=== PATIENT | male | born 1945 | race Caucasian/White ===

== ENCOUNTER 2019-11-08 07:06 | Outpatient (CLI) | payer MEDICARE, SELFPAY ==
--- NOTE | ~2019-11-08 | CT_ITS ---
EXAMINATION:CT lung screening DATE: 11/08/2019 07:25 INDICATION: Personal history of tobacco dependence. Smoker who quit 1 year ago with 60 pack year hist ory. TECHNIQUE: Computed tomography (CT) of the chest was performed without intravenous contrast. Automate d exposure control and iterative reconstruction technique were employed. The dose-length product (DLP ) was 85.61 mGy-cm. COMPARISON: Chest CT 09/21/2018 FINDINGS: There is moderate emphysema. Again seen is mild scarring at the lung apices. There is a 2 m m nodule in left upper lobe without change. A calcified left lung nodule and calcified left hilar lym ph nodes are consistent with old granulomatous disease. No pleural effusion. The heart size is normal . No pericardial effusion. There is a 3.0 cm cyst in left kidney. There is severe thoracic and cervic al spondylosis. IMPRESSION: 1. Lung-RADS category 2: Benign appearance or behavior. Continue annual screening with noncontrast lo w-dose chest CT in 12 months. Reviewed, dictated and finalized at location B. IMPRESSION: 1. Lung-RADS category 2: Benign appearance or behavior. Continue annual screeni ng with noncontrast low-dose chest CT in 12 months.
== END 2019-11-08 07:07 | disposition home or self-care (01) ==
LOC: ANHIMG 07:08
PROVIDERS: PCP Internal Medicine; Visit Provider Nurse Practitioner Family
DX: Z72.0 Tobacco use (principal); Z87.891 Personal history of nicotine dependence
CPT/HCPCS: G0297

== ENCOUNTER 2020-03-30 07:23 | Outpatient (CLI) | payer MEDICARE, SELFPAY ==
--- NOTE | ~2020-03-30 | US_ITS ---
US arterial ankle brachial ind INDICATION: Peripheral vascular disease. TECHNIQUE: Segmental pressures and plethysmographic and Doppler waveforms of the brachial and lower e xtremity arteries were obtained. COMPARISON: None. FINDINGS: Right and left brachial artery pressures of 176 mm Hg and 176 mm Hg, respectively, are concordant (no rmal difference <= 30 mmHg). The right ankle-brachial index (DINORAH) is 0.91 (normal >= 0.9-1.0). The right great toe-brachial index (TBI) is 0.43 (normal >= 0.60). The left DINORAH is 0.9. The left TBI is 0.5 to. IMPRESSION: 1. Diminished bilateral toe brachial indices consistent with mild peripheral arterial disease. Reviewed, dictated and finalized at location A. STRIAL RELATIONS DIRECTOR IMPRESSION: 1. Diminished bilateral toe brachial indices consistent with mild peripheral ar terial disease.
--- NOTE | ~2020-03-30 | US_ITS ---
EXAMINATION: US aorta [facility] scrn DATE: 03/30/2020 09:00 MACHINE SANDER INDICATION: Obesity. History of smoking. Screening for aortic aneurysm. TECHNIQUE: Grayscale, color Doppler, and pulsed Doppler images of the aorta and common iliac arteries were obtained. COMPARISON: None. FINDINGS: The proximal aorta measures 2.6 cm greatest sagittal dimension. The mid aorta measures 2.3 cm greates t sagittal dimension. The distal aorta measures 2.1 cm greatest sagittal dimension. The common iliac arteries are not visualized. IMPRESSION: 1. Normal caliber abdominal aorta without aneurysm. Reviewed, dictated and finalized at location A. INE SANDER
--- NOTE | 2020-03-30 08:21 | ECG_ITS ---
Measurements Intervals [place] Rate: 49 P: 38 CT: 192 QRS: 69 QRSD: 101 T: 30 QT: 440 QTc: 401 Interpretive Statements SINUS BRADYCARDIA DELAYED PRECORDIAL R/S TRANSITION BORDERLINE ECG Electronically Signed On 03-30-2020 8:55:08 CUSTOM HARVESTER by Tino Snowden D.O.
== END 2020-03-30 07:24 | disposition home or self-care (01) ==
LOC: ANHIMG 07:26
PROVIDERS: PCP Internal Medicine; Visit Provider Internal Medicine
DX: I73.9 Peripheral vascular disease, unspecified (principal); F17.200 Nicotine dependence, unspecified, uncomplicated; Z13.6 Encounter for screening for cardiovascular disorders; I10 Essential (primary) hypertension; R94.31 Abnormal electrocardiogram [ECG] [EKG]
CPT/HCPCS: 76706; 93005; 93922

== ENCOUNTER 2020-04-18 09:00 | Outpatient (CLI) | payer MEDICARE, SELFPAY ==
--- NOTE | ~2020-04-18 | CT_ITS ---
EXAMINATION: CT abdomen pelvis wo con EXAM DATE: 04/18/2020 09:27 INDICATION: K46.9 - Unspecified abdominal hernia without obstruction or gangrene. TECHNIQUE: Spiral CT of the abdomen and pelvis was performed without contrast. Axial, coronal and s agittal images were reviewed. The dose-length product (DLP) for this examination was 472.28 mGy-cm. The exposure was tailored according to patient size (auto mA exposure control), and iterative recons truction (ASIR) was used as additional dose reduction technique. Comparison is made to prior examinat ion from 04/11/2016. FINDINGS: The liver, spleen, adrenal glands and pancreas are unremarkable. Gallbladder is unremarkab le. No biliary obstruction. There is no nephrolithiasis or hydronephrosis. There are bilateral cristhian l lesions consistent with cysts. Prostate radiation seeds. The bladder is undistended at time of im aging. There is no retroperitoneal or pelvic lymphadenopathy. There is mild scattered arterioscler otic disease. The appendix is normal. There is mild scattered colonic diverticulosis. There is no adjacent inflamm atory change to suggest diverticulitis. The stomach and small bowel are unremarkable. There is expec kleber amount of colonic stool. No free intraperitoneal gas. The heart is normal in size. There are no pericardial or pleural effusions. Mild to moderate emphys cody. Interval decrease in density of the 1.2 cm L5 vertebral body sclerotic lesion, with size unchan ged. Moderate to severe disc disease L2-3. There is right hip gamma nail and left hip replacement. IMPRESSION: 1. Small umbilical fat-containing hernia. 2. Mild colonic diverticulosis. 3. L5 sclerotic focus stable in size. Reviewed, dictated and finalized at location A. NT CARE NURSE PRACTITIONER
== END 2020-04-18 09:01 | disposition home or self-care (01) ==
PROVIDERS: PCP Internal Medicine; Visit Provider Internal Medicine
DX: K46.9 Unspecified abdominal hernia without obstruction or gangrene (principal); R10.9 Unspecified abdominal pain; K42.9 Umbilical hernia without obstruction or gangrene; K57.30 Diverticulosis of large intestine without perforation or abscess without bleeding
CPT/HCPCS: 74176

== ENCOUNTER 2020-05-01 10:56 | Outpatient (CLI) | payer MEDICARE, SELFPAY ==
--- NOTE | ~2020-05-01 | XR_ITS ---
XR chest 2V DATE: 05/01/2020 11:22 INDICATION: Shortness of breath. Smoker. TECHNIQUE: PA and lateral views COMPARISON: 11/08/2019 CT lung screening FINDINGS: Normal heart size. There is aortic tortuosity. No hilar or mediastinal enlargement. No pulmonary infiltrate or consolidation, pleural effusion or pulmonary vascular congestion or pneumo thorax. Osteopenia. IMPRESSION: No active cardiopulmonary disease Aortic tortuosity Reviewed, dictated and finalized at location A. TRIMMER
== END 2020-05-01 10:57 | disposition home or self-care (01) ==
PROVIDERS: PCP Internal Medicine; Visit Provider Nurse Practitioner Family
DX: R06.02 Shortness of breath (principal); R05 Cough
CPT/HCPCS: 71046

== ENCOUNTER 2020-06-19 12:59 | Outpatient (CLI) | payer MEDICARE, SELFPAY | END 2020-06-19 13:00 | disposition home or self-care (01) | LOC: ANHAUDIO 13:00 | PROVIDERS: PCP Internal Medicine; Visit Provider Internal Medicine | DX: H90.71 Mixed conductive and sensorineural hearing loss, unilateral, right ear, with unrestricted hearing on the contralateral side (principal); H90.42 Sensorineural hearing loss, unilateral, left ear, with unrestricted hearing on the contralateral side | CPT/HCPCS: 92557; 92567 ==

== ENCOUNTER 2020-08-28 15:21 | Emergency (ER) | payer MEDICARE, SELFPAY ==
[2020-08-28] VITALS (7 sets, daily range): BP systolic 152–170; BP diastolic 65–82; PULSE 40–48; RESP 15–19; TEMP 36.3–36.9; O2SAT 98–99
--- NOTE | ~2020-08-28 | CT_ITS ---
EXAMINATION: CTA brain carotid DATE: 08/28/2020 16:48 INDICATION: Dizziness. Headache. TECHNIQUE: Computed tomographic angiography (CTA) of the head was performed without and with 100 mL O mnipaque-350 intravenous contrast. CTA of the neck was performed with intravenous contrast. Automated exposure control and iterative reconstruction technique were employed. The dose-length product was 1 602.90 mGy-cm. Maximum intensity projection and volume rendered 3D-reconstructions were created by ralph tucker technologist on a separate workstation. COMPARISON: None. FINDINGS: HEAD CTA: There is an old infarct in left temporal occipital region. There is no intracranial hemorrh age, acute infarction, or abnormal intracranial mass lesion. There is an old infarct in right caudate nucleus. There are scattered areas of low attenuation in the cerebral white matter, which is within normal limits for the patient's age. The ventricles are normal in size. Left vertebral artery is manav nant. There is no significant stenosis of basilar artery or the posterior cerebral arteries. There is embolization material in the area of right posterior cerebral communicating artery. There is a 1.2 c m saccular aneurysm of the cavernous portion of left internal carotid artery. The aneurysm causes mod erate stenosis of the internal carotid artery. Anterior communicating artery is normal. There is no s ignificant stenosis of the anterior or middle cerebral arteries. NECK CTA: The visualized portions of the lung apices demonstrate moderate emphysema. There are no pat hologically enlarged lymph nodes. There is no significant stenosis of the vertebral arteries. There i s plaque in the proximal internal carotid arteries. There is 0% stenosis of the proximal right collector of internal revenue al carotid artery relative to normal distal artery lumen diameter (NASCET criteria). There is 0% sten osis of the proximal left internal carotid artery relative to normal distal artery lumen diameter. Th ere is severe cervical spondylosis. IMPRESSION: 1. 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 I discussed this result with Dr. Hernandez. 2. 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 3. 0% stenosis of the proximal internal carotid arteries relative to normal distal artery lumen diame ters (NASCET criteria). Reviewed, dictated and finalized at location A. IMPRESSION: 1. 1.2 cm saccular aneurysm of the cavernous portion of left internal carotid a rtery causing moderate stenosis on the internal carotid artery. I discussed thi s result with Dr. Hernandez. 2. 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 3. 0% stenosis of the proximal internal carotid arteries relative to normal dis nancy artery lumen diameters (NASCET criteria).
--- NOTE | 2020-08-28 15:41 | ECG_ITS ---
Measurements Intervals [place] Rate: 42 P: 64 [place]: 216 QRS: 73 QRSD: 102 T: 30 QT: 485 QTc: 407 Interpretive Statements SINUS BRADYCARDIA WITH FIRST DEGREE AV BLOCK MINIMAL Q WAVES- INFERIOR LEADS BASELINE ARTIFACT- II, III, AVF, V1, V3-V6 ABNORMAL ECG Electronically Signed On 08-28-2020 16:48:10 CDT by Tino Snowden D.O.
--- NOTE | 2020-08-28 16:01 | ED.DIZZY ---
HPI - Dizziness General Chief Complaint: Dizziness Stated Complaint: Dizzy Time Seen by Provider: 08/28/20 15:33 Source: patient and RN notes reviewed Mode of arrival: ambulatory Limitations: no limitations History of Present Illness HPI Narrative: This is a 74 year old male with history right cerebral aneurysm who presents for evaluation of 3 weeks of dizziness. He states he started with a posterior headache for 1 week. He reports his headache is still intermittent also he denies a headache now. He states he has been having difficulty walking for 3 weeks, and he has almost fall. He reports intermittent episodes of spinning. His last episodes of dizziness was 30 minutes. He states 20 years ago he was diagnosed with his aneurysm after having similar episodes. His aneursym was repaired 20 years ago in [place] and he has not needed to follow with neurosurgeon since. He denies focal weakness, numbness or tingling. He denies blurred vision or double vision. Timing: episodic History of similar symptoms: Yes Exacerbating factors: movement/ambulation Related Data Allergies Allergy/AdvReac Type Severity Reaction Status Date / Time No Known Allergies Allergy Verified 08/28/20 16:33 Review of Systems Review of Systems: All systems reviewed & are unremarkable except as noted in HPI and below Constitutional: Constitutional: Denies chills and Denies fever(s) Eyes: Eyes: Denies change in vision ENT: Reports dizziness Cardiovascular: Cardiovascular: Reports chest pain Respiratory: Respiratory: Denies dyspnea Neurologic: Reports headache(s) [facility] Past Medical History Medical History Brain aneurysm COPD (chronic obstructive pulmonary disease) DVT of lower extremity, bilateral Hypertension Nicotine dependence SOB (shortness of breath) Tobacco abuse Surgical History Surgical History Cataract Family History Family History Sibling Acute myocardial infarction Other Family history of malignant neoplasm Social History Social History Smoking packs per day: 1 Smoking cigarettes per day: 20.0 Years smoked: 61 Smoking pack-years: 61.00 Smoking status: Current every day smoker Alcohol intake: current Exam Const: General: no acute distress and alert Orientation/consciousness: patient oriented x3 HENMT: Head: normocephalic and atraumatic Ears: TM's normal bilaterally General nose exam: Normal external nose present, Normal nares present and No nasal polyps present Face and sinus: face symmetric Mouth: Yes Normal oral and palatal mucosa present, Yes lip normal, Yes oropharynx normal and Yes moist mucous membranes Eyes: Pupils: Equal, round and reactive pupils present EOM: EOMs intact bilaterally and Nystagmus present Resp: Effort & Inspection: normal respiratory effort and no retractions Auscultation: clear to auscultation bilaterally Cardio: Rate: bradycardic Rhythm: regular rhythm Heart sounds: no murmurs GI: GI Palp: Yes Soft to palpation, No Tenderness to palpation present (GI) and No Guarding due to palpation present (GI) Auscultation: normal bowel sounds Neuro: General: patient oriented x3, moves all extremities, no meningeal signs, no focal motor deficits and CN's II-XI intact bilaterally Cranial nerves: Yes Nystagmus present horizontal Speech: normal speech Gait exam (Neuro): Normal gait present Motor exam (neuro): 5/5 motor strength present throughout Sensory Exam: normal sensation Coordination: [id number] test normal and [id number] test normal Psych: Mental Status: mental status grossly normal Affect: normal affect Course Reevaluation(s) Reevaluation #1: I have discussed with patient and his imaging and labs results. They have been made aware of new
--- NOTE | 2020-08-28 16:07 | PC.NURSE ---
Called lab and added on a Hepatic, Lipase, and Trop 1 Baseline. Talked to Jason
[2020-08-28 16:08] LABS: Basophils Percent Auto 0.3 % (0.2-1.2); Eosinophils Absolute Auto 0.2 K/mm3 (0-0.3); Eosinophils Percent Auto 2.8 % (0-4.4); Hematocrit 38.2 % (42.0-52.0); Hemoglobin 12.8 g/dL (14.0-18.0); Immature Granulocyte Absolute 0.03 K/mm3 (0.00-0.031); Immature Granulocyte Percent A 0.4 % (0-0.5); Lymphocytes Absolute Auto 1.64 K/mm3 (0.9-3.2); Mean Corpuscular HGB Conc 33.5 g/dl (32-36); Mean Corpuscular Hemoglobin 32.7 pg (26-34); Mean Corpuscular Volume 97.4 fl (80-100); Mean Platelet Volume 10.2 fl (7.4-10.4); Monocytes Absolute Auto 0.9 K/mm3 (0.1-0.6); Monocytes Percent Auto 12.7 % (2.6-8.5); Neutrophils Absolute Auto 4.3 K/mm3 (1.3-6.7); Neutrophils Percent Auto 60.8 % (45.5-73.1); Platelet Count Result 153 k/mm3 (150-375); Red Blood Count 3.92 M/mm3 (4.6-6.20); Red Cell Distribution Width 13.4 % (11.5-14.5); White Blood Count 7.1 K/mm3 (4.5-10.0)
[2020-08-28] MEDS: MECLIZINE HCL 25 MG TABLET PO (16:12)
[2020-08-28 16:20] LABS: Alanine Aminotransferase 12 U/L (4-50); Albumin Level 4.1 g/dL (3.5-5.1); Alkaline Phosphatase 81 U/L (38-126); Anion Gap 9 mmol/L (8-16); Aspartate Amino Transferase 28 U/L (17-59); Bilirubin,Total 0.8 mg/dL (0.2-1.3); Blood Urea Nitrogen 37 mg/dL (9-20); Calcium 9.3 mg/dL (8.4-10.2); Carbon Dioxide 24 mmol/L (22-30); Chloride 107 mmol/L (98-107); Estimated Glomerular Filt Rate 37; Glucose 102 mg/dL (75-110); Lipase 154 U/L (23-300); Potassium 4.4 mmol/L (3.4-5.0); Sodium 140 mmol/L (137-145)
[2020-08-28 16:22] LABS: Partial Thromboplastin Time 27.8 SECONDS (22.3-36.8)
[2020-08-28 16:31] LABS: Troponin I < 0.012 ng/mL (0.000-0.034)
--- NOTE | 2020-08-28 16:56 | PC.NURSE ---
Called Griselda martin, asked about the Hepatic, Lipase, and Trop I Baseline we called about at 1607. Said she would look for a green and run it.
[2020-08-28 17:07] LABS: Alanine Aminotransferase 13 U/L (4-50); Albumin Level 4.1 g/dL (3.5-5.1); Alkaline Phosphatase 80 U/L (38-126); Aspartate Amino Transferase 30 U/L (17-59); Bilirubin,Total 0.8 mg/dL (0.2-1.3); Lipase 157 U/L (23-300)
[2020-08-28] MEDS: SODIUM CHLORIDE 0.9% IV 1,000 ML 999 ML IV CONT (17:10)
[2020-08-28 17:17] LABS: Troponin I < 0.012 ng/mL (0.000-0.034)
--- NOTE | 2020-08-28 18:20 | PC.NURSE ---
Patient was able to get up, get dressed, and ambulate with cane without difficulty. Patient denies feeling dizzy while ambulating.
== END 2020-08-28 19:00 | disposition home or self-care (01) ==
PROVIDERS: Emergency Medicine; Emergency Provider General Practice; PCP Internal Medicine
DX: I67.1 Cerebral aneurysm, nonruptured (principal); R42 Dizziness and giddiness; J44.9 Chronic obstructive pulmonary disease, unspecified; Z86.718 Personal history of other venous thrombosis and embolism; I10 Essential (primary) hypertension; Z98.49 Cataract extraction status, unspecified eye; F17.210 Nicotine dependence, cigarettes, uncomplicated; R00.1 Bradycardia, unspecified; I44.0 Atrioventricular block, first degree
CPT/HCPCS: 36415; 70496; 70498; 80048; 80076; 83690; 84484; 85025; 85610; 85730; 93005; 96360; 99284; A9270; J7030; Q9967

== ENCOUNTER 2020-12-04 11:31 | Emergency (ER) | payer MEDICARE, SELFPAY ==
[2020-12-04 11:59] VITALS: BP 185/69; PULSE 48; RESP 16; TEMP 36.4; O2SAT 98
--- NOTE | 2020-12-04 12:01 | ECG_ITS ---
Measurements Intervals [place] Rate: 45 P: 51 MI: 205 QRS: 59 QRSD: 103 T: 34 QT: 447 QTc: 390 Interpretive Statements SINUS BRADYCARDIA BORDERLINE AV CONDUCTION DELAY DELAYED PRECORDIAL R/S TRANSITION BASELINE WANDER- I, III ABNORMAL ECG Electronically Signed On 12-04-2020 18:59:37 CDT by Tino Snowden D.O.
--- NOTE | 2020-12-04 12:13 | PC.NURSE ---
blood draw attempt x2 at triage; pt. pulled away each time, unable to obtain.
--- NOTE | 2020-12-04 12:42 | PC.NURSE ---
patient reported to triage desk that the wait was too long and left
== END 2020-12-04 12:40 | disposition left against medical advice (07) ==
PROVIDERS: Emergency Provider Emergency Medicine; PCP Internal Medicine
DX: R42 Dizziness and giddiness (principal)
CPT/HCPCS: 93005; 99199

== ENCOUNTER 2020-12-10 10:09 | Outpatient (CLI) | payer MEDICARE, SELFPAY ==
--- NOTE | ~2020-12-10 | MR_ITS ---
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 TECHNIQUE: Magnetic resonance imaging (MRI) of the brain/brain stem obtained without contrast. Sagit nancy T1, axial diffusion, gradient echo (T2*), T1, T2, FLAIR sequences obtained. Patient was then inj ected with 13 cc intravenous Multihance contrast. Axial and coronal postcontrast T1 weighted sequence s obtained. Correlation is made to CTA brain 08/28/2020. FINDINGS: There is an old right caudate head lacunar infarction. There is mild microangiopathy and ce rebral atrophy. There is moderate-sized region of left temporal lobe encephalomalacia consistent with old infarction. Correlation made to prior CT angiogram from August, demonstrates a surgical clip or coils treating a di stal right ICA aneurysm.. The 1.2 cm left parasellar aneurysm is identified but better seen on that p rior CT angiogram. There are no areas of restricted diffusion to suggest acute infarction. There is no acute hemorrhage seen on the T2*, a hemosiderin sensitive sequence. No intraparenchymal brain mass. The ventricles a re normal in size. There are no extra-axial collections. Patient has had bilateral ocular lens smalls rgery. Soft tissue is unremarkable. There are no areas of abnormal enhancement on the postcontrast images. IMPRESSION: 1. No acute intracranial findings. 2. Left parasellar ICA aneurysm, treated distal right ICA aneurysm. 3. 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 4. Mild age-related intracranial findings. 5. No MR findings to suggest NPH. Reviewed, dictated and finalized at location B.
== END 2020-12-10 10:10 | disposition home or self-care (01) ==
LOC: ANHIMG 10:11
PROVIDERS: PCP Internal Medicine; Visit Provider Internal Medicine
DX: G91.2 (Idiopathic) normal pressure hydrocephalus (principal)
CPT/HCPCS: 70553; A9577

== ENCOUNTER 2021-03-15 10:06 | Outpatient (CLI) | payer MEDICARE, SELFPAY ==
--- NOTE | ~2021-03-15 | CT_ITS ---
EXAMINATION: CT lung screening DATE: 03/15/2021 11:14 INDICATION: Personal history of tobacco dependence. TECHNIQUE: Computed tomography (CT) of the chest was performed without intravenous contrast. The dose -length product was 118.94 mGy-cm. Automated exposure control and iterative reconstruction technique were employed. COMPARISON: CT dated 11/08/2019 FINDINGS: Heart size normal. No significant pleural or pericardial effusion. No thoracic lymphadenopa thy. There are multiple bilateral renal cysts. Moderate-severe emphysema. There is a 2 mm right upper lobe nodule, image 22. There is a 2 mm left upper lobe nodule. No pneumothorax. There is atheroscler osis and ectasia of the aorta. No peripheral airspace consolidation. There are calcified left hilar l ymph nodes, consistent with chronic granulomatous disease. Moderate thoracic spondylosis. No focal ly tic or blastic lesions. IMPRESSION: 1. Lung-RADS category 2: Benign appearance or behavior. Continue annual screening with noncontrast lo w-dose chest CT in 12 months. Reviewed, dictated and finalized at location A. FICIAL TEETH INSPECTOR IMPRESSION: 1. Lung-RADS category 2: Benign appearance or behavior. Continue annual screeni ng with noncontrast low-dose chest CT in 12 months.
== END 2021-03-15 10:07 | disposition home or self-care (01) ==
LOC: ANHIMG 10:09
PROVIDERS: PCP Internal Medicine; Visit Provider Nurse Practitioner Family
DX: Z12.2 Encounter for screening for malignant neoplasm of respiratory organs (principal); Z87.891 Personal history of nicotine dependence
CPT/HCPCS: 71271

== ENCOUNTER 2021-04-22 12:06 | Outpatient (RCR) | payer MEDICARE, SELFPAY ==
[2021-04-22] MEDS: ACETAMINOPHEN 325 MG TABLET 650 MG PO (14:30)
[2021-04-22] MEDS: FAMOTIDINE 20 MG TABLET PO (14:31)
[2021-04-22] MEDS: diphenhydrAMINE HCl CAP 25 MG CAPSULE PO (14:31)
[2021-04-22 15:52] VITALS: BP 129/70; PULSE 77; TEMP 36.6; O2SAT 97
== END 2021-04-22 16:00 ==
LOC: AMCINF 12:06
PROVIDERS: PCP Internal Medicine; Visit Provider Internal Medicine Hematology & Oncology
DX: U07.1 COVID-19 (principal); I10 Essential (primary) hypertension; J44.9 Chronic obstructive pulmonary disease, unspecified
CPT/HCPCS: A9270; M0247; Q0247

== ENCOUNTER 2021-07-15 09:33 | Outpatient (CLI) | payer MEDICARE, SELFPAY ==
--- NOTE | ~2021-07-15 | XR_ITS ---
EXAMINATION: XR chest 2V DATE: 07/15/2021 10:17 INDICATION: Cough and shortness of breath. TECHNIQUE: Frontal and lateral views of the chest were obtained. COMPARISON: Chest 2 views 05/01/2020, chest CT 03/15/2021 FINDINGS: The lungs are hyperexpanded with lucencies, consistent with emphysema. There is mild scarri ng at right lung base. No pleural effusion or pneumothorax. The heart size is normal. IMPRESSION: 1. Emphysema. Reviewed, dictated and finalized at location B. IMPRESSION: 1. Emphysema.
[2021-07-15 10:21] LABS: Basophils Percent Auto 0.5 % (0.2-1.2); Eosinophils Absolute Auto 0.2 K/mm3 (0-0.3); Eosinophils Percent Auto 2.5 % (0-4.4); Hematocrit 35.6 % (42.0-52.0); Hemoglobin 11.9 g/dL (14.0-18.0); Immature Granulocyte Absolute 0.01 K/mm3 (0.00-0.031); Immature Granulocyte Percent A 0.2 % (0-0.5); Lymphocytes Absolute Auto 1.29 K/mm3 (0.9-3.2); Lymphocytes Percent Auto 20.1 % (18.3-44.2); Mean Corpuscular HGB Conc 33.4 g/dl (32-36); Mean Corpuscular Hemoglobin 32.6 pg (26-34); Mean Corpuscular Volume 97.5 fl (80-100); Mean Platelet Volume 9.7 fl (7.4-10.4); Monocytes Absolute Auto 0.9 K/mm3 (0.1-0.6); Monocytes Percent Auto 13.6 % (2.6-8.5); Neutrophils Absolute Auto 4.1 K/mm3 (1.3-6.7); Neutrophils Percent Auto 63.1 % (45.5-73.1); Platelet Count Result 183 k/mm3 (150-375); Red Blood Count 3.65 M/mm3 (4.6-6.20); Red Cell Distribution Width 13.5 % (11.5-14.5); White Blood Count 6.4 K/mm3 (4.5-10.0)
[2021-07-15 10:34] LABS: Alanine Aminotransferase 13 U/L (4-50); Albumin Level 4.1 g/dL (3.5-5.1); Alkaline Phosphatase 101 U/L (38-126); Anion Gap 8 mmol/L (8-16); Aspartate Amino Transferase 27 U/L (17-59); Bilirubin,Total 0.7 mg/dL (0.2-1.3); Blood Urea Nitrogen 17 mg/dL (9-20); Calcium 8.9 mg/dL (8.4-10.2); Carbon Dioxide 22 mmol/L (22-30); Chloride 109 mmol/L (98-107); Estimated Glomerular Filt Rate 46; Glucose 104 mg/dL (65-110); Sodium 139 mmol/L (137-145)
== END 2021-07-15 09:34 | disposition home or self-care (01) ==
PROVIDERS: PCP Internal Medicine; Visit Provider Nurse Practitioner Family
DX: J44.9 Chronic obstructive pulmonary disease, unspecified (principal); R06.02 Shortness of breath
CPT/HCPCS: 36415; 71046; 80053; 85025

== ENCOUNTER 2021-07-19 09:28 | Outpatient (CLI) | payer MEDICARE, SELFPAY ==
--- NOTE | ~2021-07-19 | NM_ITS ---
EXAMINATION: NM alia stress w perfusion DATE: 07/19/2021 11:55 INDICATION: Dyspnea on exertion. TECHNIQUE: Rest images were obtained following intravenous administration of 10 mCi Tc99m tetrofosmin (Myoview). The patient was infused intravenously with Lexiscan (regadenoson). Then, 20.8 mCi Tc99m t etrofosmin (Myoview) was administered intravenously, and stress images were obtained. Data was recons tructed into short axis and horizontal and vertical long axis SPECT images. Gated SPECT images were a lso obtained. COMPARISON: Chest CT 03/15/2021 FINDINGS: There is no definite reversible or fixed perfusion abnormality to suggest ischemia or infar ction. There is no segmental wall motion abnormality. Left ventricular ejection fraction measures > 70%. IMPRESSION: 1. No definite ischemia or infarct. 2. Normal left ventricular ejection fraction measuring >70%. Reviewed, dictated and finalized at location A.
--- NOTE | 2021-07-19 10:07 | EST_ITS ---
Patient Info Name: Reji Briceno Age: 75 years : 1945 Gender: Male Ht: 49 in Wt: 147 lbs BSA: 1.57 m2 HR: 52 bpm BP: 148 / 73 mmHg Heart Rhythm: Sinus Rhythm Exam Date: 07/19/2021 10:33 AM Exam Location: [facility] Stress Patient Status: Outpatient Admit Date: 07/19/2021 Staff Ordering Physician: Gabino Bailey APRN Attending Provider: Gabino Bailey APRN Exam Type: CA stress alia w NM Study Info Indications R06.02 - Shortness of breath A regadenoson stress test was performed. Summary 1. 1. Negative lexiscan stress test for ischemic ST changes by ECG criteria. 2. 2. Stable hemodynamics throughout the test. 3. 3. Nuclear scan to follow and will be reported separately. Please correlate with it. 4. 4. Patient informed of the above results. Protocol: Lexiscan Stress ECG Details Stage: REST Duration (min): 1 min : 17 sec HR (bpm): 54 SBP (mmHg): 148 DBP (mmHg): 73 Stage: REST Duration (min): 9 min : 31 sec HR (bpm): 57 SBP (mmHg): 148 DBP (mmHg): 73 Stage: STAGE 1 Duration (min): 0 min : 59 sec HR (bpm): 65 SBP (mmHg): 148 DBP (mmHg): 73 Stage: RECOVERY Duration (min): 1 min : 0 sec HR (bpm): 71 SBP (mmHg): 136 DBP (mmHg): 70 Stage: RECOVERY Duration (min): 2 min : 0 sec HR (bpm): 69 SBP (mmHg): 136 DBP (mmHg): 70 Stage: RECOVERY Duration (min): 2 min : 59 sec HR (bpm): 67 SBP (mmHg): 133 DBP (mmHg): 73 Rest HR: 57 bpm Peak HR: 74 bpm Rest Sys BP: 148 mmHg Peak Sys BP: 136 mmHg Max Pred HR: 145 bpm % Max Pred HR: 51 % Target HR: 123 bpm Max RPP: 10,064 bpm*mmHg Termination Reason: Completed protocol Cardiac Symptoms: Shortness of breath Total Time: 1 min : 0 sec Rest Xavier BP: 73 mmHg Peak Xavier BP: 70 mmHg Total Dose: 0.4 mg Resting ECG Sinus bradycardia, first degree AV block, delayed precordial R/S transition. Stress ECG No ST changes. Arrhythmias None. Report Signatures
== END 2021-07-19 09:29 | disposition home or self-care (01) ==
LOC: ANHCARD 09:31
PROVIDERS: PCP Internal Medicine; Visit Provider Nurse Practitioner Family
DX: R06.02 Shortness of breath (principal)
CPT/HCPCS: 78452; 93017; A9502; J2785

== ENCOUNTER 2021-08-11 11:31 | Outpatient (CLI) | payer MEDICARE, SELFPAY ==
--- NOTE | ~2021-08-11 | XR_ITS ---
XR abdomen/kub 1V 08/11/2021 11:51 Indication: Abdominal distention Procedure: KUB Comparison: No prior studies for comparison. Findings: Nonobstructive bowel gas pattern. Large amount of retained fecal material in the colon. The re is a left total hip arthroplasty. There are dynamic compression screws in the right femoral neck. Lung bases unremarkable. Cardiomegaly. Impression: 1: Nonobstructive bowel gas pattern with large amount of retained fecal material in the colon. Reviewed, dictated and finalized at location A. Impression: 1: Nonobstructive bowel gas pattern with large amount of retained fecal materia l in the colon.
== END 2021-08-11 11:32 | disposition home or self-care (01) ==
PROVIDERS: PCP Internal Medicine; Visit Provider Internal Medicine
DX: R14.0 Abdominal distension (gaseous) (principal); N20.0 Calculus of kidney
CPT/HCPCS: 74018

== ENCOUNTER 2021-08-19 13:30 | Outpatient (CLI) | payer MEDICARE, SELFPAY ==
--- NOTE | 2021-08-20 11:53 | WPDSIXMINUTE ---
Six Minute Walk Procedure Procedure Performed Pulmonary Stress Test (6 min walk) Six Minute Walk Six Minute Walk: This 6 minute walk test was carried out with the patient breathing ambient air. The pre walk oxyhemoglobin saturation was 96%. The patient walked over 335 m with no stops during testing. During the walk, the oxyhemoglobin saturation remained 93% or higher. The perceived dyspnea on the Marc scale was 3 at baseline and increased to 5 at the end of the testing. Impression: No evidence of oxyhemoglobin desaturation on this testing.
--- NOTE | 2021-08-20 11:56 | WPDPFTINT ---
PFT Procedure Performed PFT Procedure Performed Spirometry with Pre/Post Bronchodilator Plethysmography (Lung Vol) Diffusing Cap (DLCO) Flow Vol Loop PFT Interpretation Lung volumes were measured with the body plethysmography method. Lung volumes are unremarkable. Spirometry showed normal normal FVC and FEV1, diminished mid expiratory flow rates at 36 % predicted and a diminished FEV1 to FVC ratio of 55% consistent with mild obstructive airway disease. Following administration of a bronchodilator there was no significant increase in expiratory flow rates. Lung diffusion capacity is severely reduced at 40% predicted. Flow volume loop is consistent with obstructive airway disease. Impression: Mild obstructive airway disease in the form of small airway disease with no response to bronchodilators on this testing. Severely reduced lung diffusion capacity.
== END 2021-08-19 13:31 | disposition home or self-care (01) ==
PROVIDERS: PCP Internal Medicine; Visit Provider Nurse Practitioner Family
DX: R06.02 Shortness of breath (principal)
CPT/HCPCS: 94060; 94618; 94726; 94729

== ENCOUNTER 2022-03-29 10:05 | Outpatient (CLI) | payer MEDICARE, SELFPAY ==
--- NOTE | ~2022-03-29 | CT_ITS ---
EXAMINATION:CT lung screening DATE: 03/29/2022 10:26 INDICATION: Tobacco use. Smoker who quit 1 year ago with 61 pack year history. TECHNIQUE: Computed tomography (CT) of the chest was performed without intravenous contrast. Automate d exposure control and iterative reconstruction technique were employed. The dose-length product (DLP ) was 111.13 mGy-cm. COMPARISON: Chest CT 03/15/2021 FINDINGS: There is severe emphysema. There is mild scarring in paraspinal right lower lobe. There is mild scarring at the lung apices. There is mild atelectasis bilaterally. There is a 2 mm nodule in ri ght upper lobe. There is a 3 mm nodule in right upper lobe. There is a 2 mm nodule in left upper lobe . No pleural effusion. Calcified left hilar lymph nodes are consistent with old granulomatous disease . No pleural effusion. The heart size is normal. No pericardial effusion. There is a 4.1 cm cyst in l eft kidney. There is severe cervical and thoracic spondylosis. IMPRESSION: 1. Lung-RADS category 2: Benign appearance or behavior. Continue annual screening with noncontrast lo w-dose chest CT in 12 months. Reviewed, dictated and finalized at location A. ECTOR ALIGNING IMPRESSION: 1. Lung-RADS category 2: Benign appearance or behavior. Continue annual screeni ng with noncontrast low-dose chest CT in 12 months.
== END 2022-03-29 10:06 | disposition home or self-care (01) ==
PROVIDERS: PCP Internal Medicine; Visit Provider Nurse Practitioner Family
DX: Z12.2 Encounter for screening for malignant neoplasm of respiratory organs (principal); Z87.891 Personal history of nicotine dependence
CPT/HCPCS: 71271

== ENCOUNTER 2022-08-20 09:06 | Outpatient (CLI) | payer MEDICARE, SELFPAY ==
--- NOTE | ~2022-08-20 | XR_ITS ---
EXAMINATION: XR lumbar spine 2-3V DATE: 08/20/2022 09:46 INDICATION: Lumbar radiculopathy. Low back pain. TECHNIQUE: 3 views of lumbar spine were obtained. COMPARISON: CT abdomen and pelvis 04/18/2020 FINDINGS: There is 3 degrees levocurvature of lumbar spine. Vertebral body heights are normal. There is a chronic benign sclerotic lesion in L5 vertebral body. There is severely decreased disc height at L2-L3 with endplate remodeling. There is multilevel mild to moderate facet joint osteoarthrosis. The re is a total left hip arthroplasty. There is internal fixation of proximal right femur. IMPRESSION: 1. Severe spondylosis at L2-L3. Reviewed, dictated and finalized at location A.
--- NOTE | ~2022-08-20 | XR_ITS ---
EXAMINATION: XR ribs BI 3V w CXR 2V DATE: 08/20/2022 09:46 INDICATION: Pleurodynia. TECHNIQUE: Frontal and lateral views of the chest and 2 views on 3 radiographs of the right ribs and 2 views on 3 radiographs of the left ribs were obtained. COMPARISON: Chest 2 views 07/15/2021, chest CT 03/29/2022 FINDINGS: CHEST TWO VIEWS: There are lucencies and interstitial opacities in the lungs, consistent with emphyse ma. No pleural effusion or pneumothorax. The heart size is normal. BILATERAL RIBS: There is no rib fracture. IMPRESSION: 1. No rib fracture. 2. Emphysema. Reviewed, dictated and finalized at location A.
--- NOTE | ~2022-08-20 | XR_ITS ---
. EXAMINATION: XR thoracic spine 3V DATE: 08/20/2022 09:47 INDICATION: Radiculopathy. Mid to low back pain. TECHNIQUE: 3 views of thoracic spine were obtained. COMPARISON: Chest CT 03/29/2022 FINDINGS: There is 9 degrees dextrocurvature of thoracic spine. There is 3 mm anterolisthesis of C7 o n T1. Vertebral body heights are normal. There is severe cervical spondylosis. There is multilevel de creased disc height, severe from T6-T7 through T9-T10. There is multilevel facet joint osteoarthritis . IMPRESSION: 1. Severe thoracic spondylosis. Reviewed, dictated and finalized at location A.
== END 2022-08-20 09:07 | disposition home or self-care (01) ==
PROVIDERS: PCP Family Medicine; Visit Provider Nurse Practitioner Family
DX: R07.81 Pleurodynia (principal); M54.10 Radiculopathy, site unspecified; M54.04 Panniculitis affecting regions of neck and back, thoracic region; M43.04 Spondylolysis, thoracic region; M43.06 Spondylolysis, lumbar region; J43.9 Emphysema, unspecified
CPT/HCPCS: 71046; 71110; 72072; 72100

== ENCOUNTER 2023-03-13 10:23 | Observation (INO) | payer MEDICARE, SELFPAY ==
[2023-03-13] VITALS (36 sets, daily range): BP systolic 105–150; BP diastolic 42–112; PULSE 87–121; RESP 16–30; TEMP 36.2–36.7; O2SAT 90–100; BMI 28.2
--- NOTE | ~2023-03-13 | XR_ITS ---
EXAMINATION: XR chest 2V DATE: 03/13/2023 10:49 INDICATION: Bilateral lower chest pain TECHNIQUE: PA and lateral views of the chest are obtained. COMPARISON: 08/20/2022 FINDINGS: The lungs are free of acute opacities. No pleural effusion or pneumothorax. The cardiomedia stinal silhouette is normal. There is severe thoracic spondylosis. IMPRESSION: 1. No acute cardiopulmonary abnormality. Reviewed, dictated and finalized at location B. STRY AID TECHNICIAN
--- NOTE | 2023-03-13 10:24 | ECG_ITS ---
Measurements Intervals [place] Rate: 77 P: 85 MD: 196 QRS: 87 QRSD: 89 T: 76 QT: 357 QTc: 406 Interpretive Statements SINUS RHYTHM WITH OCCASIONAL VENTRICULAR PREMATURE COMPLEXES WITH OCCASIONAL SUPRAVENTRICULAR PREMATURE COMPLEXES NONSPECIFIC ST ABNORMALITY BORDERLINE ECG COMPARED TO ECG 12/04/2020 12:06:26 SIN[address]M NOW PRESENT ST (T WAVE) DEVIATION NOW PRESENT Electronically Signed On 03-13-2023 17:14:45 EDGING MACHINE OPERATOR by Hemant Rios M.D.
[2023-03-13 10:39] LABS: Basophils Percent Auto 0.2 % (0.2-1.2); Eosinophils Absolute Auto 0.2 K/mm3 (0-0.3); Hematocrit 38.1 % (42.0-52.0); Hemoglobin 12.7 g/dL (14.0-18.0); Immature Granulocyte Absolute 0.01 K/mm3 (0.00-0.031); Immature Granulocyte Percent A 0.2 % (0-0.5); Immature Platelet Fraction Pct 2.9 % (0.9-11.2); Lymphocytes Absolute Auto 0.84 K/mm3 (0.9-3.2); Lymphocytes Percent Auto 16.8 % (18.3-44.2); Mean Corpuscular HGB Conc 33.3 g/dl (32-36); Mean Corpuscular Hemoglobin 32.6 pg (26-34); Mean Corpuscular Volume 97.9 fl (80-100); Mean Platelet Volume 9.6 fl (7.4-10.4); Monocytes Absolute Auto 0.6 K/mm3 (0.1-0.6); Monocytes Percent Auto 11.4 % (2.6-8.5); Neutrophils Absolute Auto 3.4 K/mm3 (1.3-6.7); Neutrophils Percent Auto 68.4 % (45.5-73.1); Platelet Count Result 120 k/mm3 (150-375); Red Blood Count 3.89 M/mm3 (4.6-6.20); Red Cell Distribution Width 14.6 % (11.5-14.5)
[2023-03-13 10:51] LABS: Alanine Aminotransferase 19 U/L (6-50); Alkaline Phosphatase 103 U/L (38-126); Anion Gap 7 mmol/L (8-16); Aspartate Amino Transferase 33 U/L (17-59); Bilirubin,Total 0.8 mg/dL (0.2-1.3); Blood Urea Nitrogen 17 mg/dL (9-20); Carbon Dioxide 24 mmol/L (22-30); Chloride 108 mmol/L (98-107); Estimated Glomerular Filt Rate 59; Glucose 112 mg/dL (65-110); Lipase 150 U/L (23-300); Potassium 3.9 mmol/L (3.4-5.0); Sodium 139 mmol/L (137-145)
[2023-03-13 11:03] LABS: Troponin I < 0.012 ng/mL (0.000-0.034)
[2023-03-13] MEDS: ASPIRIN 81 MG CHEWABLE TABLET 243 MG PO (11:28)
[2023-03-13] MEDS: methylPREDNISolone SOD SUCC 125 MG VIAL IV PUSH (11:28)
[2023-03-13] MEDS: ALBUTEROL SULFATE NEB 2.5 MG/3 ML INH 15 MG INHALATION (11:34)
[2023-03-13] MEDS: IPRATROPIUM BR 0.02% INH SOLN 0.5 MG/2.5 ML VIAL 1.5 MG INHALATION (11:34)
[2023-03-13 11:47] LABS: Partial Thromboplastin Time 35.2 SECONDS (22.3-36.8); Prothrombin Time 13.4 Seconds (11.1-14.7)
--- NOTE | 2023-03-13 12:15 | ED.GENADULT ---
HPI - General Adult General Chief complaint: Chest Pain Stated complaint: chest pain Time Seen by Provider: 03/13/23 11:03 History of Present Illness HPI narrative: Patient is a 77-year-old male who presents ER with shortness of breath and cough. Ongoing for the last month. He had been seen by pulmonology was on a Z-Andrea and steroids for a short amount of time. He continues to get worse. No fevers or chills or sweats. Reports he had chest tightness today that is now resolved. No exertional chest pain. No loss of consciousness. Cough is occasionally productive. Related Data Home Medications Medication Instructions Recorded Confirmed acetaminophen 500 mg oral powder 500 mg PO Q6H PRN 04/11/22 11/14/22 packet (Tylenol Extra Strength) Allergies Allergy/AdvReac Type Severity Reaction Status Date / Time No Known Allergies Allergy Verified 11/14/22 11:37 Review of Systems Review of Systems: All systems reviewed & are unremarkable except as noted in HPI and below Constitutional: Constitutional: Reports no additional constitutional complaints ENT: Reports system reviewed and no additional complaints, except as documented Cardiovascular: Cardiovascular: Reports no additional cardiovascular complaints Respiratory: Respiratory: Reports chest congestion, Reports cough, Reports dyspnea and Reports wheezing Gastrointestinal: Gastrointestinal: Reports no additional gastrointestinal complaints Musculoskeletal: Musculoskeletal: Reports no additional musculoskeletal complaints [facility] Past Medical History Medical History Brain aneurysm CKD (chronic kidney disease) COPD (chronic obstructive pulmonary disease) COVID-14 Apr 2021. Received infusion therapy 04/22 DVT of lower extremity, bilateral Dyslipidemia Early satiety Essential hypertension Hematochezia History of prostate cancer Hypertension Marijuana use Nicotine dependence Obesity (BMI 30.0-34.9) DOMINIC (obstructive sleep apnea) PVD (peripheral vascular disease) SOB (shortness of breath) Tobacco abuse Surgical History Surgical History Cataract Family History Family History Sibling Acute myocardial infarction Other Family history of malignant neoplasm Social History Social History Smoking packs per day: 1 Smoking cigarettes per day: 20.0 Years smoked: 61 Smoking pack-years: 61.00 Smoking status: Current every day smoker Tobacco type: cigarettes Second hand tobacco smoke exposure: No Alcohol intake: never Substance use: current Substance use type: marijuana Other substance usage details: rare marijuana use Last use: Occasionally Lack of Transportation: No Lack of Food: Never True Current Housing: I Have Housing Concerned About Future Housing: No Difficulty Paying Gas/Electric Bills: No Difficulty Paying for Meds: YES Currently Unemployed: No Education: Grade School Living arrangements: with family Gender identity (if verbalized by the patient): Male Spiritual care concerns: No Exam Narrative: GENERAL: Well-appearing, well-nourished, and in no acute distress. HEAD: Normocephalic, atraumatic. EYES: PERRL and EOMI. ENT: Mucous membranes moist. CHEST: Diffuse expiratory wheezing. No respiratory distress. HEART: Regular rate and rhythm. Normal peripheral pulses. ABDOMEN: Soft, nontender, nondistended. EXTREMITIES: Normal range of motion. No edema. SKIN: Warm, dry, no rash. NEURO: Alert and oriented x3. PSYCH: Normal mood and affect. Course Course Emergency Course: that patient with exertional hypoxia to 85%. Admit to hospitalist service. Scheduled steroids ordered. Vital Signs Vital signs: Vital Signs Temperature 98.1 F 03/13/23 10:35 Pulse Rate 92
--- NOTE | 2023-03-13 13:30 | ECG_ITS ---
Measurements Intervals [place] Rate: 107 P: 87 TN: 162 QRS: 94 QRSD: 90 T: -4 QT: 294 QTc: 392 Interpretive Statements SINUS TACHYCARDIA WITH FREQUENT SUPRAVENTRICULAR PREMATURE COMPLEXES BORDERLINE RIGHT AXIS DEVIATION [QRS AXIS > 90] NONSPECIFIC ST & T-WAVE ABNORMALITY BORDERLINE ECG COMPARED TO ECG 03/13/2023 10:29:15 SINUS TACHYCARDIA NOW PRESENT T-WAVE ABNORMALITY NOW PRESENT Electronically Signed On 03-13-2023 17:23:19 SPEECH INSTRUCTOR by Hemant Rios M.D.
[2023-03-13 14:05] LABS: Troponin I < 0.012 ng/mL (0.000-0.034)
--- NOTE | 2023-03-13 14:24 | PC.NURSE ---
Pt road tested with Dr. Zheng, Sa02 87% during ambulation. Pt increase SOB with exertion.
--- NOTE | 2023-03-13 15:00 | PM.IMHP ---
H&P: HPI History of Present Illness Date/Time: 03/13/23 15:00 Chief Complaint: SOB, Cough, Chest Pain Narrative: 77 y/o M presents here with SOB, productive cough, and chest pain with PMH of CKD, COPD, DVT, dyslipidemia, HTN, smoker, DOMINIC, and PVD. Patient presents here with increased SOB and productive cough x2 months. Was treated with a z-pack and steroids at the end of Jan by her route relief driver. Had some improvement for 3 days and then SOB/productive cough again worsened. Patient put off being seen until today when he developed midsternal/upper chest pain this morning. It was non-radiating and described at pain v tightness. No associated N/V, diaphoresis, or syncope. Resolved with neb and IV steroid administration in the ED. Currently an everyday smoker - 1 ppd for 65 years. Reports he is interested in cessation due to symptoms today. Patient was setup for outpatient treatment and has follow-up with route relief driver on 03/16. However, patient's O2 saturation dropped to 85% on RA with ambulation and currently 93% on RA at rest. Has not historically needed supplemental O2. Workup revealed a normal WBC, stable hgb, creatinine below baseline, and negative trop x2. Review of Systems Review of Systems: All systems reviewed & are unremarkable except as noted in HPI and below PMFSH Past Medical History Medical History Brain aneurysm CKD (chronic kidney disease) COPD (chronic obstructive pulmonary disease) COVID-14 Apr 2021. Received infusion therapy 04/22 DVT of lower extremity, bilateral Dyslipidemia Early satiety Essential hypertension Hematochezia History of prostate cancer Hypertension Marijuana use Nicotine dependence Obesity (BMI 30.0-34.9) DOMINIC (obstructive sleep apnea) PVD (peripheral vascular disease) SOB (shortness of breath) Tobacco abuse Surgical History Surgical History Cataract Family History Family History Sibling Acute myocardial infarction Other Family history of malignant neoplasm Social History Social History Smoking packs per day: 1 Smoking cigarettes per day: 20.0 Years smoked: 61 Smoking pack-years: 61.00 Smoking status: Current every day smoker Tobacco type: cigarettes Second hand tobacco smoke exposure: No Alcohol intake: never Substance use: current Substance use type: marijuana Other substance usage details: rare marijuana use Last use: Occasionally Lack of Transportation: No Lack of Food: Never True Current Housing: I Have Housing Concerned About Future Housing: No Difficulty Paying Gas/Electric Bills: No Difficulty Paying for Meds: YES Currently Unemployed: No Education: Grade School Living arrangements: with family Gender identity (if verbalized by the patient): Male Spiritual care concerns: No Meds Home Medications and Allergies Home Medications Medication Instructions Recorded Confirmed Type acetaminophen 500 mg oral powder 500 mg PO Q6H PRN 04/11/22 11/14/22 History packet (Tylenol Extra Strength) fluticasone fur. 100 mcg-umeclid 1 inh inhalation DAILY #60 ea 05/30/22 11/14/22 Rx 62.5 mcg-vilant 25 mcg inhalat.powder aspirin 81 mg tablet,delayed 81 mg PO DAILY #90 tabs 09/22/22 11/14/22 Rx release (Adult Low Dose Aspirin) albuterol sulfate 90 mcg/actuation 1 - 2 inh inhalation Q4-6H PRN 10/24/22 11/14/22 Rx aerosol inhaler (Ventolin HFA) shortness of breath or wheezing #8.5 grams amlodipine 5 mg tablet 5 mg PO DAILY #90 tabs 01/24/23 Rx rosuvastatin 20 mg tablet 20 mg PO DAILY #90 tabs 01/24/23 Rx tamsulosin 0.4 mg capsule 0.4 mg PO DAILY #90 caps 01/24/23 Rx azithromycin 250 mg tablet See Rx Instructions PO .COMPLEX #6 02/20/23 Rx tabs losartan 100 mg tablet 50 mg PO DAILY #30 t
--- NOTE | 2023-03-13 16:19 | ECG_ITS ---
Measurements Intervals [place] Rate: 100 P: TN: 0 QRS: 97 QRSD: 95 T: 59 QT: 297 QTc: 384 Interpretive Statements SINUS TACHYCARDIA WITH FREQUENT PREMATURE ATRIAL CONTRACTIONS BORDERLINE RIGHT AXIS DEVIATION [QRS AXIS > 90] NONSPECIFIC ST & T-WAVE ABNORMALITY BORDERLINE ECG COMPARED TO ECG 03/13/2023 13:40:50 NO SIGNIFICANT CHANGE Electronically Signed On 03-13-2023 17:30:16 SURFACE PLATE INSPECTOR by Hemant Rios M.D.
[2023-03-13 16:46] LABS: Troponin I < 0.012 ng/mL (0.000-0.034)
[2023-03-13 17:02] LABS: Influenza A QL RT-PCR Negative (Negative); Influenza B QL RT-PCR Negative (Negative); RSV RNA, RT-PCR Positive (Negative); SARS-CoV-2 RNA PCR Negative (Negative)
[2023-03-13] MEDS: methylPREDNISolone SOD SUCC 125 MG VIAL 60 MG IV PUSH ×2 (17:57→23:11)
--- NOTE | 2023-03-13 19:26 | PC.NURSE ---
Assumed care of pt. Report from JAZMÍN Tejeda. Pt sitting at side of bed awaiting bed assignment. Denies any needs at this time. axox4. Tachycardic, but otherwise VSS. Will continue to monitor.
--- NOTE | 2023-03-13 20:09 | PC.NURSE ---
Attempted to call report. RN busy but will call back shortly.
[2023-03-13] MEDS: WATER FOR IRRIGATION, STERILE 1,000 ML BOTTLE 1000 ML (21:07)
--- NOTE | 2023-03-13 21:25 | ADMGEN ---
This patient, Reji Briceno, was admitted to [facility] Surg Room 302-01. Patient/family oriented to hospital policies and general routines including ID bracelet, bed and alarms, visiting hours, pain management, procedures, bathroom and other care routines, personal items, smoking policy, room service/diet, and visiting hours. Information on how to activate the Rapid Response Team has been discussed. Patient/Family are encouraged to report perceived risks to care and to ask questions if they do not understand what they are told or what they should do.
[2023-03-13] MEDS: MELATONIN 5 MG TABLET PO (23:11)
[2023-03-14] VITALS (8 sets, daily range): BP systolic 132–141; BP diastolic 65–71; PULSE 83–104; RESP 18; TEMP 35.6–36.5; O2SAT 93–96
--- NOTE | 2023-03-14 00:12 | PCRCNOTE ---
Window of time for administration has passed. See next scheduled administration.
--- NOTE | 2023-03-14 03:11 | PCRCNOTE ---
Patient refused his 0200 updraft treatment due to wanting sleep. RT told pt his next treatment would be at 0800. Pt said okay.
[2023-03-14] MEDS: methylPREDNISolone SOD SUCC 125 MG VIAL 60 MG IV PUSH (06:03)
[2023-03-14 06:39] LABS: Basophils Percent Auto 0.3 % (0.2-1.2); Hematocrit 36.6 % (42.0-52.0); Hemoglobin 11.9 g/dL (14.0-18.0); Immature Granulocyte Absolute 0.01 K/mm3 (0.00-0.031); Immature Granulocyte Percent A 0.3 % (0-0.5); Lymphocytes Percent Auto 13.3 % (18.3-44.2); Mean Corpuscular HGB Conc 32.5 g/dl (32-36); Mean Corpuscular Hemoglobin 31.8 pg (26-34); Mean Corpuscular Volume 97.9 fl (80-100); Mean Platelet Volume 10.3 fl (7.4-10.4); Monocytes Absolute Auto 0.2 K/mm3 (0.1-0.6); Monocytes Percent Auto 4.2 % (2.6-8.5); Neutrophils Absolute Auto 3.1 K/mm3 (1.3-6.7); Neutrophils Percent Auto 81.9 % (45.5-73.1); Platelet Count Result 123 k/mm3 (150-375); Red Blood Count 3.74 M/mm3 (4.6-6.20); Red Cell Distribution Width 14.5 % (11.5-14.5); White Blood Count 3.8 K/mm3 (4.5-10.0)
[2023-03-14 06:51] LABS: Alanine Aminotransferase 17 U/L (6-50); Albumin Level 3.7 g/dL (3.5-5.1); Alkaline Phosphatase 93 U/L (38-126); Anion Gap 8 mmol/L (8-16); Aspartate Amino Transferase 27 U/L (17-59); Bilirubin,Total 0.5 mg/dL (0.2-1.3); Blood Urea Nitrogen 30 mg/dL (9-20); Calcium 9.1 mg/dL (8.4-10.2); Carbon Dioxide 21 mmol/L (22-30); Chloride 108 mmol/L (98-107); Estimated Glomerular Filt Rate 54; Glucose 148 mg/dL (65-110); Sodium 137 mmol/L (137-145)
[2023-03-14] MEDS: IPRATROPIUM BR 0.02% INH SOLN 0.5 MG/2.5 ML VIAL INHALATION ×2 (07:23→12:56)
[2023-03-14] MEDS: ALBUTEROL SULFATE NEB 2.5 MG/3 ML INH INHALATION ×2 (07:23→12:56)
[2023-03-14] MEDS: ENOXAPARIN 40 MG/0.4 ML SYRINGE SUB-Q (09:33)
[2023-03-14] MEDS: predniSONE 20 MG TABLET 40 MG PO (09:33)
--- NOTE | 2023-03-14 11:18 | PM.IMPN ---
Progress Note: A&P Assessment and Plan (1) COPD (chronic obstructive pulmonary disease): Qualifiers: COPD type: unspecified COPD Qualified Code(s): J44.9 - Chronic obstructive pulmonary disease, unspecified Code(s): J44.9 - Chronic obstructive pulmonary disease, unspecified Status: Acute Assessment and Plan: likely exacerbation. CXR: no acute cardiopulmonary abnormality. has follow-up with pulm on 03/16. interested in smoking cessation - will start nicotine patch while hospitalized. continue nebs Atrovent/albuterol Q6H PRN. continue steroids as 40 mg PO of prednisone x6 days for total of 7. will start ceftriaxone, obtain sputum culture, and MRSA screen. reassess O2 sat tomorrow with ambulation. (2) Tobacco abuse: Code(s): Z72.0 - Tobacco use Status: Acute Assessment and Plan: interested in cessation. will start nicotine patch in interim. (3) DOMINIC (obstructive sleep apnea): Code(s): G47.33 - Obstructive sleep apnea (adult) (pediatric) Status: Acute Assessment and Plan: continue home CPAP. Plan Diet: heart healthy GI Prophylaxis: not indicated DVT Prophylaxis: SCDs, Lovenox Lines: pIV Code Status: Full Code Subjective Date/time seen: 03/14/23 11:18 Interval history: 77-year-old male with history of COPD, CKD, DOMINIC presenting with shortness of breath and being treated for RSV as well as COPD exacerbation. No overnight events noted. No chest pain. No nausea, vomiting or diarrhea. No fevers or chills. Review of Systems Review of Systems: 12 point review of systems was assessed and was negative except as noted in the HPI Exam Narrative: General: No acute distress, alert and oriented per baseline HEENT: Atraumatic, normocephalic, mucous membranes moist CV: Regular rate and rhythm, S1, S2 Lungs: Abdomen: Soft, nontender, nondistended Extremities: Normal to inspection Skin: No rashes noted, no lesions or wounds seen Psych: Euthymic, normal affect Objective Data Vital Signs Vital Signs: Vital Signs - 24 hr 03/13/23 11:36 03/13/23 11:30 03/13/23 11:31 Temperature Pulse Rate 100 93 88 Respiratory Rate 22 H 22 H 23 H Blood Pressure 146/79 H Pulse Oximetry 92 93 Oxygen Delivery Fraction of Inspired Oxygen 03/13/23 11:45 03/13/23 12:00 03/13/23 12:01 Temperature Pulse Rate 91 103 H 108 H Respiratory Rate 25 H 30 H 18 Blood Pressure 127/112 H Pulse Oximetry 93 90 97 Oxygen Delivery Fraction of Inspired Oxygen 03/13/23 12:15 03/13/23 12:16 03/13/23 12:30 Temperature Pulse Rate 109 H 113 H 105 H Respiratory Rate 25 H 23 H 24 H Blood Pressure 127/70 Pulse Oximetry 97 100 99 Oxygen Delivery Fraction of Inspired Oxygen 03/13/23 12:31 03/13/23 12:41 03/13/23 12:46 Temperature Pulse Rate 104 H 121 H 118 H Respiratory Rate 26 H 23 H 24 H Blood Pressure 115/52 L 118/60 Pulse Oximetry 99 95 Oxygen Delivery Fraction of Inspired Oxygen 03/13/23 13:01 03/13/23 13:16 03/13/23 13:31 Temperature Pulse Rate 107 H 107 H 105 H Respiratory Rate 23 H 18 25 H Blood Pressure 119/68 135/70 138/65 Pulse Oximetry 94 91 90 Oxygen Delivery Fraction of Inspired Oxygen 03/13/23 13:46 03/13/23 14:00 03/13/23 14:01 Temperature 98.0 F Pulse Rate 102 H 101 H 104 H Respiratory Rate 22 H 17 17 Blood Pressure 112/42 L 109/60 Pulse Oximetry 92 90 90 Oxygen Delivery Fraction of Inspired Oxygen 03/13/23 14:16 03/13/23 14:31 03/13/23 15:01 Temperature Pulse Rate 101 H 107 H 110 H Respiratory Rate 22 H 24 H 24 H Blood Pressure 125/72 125/63 127/74 Pulse Oximetry 91 95 95 Oxygen Delivery Fraction of Inspired Oxygen 03/13/23 15:16 03/13/23 15:39 03/13/23 15:31 Temperature Pulse Rate 105 H 93 100 Respiratory Rate 24 H 24 H 24 H Blood Pressure 122/54 L 130/64 130/64 Pulse Oximetry 94 97 94 Oxygen Delivery Fracti
--- NOTE | 2023-03-14 15:21 | PCCCNOTE ---
On 03/14/23, the student, [Irma Wilkinson], provided care and completed [facility] documentation on this patient. I have reviewed the student's documentation and agree with the findings.
--- NOTE | 2023-03-14 16:58 | PM.DS ---
DS: Admitting Diagnosis Discharge Date 03/14/23 Admitting Diagnosis sob DS: Discharge Diagnosis Discharge Diagnosis (1) COPD (chronic obstructive pulmonary disease): Qualifiers: COPD type: unspecified COPD Qualified Code(s): J44.9 - Chronic obstructive pulmonary disease, unspecified Code(s): J44.9 - Chronic obstructive pulmonary disease, unspecified Status: Acute (2) Tobacco abuse: Code(s): Z72.0 - Tobacco use Status: Acute (3) DOMINIC (obstructive sleep apnea): Code(s): G47.33 - Obstructive sleep apnea (adult) (pediatric) Status: Acute (4) Respiratory syncytial virus (RSV): Code(s): B33.8 - Other specified viral diseases Status: Acute DS: Summary Hospital Course Hospital Course: 77 y/o M presents here with SOB, productive cough, and chest pain with PMH of CKD, COPD, DVT, dyslipidemia, HTN, smoker, DOMINIC, and PVD. Patient thought to have a COPD exacerbation and also was positive for RSV. Flu and COVID negative. He was treated with steroids and nebulizer treatments and all symptoms improved. He is able to be weaned to room air easily without any symptoms. Please see above and med rec for details. Patient was discharged in stable condition with close outpatient follow-up Time Spent with Patient Time attestation: Total time spent providing and/or coordinating discharge services: Exam Narrative: General: No acute distress, alert and oriented per baseline HEENT: Atraumatic, normocephalic, mucous membranes moist CV: Regular rate and rhythm, S1, S2 Lungs: Clear to auscultation bilaterally, no rales or crackles noted, no wheezes, good air entry Abdomen: Soft, nontender, nondistended Extremities: Normal to inspection Skin: No rashes noted, no lesions or wounds seen Psych: Euthymic, normal affect DS: Data Data Completed and Pending Labs on day of discharge: Labs from last 24 hours 03/14/23 03/13/23 05:49 16:19 WBC 3.8 L RBC 3.74 L Hgb 11.9 L Hct 36.6 L MCV 97.9 MCH 31.8 MCHC 32.5 RDW 14.5 Plt Count 123 L MPV 10.3 Immature Gran % (Auto) 0.3 Neut % (Auto) 81.9 H Lymph % (Auto) 13.3 L [place] % (Auto) 4.2 Eos % (Auto) 0.0 Baso % (Auto) 0.3 Lymph # (Auto) 0.50 L [place] # (Auto) 0.2 Eos # (Auto) 0.0 Baso # (Auto) 0.0 Abs Immat Gran (auto) 0.01 Absolute Neuts (auto) 3.1 Absolute Nucleated RBC 0.0 Nucleated RBC % 0.0 Sodium 137 Potassium 4.0 Chloride 108 H Carbon Dioxide 21 L Anion Gap 8 BUN 30 H D Creatinine 1.30 Estim Creat Clear Calc Not Reportable Estimated GFR 54 L Glucose 148 H Calcium 9.1 Total Bilirubin 0.5 AST 27 ALT 17 Alkaline Phosphatase 93 Total Protein 7.0 Albumin 3.7 Influenza A (RT-PCR) Negative Influenza B (RT-PCR) Negative RSV (RT-PCR) Positive A SARS-CoV-2 RNA (RT-PCR) Negative Discharge Plan Discharge Attending physician on discharge: Nina Masterson Discharging Clinician: Nina Masterson Patient Disposition: Home, Self-Care Activity: as tolerated Diet: as tolerated Patient Instructions: Antibiotic Form Stand Alone Forms: General Discharge Information Follow-up/Referrals: Ezra Ngo MD [Primary Care Provider] - Discharge Medications: New prednisone 20 mg Tablet 40 mg PO DAILY@0800 5 Days Qty: 10 0RF Continued aspirin [Adult Low Dose Aspirin] 81 mg tablet,delayed release (DR/EC) 81 mg PO DAILY Qty: 90 0RF Tylenol Extra Strength 500 mg powder in packet 500 mg PO Q6H PRN (Reason: Pain (Scale Score 4-6)) albuterol sulfate [Ventolin HFA] 90 mcg/actuation HFA aerosol inhaler 1 - 2 inh INHALATION Q4-6H PRN (Reason: shortness of breath or wheezing) Qty: 8.5 2RF rosuvastatin 20 mg tablet 20 mg PO DAILY Qty: 90 1RF amlodipine 5 mg tablet 5 mg PO DAILY Qty: 90 1RF tamsulosin 0.4 mg capsule 0.4 mg PO DAILY Qty: 90 1RF losartan 100 mg tab
== END 2023-03-14 18:20 | disposition home or self-care (01) ==
LOC: ANHED 14:41 → ANH3MEDSUR 16:16
PROVIDERS: Student in an Organized Health Care Education/Training Program; Admitting Provider Student in an Organized Health Care Education/Training Program; Emergency Provider Emergency Medicine; PCP Family Medicine; Visit Provider Student in an Organized Health Care Education/Training Program
DX: J44.9 Chronic obstructive pulmonary disease, unspecified (principal); R09.02 Hypoxemia; B97.4 Respiratory syncytial virus as the cause of diseases classified elsewhere; I12.9 Hypertensive chronic kidney disease with stage 1 through stage 4 chronic kidney disease, or unspecified chronic kidney disease; N18.9 Chronic kidney disease, unspecified; R94.31 Abnormal electrocardiogram [ECG] [EKG]; I73.9 Peripheral vascular disease, unspecified; Z20.822 Contact with and (suspected) exposure to COVID-19; E78.5 Hyperlipidemia, unspecified; G47.33 Obstructive sleep apnea (adult) (pediatric); Z99.89 Dependence on other enabling machines and devices; F17.210 Nicotine dependence, cigarettes, uncomplicated; F12.90 Cannabis use, unspecified, uncomplicated; Z79.82 Long term (current) use of aspirin; Z79.1 Long term (current) use of non-steroidal anti-inflammatories (NSAID); Z79.2 Long term (current) use of antibiotics; Z79.51 Long term (current) use of inhaled steroids; Z86.16 Personal history of COVID-19; Z86.718 Personal history of other venous thrombosis and embolism; Z85.46 Personal history of malignant neoplasm of prostate
CPT/HCPCS: 36415; 71046; 80053; 83690; 84484; 85025; 85055; 85610; 85730; 87081; 87637; 93005; 94640; 96365; 96366; 96372; 96375; 96376; 99285; A9270; G0378; J0696; J1650; J2930; J7512

== ENCOUNTER 2023-04-26 07:43 | Outpatient (CLI) | payer MEDICARE, SELFPAY ==
--- NOTE | ~2023-04-26 | CT_ITS ---
CT Scan of the Chest without Contrast: Clinical Indication: Lung cancer screening, personal history of nicotine dependence Technique: Contiguous sections were acquired throughout the chest without intravenous contrast. Dose reduction technique was used on this scan by utilizing automated exposure control and iterative recon struction technique. The dose-length product (DLP) was 87.01 mGy-cm. COMPARISON: 03/29/2022 Findings: There is no evidence of any significant mediastinal, hilar or axillary lymphadenopathy. The mediastin al soft tissues appear normal. There is no evidence of pleural or pericardial effusion. There is moderate to advanced emphysema. No pulmonary nodule evident. Images through the upper abdomen reveal no abnormalities. Impression: Lung RADS 1: Negative. 12 month follow-up screening CT advised. Reviewed, dictated and finalized at location . CE OFFICER Impression: Lung RADS 1: Negative. 12 month follow-up screening CT advised.
--- NOTE | 2023-04-26 10:45 | PCRCNOTE ---
PT CAME IN FOR 6 MINUTE WALK. PT'S HEART RATE WAS 40. NOTIFIED JUS CASAREZ. ADVISED PT TO GO TO THE ER FOR EVALUATION
== END 2023-04-26 07:44 | disposition home or self-care (01) ==
LOC: ANHIMG 07:50
PROVIDERS: PCP Family Medicine; Visit Provider Physician Assistant
DX: Z12.2 Encounter for screening for malignant neoplasm of respiratory organs (principal); Z87.891 Personal history of nicotine dependence
CPT/HCPCS: 71271

== ENCOUNTER 2023-05-20 08:31 | Emergency (ER) | payer MEDICARE, SELFPAY ==
[2023-05-20 08:52] VITALS: BP 147/71; PULSE 90; RESP 16; TEMP 36.5; O2SAT 96
--- NOTE | 2023-05-20 09:02 | ED.EXTPRO ---
HPI - Extremity Problem General Chief complaint: Extremity Problem,Nontraumatic Stated complaint: BUMP ON L WRIST Time Seen by Provider: 05/20/23 08:58 Source: patient Mode of arrival: ambulatory Limitations: no limitations History of Present Illness HPI Narrative: Reji is a 77-year-old male patient presenting to the clinic today with complaints of a bump to his left wrist. He reports that this bump is causing some pins and needles sensation to his wrist. States that this just come on all of a sudden over the last 1-2 days. Related Data Home Medications Medication Instructions Recorded Confirmed acetaminophen 500 mg oral powder 500 mg PO Q6H PRN Pain (Scale 04/11/22 05/20/23 packet (Tylenol Extra Strength) Score 4-6) Allergies Allergy/AdvReac Type Severity Reaction Status Date / Time No Known Allergies Allergy Verified 05/20/23 08:48 Review of Systems Review of Systems: Pertinent positives per HPI. Patient denies any fever, chills, rash, headache, visual changes, dizziness, cough, runny nose, sore throat, shortness of breath, chest pain, palpitations, nausea, vomiting, diarrhea, constipation, abdominal pain, or any urinary issues. [facility] Past Medical History Medical History Brain aneurysm CKD (chronic kidney disease) COPD (chronic obstructive pulmonary disease) COVID-14 Apr 2021. Received infusion therapy 04/22 DVT of lower extremity, bilateral Dyslipidemia Early satiety Essential hypertension Hematochezia Hypertension Marijuana use Nicotine dependence Obesity (BMI 30.0-34.9) DOMINIC (obstructive sleep apnea) PVD (peripheral vascular disease) SOB (shortness of breath) Tobacco abuse Surgical History Surgical History Cataract Family History Family History Sibling Acute myocardial infarction Other Family history of malignant neoplasm Social History Social History Smoking packs per day: 1 Smoking cigarettes per day: 20.0 Years smoked: 61 Smoking pack-years: 61.00 Smoking status: Current some day smoker Tobacco type: cigarettes Second hand tobacco smoke exposure: No Alcohol intake: never Substance use: former Substance use type: marijuana Other substance usage details: rare marijuana use Last use: 12/2022 Do You Feel Safe in your Home?: Yes Lack of Transportation: No Lack of Food: Never True Current Housing: I Have Housing Concerned About Future Housing: No Difficulty Paying Gas/Electric Bills: No Difficulty Paying for Meds: No Currently Unemployed: No Education: Grade School Difficulty w/ Childcare or Family Care: No Living arrangements: with family Gender identity (if verbalized by the patient): Male Spiritual care concerns: No Comments At the time of my signature, I reviewed and agree with the nursing past medical, surgical, social, and family history. There is no relevant family history pertinent to the patient complaint. Exam Narrative: General: Well-developed, well nourished, in no apparent distress Head: Normocephalic, atraumatic. Cardio: Regular rate and rhythm, s1 and s2 normal, no murmur appreciated. Resp: Clear to auscultation bilaterally, no rhonchi, rales, wheezing or rubs. Musculoskeletal: No deformity, tender to palpation over a fluctuant cyst to the right distal radius, area approximately the size of a nickel, grossly normal range of motion, muscle strength strong and equal, peripheral pulse strong, no edema, no cyanosis, normal gait and station Course Course Emergency Course: Portions of this record may have been created with voice recognition software. Level of Care: Express Care Visit Vital Signs Vital signs: Vital Signs Temperature 36.5 C 05/20/23 08:52 Pulse
== END 2023-05-20 09:09 | disposition home or self-care (01) ==
PROVIDERS: Emergency Provider Nurse Practitioner Family; PCP Family Medicine
DX: L72.9 Follicular cyst of the skin and subcutaneous tissue, unspecified (principal); F17.210 Nicotine dependence, cigarettes, uncomplicated; I12.9 Hypertensive chronic kidney disease with stage 1 through stage 4 chronic kidney disease, or unspecified chronic kidney disease; N18.9 Chronic kidney disease, unspecified; J44.9 Chronic obstructive pulmonary disease, unspecified; Z86.718 Personal history of other venous thrombosis and embolism; E78.5 Hyperlipidemia, unspecified; E66.9 Obesity, unspecified; Z68.29 Body mass index [BMI] 29.0-29.9, adult; I73.9 Peripheral vascular disease, unspecified; Z86.16 Personal history of COVID-19
CPT/HCPCS: 99211; G0463

== ENCOUNTER 2023-07-08 09:13 | Outpatient (CLI) | payer MEDICARE, SELFPAY ==
--- NOTE | ~2023-07-08 | US_ITS ---
EXAMINATION: US soft tissue UE LT DATE: 07/08/2023 09:39 INDICATION: Volar left wrist mass of the base of the thumb. TECHNIQUE: Multiple grayscale and Doppler ultrasound images of the left upper limb were obtained. COMPARISON: None FINDINGS: In the patient's area of concern, there is a 1.2 x 1.6 x 0.7 cm subcutaneous mixed cystic a nd solid mass. IMPRESSION: 1. Subcutaneous 1.6 cm solid and cystic mass in the patient's area of concern. The differential diagn osis includes hematoma, abscess, and less likely neoplasm. Reviewed, dictated and finalized at location E. IMPRESSION: 1. Subcutaneous 1.6 cm solid and cystic mass in the patient's area of concern. The differential diagnosis includes hematoma, abscess, and less likely neoplasm .
== END 2023-07-08 09:14 ==
LOC: MICIMG 09:14
PROVIDERS: PCP Nurse Practitioner Family; Visit Provider Plastic Surgery
DX: R22.32 Localized swelling, mass and lump, left upper limb (principal)
CPT/HCPCS: 76882

== ENCOUNTER 2023-07-08 09:14 | Outpatient (CLI) | payer MEDICARE, SELFPAY ==
--- NOTE | ~2023-07-08 | US_ITS ---
EXAMINATION: US renal BI DATE: 07/08/2023 09:40 INDICATION: Stage IIIB chronic kidney disease TECHNIQUE: Multiple ultrasound grayscale images of the kidneys were obtained. COMPARISON: None. FINDINGS: The right kidney measures 10.0 x 5.3 x 5.6 cm. The left kidney measures 10.5 x 5.5 x 5.5 cm. The kidn eys demonstrate normal echogenicity. There are few bilateral anechoic renal cysts, the largest on the right measuring 1.9 cm in maximal diameter and with exophytic cysts at the lower pole of the left ki dney measuring up to 6.0 cm and 2.3 cm. There is no hydronephrosis in either kidney. No stones ident ified. The bladder is normal. IMPRESSION: 1. Simple appearing bilateral renal cysts measuring up to 6.0 cm on the left. No hydronephrosis. Reviewed, dictated and finalized at location A.
== END 2023-07-08 09:15 ==
LOC: MICIMG 09:14
PROVIDERS: PCP Nurse Practitioner Family; Visit Provider Internal Medicine Nephrology
DX: N18.32 Chronic kidney disease, stage 3b (principal); N28.1 Cyst of kidney, acquired
CPT/HCPCS: 76775

== ENCOUNTER 2023-10-28 07:48 | Outpatient (CLI) | payer MEDICARE, SELFPAY ==
--- NOTE | ~2023-10-28 | XR_ITS ---
XR chest 2V DATE: 10/28/2023 08:16 INDICATION: Dyspnea TECHNIQUE: PA and lateral views COMPARISON: 04/26/2023 CT lung screening 03/13/2023 2 view chest FINDINGS: Mild cardiomegaly. There is thoracic aortic tortuosity. No hilar or mediastinal enlargement. Moderate bilateral hyperinflation consistent with COPD. No pulmonary infiltrate or consolidation, pleural effusion or pulmonary vascular congestion or pneumo thorax is detected. Diffuse osteopenia. Mild thoracic dextro scoliosis. Prominent degenerative change of the thoracic spine including multile lauren degenerative disc disease. There is approximately 2.2 mm anterolisthesis at approximately T10-11, stable since 03/13/2023. IMPRESSION: COPD No active disease Reviewed, dictated and finalized at location J. IMPRESSION: COPD No active disease
[2023-10-28 09:18] LABS: Iron 82 ug/dL (49-181)
[2023-10-28 09:23] LABS: Anion Gap 6 mmol/L (4-12); Blood Urea Nitrogen 24 mg/dL (9-20); Calcium 9.1 mg/dL (8.4-10.2); Carbon Dioxide 29 mmol/L (22-30); Chloride 105 mmol/L (98-107); Estimated Glomerular Filt Rate 45; Glucose 101 mg/dL (65-110); Potassium 3.7 mmol/L (3.4-5.0); Sodium 140 mmol/L (137-145)
[2023-10-28 09:23] LABS: Add Urine Microscopic? YES; Appearance Urine Cloudy (Clear); Bacteria Urine None Seen /hpf; Bilirubin Urine Negative (Negative); Blood Urine Negative (Negative); Color Urine Yellow (Yellow); Glucose Urine UA Negative (Negative); Ketones Urine Negative (Negative); Leukocyte Esterase Ur Negative LEU/UL (Negative); Nitrate Urine Negative (Negative); Non Pathogenic Casts 0-2; Protein Urine 2+ mg/dL (Negative); RBC Urine 0-2 /hpf (0-2); Specific Grav Ur 1.021 (1.001-1.035); Squamous Epithelial Cell Urine None Seen /hpf (Few); WBC Urine 0-5 /hpf (0-3)
[2023-10-28 09:28] LABS: Percent Iron Saturation 30 % (20-50)
== END 2023-10-28 07:49 | disposition home or self-care (01) ==
LOC: ANHIMG 08:00
PROVIDERS: PCP Nurse Practitioner Family; Referring Provider Internal Medicine Nephrology; Visit Provider Nurse Practitioner Family
DX: R06.09 Other forms of dyspnea (principal); R53.83 Other fatigue; N18.32 Chronic kidney disease, stage 3b
CPT/HCPCS: 36415; 71046; 80048; 81001; 82607; 83540; 83550

== ENCOUNTER 2023-12-28 09:48 | Outpatient (CLI) | payer MEDICARE, SELFPAY ==
--- NOTE | ~2023-12-28 | MR_ITS ---
MRI of the brain Clinical History: Dementia Technique: Axial and sagittal T1-weighted images were acquired. These were followed by axial T2-weigh kleber, diffusion weighted, gradient, and FLAIR images. Following intravenous administration of 13 cc Mu ltiHance gadolinium, T1-weighted fat-sat imaging was performed in the axial and coronal planes. COMPARISON: 12/10/2020 Findings: There is no acute infarct, intracranial hemorrhage or mass lesion. Chronic left temporal lo be infarct present. There is moderate chronic microvascular ischemic change in the periventricular wh ite matter bilaterally. Ventricles and subarachnoid spaces are mildly dilated. Orbits are unremarkable. Paranasal sinuses and mastoid air cells are clear. Major intracranial flow voids are intact. Sagittal midline structures are intact. No abnormal postcontrast enhancement identified. IMPRESSION: No acute abnormality. Chronic left temporal lobe infarct and moderate chronic microvascular ischemic changes. Reviewed, dictated and finalized at [facility].
== END 2023-12-28 09:49 | disposition home or self-care (01) ==
PROVIDERS: PCP Nurse Practitioner Family; Visit Provider Nurse Practitioner Family
DX: F03.90 Unspecified dementia, unspecified severity, without behavioral disturbance, psychotic disturbance, mood disturbance, and anxiety (principal); I67.82 Cerebral ischemia; I10 Essential (primary) hypertension; I67.1 Cerebral aneurysm, nonruptured; I73.9 Peripheral vascular disease, unspecified; H81.09 Meniere's disease, unspecified ear; H81.10 Benign paroxysmal vertigo, unspecified ear; Z86.73 Personal history of transient ischemic attack (TIA), and cerebral infarction without residual deficits
CPT/HCPCS: 70553; A9577

== ENCOUNTER 2024-05-20 17:32 | Outpatient (CLI) | payer MEDICARE, SELFPAY ==
--- NOTE | ~2024-05-20 | XR_ITS ---
EXAMINATION: XR chest 2V Exam Date/Time: 05/20/2024 17:40 MANAGER LAUNDRY HISTORY: R05.9 - Cough, unspecified Comparison: 11/24/2023. RESULT: Lines, tubes, and devices: None. Lungs and pleura: Hemidiaphragm flattening as can be seen with emphysema. No focal consolidation, pl eural effusion, or pneumothorax. Cardiomediastinal silhouette: Stable. Other: No acute osseous or upper abdominal finding. IMPRESSION: No acute cardiopulmonary process. Reviewed, dictated and finalized at location K. [facility]ER LAUNDRY
--- OUTSIDE RECORDS SUMMARY | 2024-05-20 18:57 | XMS_ITS | CONTINUITY OF CARE DOCUMENT ---
Author Name smita marielleeunice Address Unknown Organization [facility] Address [address] [place] [address] [address] [place] [address] Phone [phone] Care Team Providers Care Engine Inspector Name Role Phone Milena BORJAS, Derick Unavailable [phone] Avelino Dunlap MD Unavailable Avelino Dunlap MD Unavailable PROBLEMS Condition Status Date Provider Notes Chest pain active Derick Abbott MD Sinus bradycardia active Derick Abbott MD HTN essential active Derick Abbott MD COPD active Derick Abbott MD PVD with claudication active Derick Abbott MD DVT active Derick Abbott MD Sleep apnea active Derick Abbott MD Prostate cancer active Derick Abbott MD C O P D active ? Derick Abbott MD Hyperlipidemia active ? Derick Abbott MD Hypertension active ? Derick Abbott MD Peripheral Vascular Disease active ? Derick clements MD ENCOUNTERS Date Type Provider Location Encounter Diag nosis - In-person encounter Office Visit Derick Abbott MD [facility] C O P DHyperlipidemiaHypertensionPeripheral Vascular Disease - In-person encounter Office Visit Derick Abbott MD [facility] Chest painSinus bradycardiaHTN essentialCOPDPVD with claudicationDVTSleep apneaProstate cancer VITAL SIGNS Date Observation Value Provider Body Mass Index (Ratio) 30.07 kg/m2 Michael Abbott MD blood pressure, cuff size large Ke terei Marcelolorpallavi blood pressure, diastolic 76 mm[Hg] Ke rri Adamsam blood pressure, systolic 130 mm[Hg] Jc mirza Jossie oxygen saturation, oximetry 97 % Terri Jossie respiratory rate E&M 20 /min Terri G charissa pulse rate 65 /min Terri Jossie greyer weight E&M 154 [lb_av] Terri Jossie lder height E&M 60 [in_i] Terri Adamgarrett er Body Mass Index (Ratio) 29.88 kg/m2 Michael Abbott MD blood pressure, cuff size regular Cy nanifermín Eric blood pressure, diastolic 70 mm[Hg] Cy latonia Reyes blood pressure, systolic 140 mm[Hg] Lisandra deanafermín Reyes oxygen saturation, oximetry 94 % Sandra Reyes respiratory rate E&M 16 /min Sandra Reyes pulse rate 72 /min Sandra Karimi l height E&M 60 [in_i] Sandra Karimi l weight E&M 153 [lb_av] Sandra Campbel l ALLERGIES No Known Drug Allergies HISTORY OF MEDICATION USE Medication Status Instructions Dates Provider Indications Com ments IPRATROPIUM-ALB UTEROL SOLUTION active 0.083% one time a day if needed Terri Sethi BROVANA 15 MCG/2ML INHALATION NEBULIZATION SOLUTION active twice a day Terri Sethi BUDESONIDE 0.5 MG/2ML INHALATION SUSPENSION active one vial twice a day Terri Sethi METOPROLOL SUCCINATE ER 100 MG ORAL TABLET EXTENDED RELEASE 24 HOUR active 1/2 tab daily Derick Ramadan MD ANORO ELLIPTA 62.5-25 MCG/INH INHALATION AEROSOL POWDER BREATH ACTIVATED completed Take once a day - Terri Sethi VENTOLIN HFA AEROSOL SOLUTION active TAke 1 puff daily as needed Sandra Reyes AMLODIPINE BESYLATE 5 MG ORAL TABLET active Take 1 tablet daily Sandra Reyes OLMESARTAN MEDOXOMIL-HCTZ 40-25 MG ORAL TABLET active Take 1 tablet in evening daily Sandra Reyes SOCIAL HISTORY Date Observation Value Provider smoking/tobacco cess ation, patient education and counseling yes Derick Abbott MD social history E&M Marital Statu s: Thad ludwig: 1 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 Derick Abbott MD smoking, year quit 2018 Sandra hale smoking history, tot al pack/day 1 PPD Sandra Reyse cigarette use yes Sandra guidry smoking status Former smoker Sandra valdez FAMILY HISTORY Family Member Condition Full Brother Family History of Co ronary Artery Disease: INSURANCE PROVIDERS Payer name Policy type / Coverage type Cat red republican ID [employer] MEDICARE Medicare [id number] ADVANCE DIRECTIVES Name Date DISCUSSED - NO DECISION MADE TREATMENT PLAN Date Name Performer Cardiology Follow u p Derick santana MD Cardiology Follow u p:The patient is using CPAP on a regular basis. The patient has been benefiting from therapy and should continue use. Derick Abbott MD Cardiology Follow u p Derick santana MD Cardiology Follow u p Derick santana MD Cardiology Follow u p Derick santana MD Cardiology Follow u p Derick santana MD Cardiology Follow u p Derick santana MD Cardiology New patient :For seed ing in September Derick Abbott MD Cardiology New patie nt :The patient is using CPAP on a regular basis. The patient has been benefiting from therapy and should continue use. Derick Abbott MD Cardiology New patient Derick schaefer MD Cardiology New patient Derick schaefer MD Cardiology New patient Derick schaefer MD Cardiology New patient Derick schaefer MD Cardiology New patient Derick schaefer MD Cardiology New patient :Decrease metoprolol Derick Abbott MD Date Name Venous Doppler Bilat eral LE Arterial Duplex Bi-L ower EX Complete Echo STR - Adenosine Mobile Cardiac Tele HISTORY OF PROCEDURES Procedure Date Procedure Name Provider Procedure Notes S tatus Regadenoson, 4 units Derick Abbott MD completed Cardiolite, 2 units Derick Abbott MD completed SPECT Images Jacinto Mosqueda MD compl eted Stress EKG Jacinto Mosqueda MD complet ed Mobile Cardiac Telem etry - Tech Derick Abbott MD completed Mobile Cardiac Telem etry - Prof Derick Abbott MD completed JASBIR Abbott MD complete d
--- OUTSIDE RECORDS SUMMARY | 2024-05-20 18:57 | XMS_ITS | Encounter Summary ---
Author Organization [facility] Healthcare Address [address] [place] [address] Care Team Providers Care Toys Inspector Name Role Phone Avelino Dunlap MD Primary Care Provider [phone] Vikram Regalado MD Primary Care Provider [phone] Vikram Regalado MD Unavailable Naveen Wilcox MD Unavailable Meet Fulton MD Unavailable [phone] Naveen Wilcox MD Unavailable Encounter Details Date Type Department Care Team (Late st Contact Info) Description 12/20/2018 Telephone [facility] Radiation Oncology [address] [facility] [place] [address] Jaswinder Benavides BS Social History Tobacco Use Types Packs/Day Years Used Date Smoking Tobacco: Every Day Cigarettes 1 59 Alcohol Use Standard Drinks/Week Comments Yes 0 (1 standard drink = 0.6 oz pure alcohol) drinks a few drinks every couple months Sex and Gender Information Value Date Recorded Sex Assigned at Not on file Legal Sex Male 8:10 AM CDT Gender Identity Not on file Sexual Orientation Not on file documented as of this encounter Plan of Treatment Not on file documented as of this encounter Visit Diagnoses Not on filedocumented in this encounter Care Teams Toys Inspector Relationship Specialty Start Date End Date Avelino Dunlap MD PCP - General 08/09/17 04/05/20 Vikram Regalado MD [address] [place] [address] PCP - General Internal Medicine 04/06/20 Vikram Regalado MD [address] [place] [address] 04/06/20 Naveen Wilcox MD [address] [place] [address] Referring Physician Urology 10/21/17 Meet Fulton MD [address] [facility] [id number] [place] [address] Radiation Oncologist Radiation Oncology 11/13/17 Naveen Wilcox MD [address] [place] [address] Referring Physician Urology 11/13/17 documented as of this encounter
--- OUTSIDE RECORDS SUMMARY | 2024-05-20 18:57 | XMS_ITS | Clinical Summary ---
Author Organization [facility] Address [address] [place] [phone] Phone Care Team Providers Care Interior Assemblies Installer Name Role Phone Vikram Regalado MD Primary Care Provider [phone] Allergies Active Allergy Reactions Criticality Noted Date Comments Amlodipine Edema 01/23/2020 Diclofenac 01/23/2020 Hydrocodone 01/23/2020 Medications Medication Sig Dispensed Refills Start Date End Date Status Acetaminophen 500 MG capsule Take 1,000 mg by mouth every 6 hours 08/06/2018 Active albuterol HFA (PROVENTIL HFA) 108 (90 Base) MCG/ACT inhaler albuterol sulfate HFA 90 mcg/actuation aerosol inhaler Active Fluticasone-Umeclidi n-Vilant 100-62.5-25 MCG/INH aerosol powder Trelegy Ellipta 100 mcg-62.5 mcg-25 mcg powder for inhalation Active hydroCHLOROthiazide (HYDRODIURIL) 25 MG tablet 01/22/2020 Active losartan (COZAAR) 100 MG tablet 01/22/2020 Active metoprolol succinate XL (TOPROL-XL) 50 MG 24 hr tablet TK 1 T PO QD 12/13/2019 Active tamsulosin (FLOMAX) 0.4 MG 24 hr capsule 01/06/2020 Acti ve zolpidem (AMBIEN) 5 MG tablet Take 5 mg by mouth 1 (one) time each day 05/07/2020 Active rosuvastatin (CRESTOR) 10 MG tablet Take 10 mg by mouth 1 (one) time each day 06/01/2020 Active Active Problems Problem Noted Date Diagnosed Date H/O: Deep vein thrombosis 07/23/2018 Sleep apnea 07/23/2018 Chronic obstructive pulmonary disease 10/23/2017 Overview (01/23/2020): Last Assessment & Plan: Will continue home medications: Brovana 15, Budesomide .5/2 BID, ipratropium .5 daily. Patient also wears CPAP overnight at home Will continue to monitor. No signs of acute exacerbation Acute injury of kidney 10/23/2017 Overview (06/05/2020): Last Assessment & Plan: CR 1.79 today. Previously was 1.4. Will try to confirm baseline. Most likely prerenal. 2L bolus given in ED. Maintenance fluids ordered Will recheck BMP in AM Malignant neoplasm of prostate 10/21/2017 Overview (01/23/2020): Last Assessment & Plan: Patient underwent marker placement for planned brachytherapy 10/23 Patient was given ciprofloxacin 250mg for surgical prophylaxis. 5 doses remaining Memory impairment 05/12/2017 Raised prostate specific antigen 05/12/2017 Essential hypertension 06/15/2016 Immunizations Name Administration Dates Next Due Influenza TIV (IM) 06/10/2020(Deferred: Patient Refused) Pneumococcal Conjugate 06/10/2020(Deferred: Tia ent Refused) Social History Tobacco Use Types Packs/Day Years Used Date Smoking Tobacco: Heavy Smoker Smokeless Tobacco: Never Alcohol Use Standard Drinks/Week Comments Not Currently 0 (1 standard drink = 0.6 oz pur e alcohol) Sex and Gender Information Value Date Recorded Sex Assigned at Not on file Gender Identity Not on file Sexual Orientation Not on file Last Filed Vital Signs Vital Sign Reading Time Taken Comments Blood Pressure 122/80 06/10/2020 10:04 AM CDT Pulse 60 06/10/2020 10:04 AM CDT Temperature 34.9 C (94.8 F) 06/10/2020 10:04 AM CDT Respiratory Rate - - Oxygen Saturation - - Inhaled Oxygen Concentration - - Weight 68.5 kg (151 lb) 06/10/2020 10:04 AM CDT Height 152.4 cm (5') 06/10/2020 10:04 AM CDT Body Mass Index 29.49 06/10/2020 10:04 AM CDT Plan of Treatment Health Maintenance Due Date Last Done Comments Pneumococcal PPSV23/PCV13 65 + Years / Low and Medium Risk (1 of 4 - PCV) 2010 Influenza Vaccine (#1) 2023 Care Teams Interior Assemblies Installer Relationship Specialty Start Date End Date Vikram Regalado MD [address] [place] [id number] PCP - General Family Medicine 06/10/20
--- OUTSIDE RECORDS SUMMARY | 2024-05-20 18:57 | XMS_ITS | Encounter Summary ---
Author Organization [facility] Healthcare Address [address] [place] [address] Care Team Providers Care Clinical Care Coordinator Name Role Phone Avelino Dunlap MD Primary Care Provider [phone] Vikram Regalado MD Primary Care Provider [phone] Vikram Regalado MD Unavailable Naveen Wilcox MD Unavailable Meet Fulton MD Unavailable [phone] Naveen Wilcox MD Unavailable Encounter Details Date Type Department Care Team (Late st Contact Info) Description 11/13/2017 Documentation [facility] Radiation Oncology [address] [facility] [place] [address] Carlene Metzger Social History Tobacco Use Types Packs/Day Years Used Date Smoking Tobacco: Every Day Cigarettes 1 59 Alcohol Use Standard Drinks/Week Comments No 0 (1 standard drink = 0.6 oz [...] on filedocumented in this encounter Care Teams Clinical Care Coordinator Relationship Specialty Start Date End Date Avelino Dunlap MD PCP - General 08/09/17 04/05/20 Vikram Regalado MD [address] [place] [address] PCP - General Internal Medicine 04/06/20 Vikram Regalado MD [address] [place] [address] 04/06/20 Naveen Wilcox MD [address] [place] [address] Referring Physician Urology 10/21/17 Meet Fulton MD [address] [facility] [id number] [place] [address] Radiation Oncologist Radiation Oncology 11/13/17 Naveen Wilcox MD [address] [place] [address] Referring Physician Urology 11/13/17 documented as of this encounter
--- OUTSIDE RECORDS SUMMARY | 2024-05-20 18:57 | XMS_ITS | Referral Summary ---
Author Organization [facility] Address [address] [place] [address] Care Team Providers Care Piling Setter Name Role Phone Vikram Regalado MD Primary Care Provider [phone] Vikram Regalado MD Unavailable Naveen Wilcox MD Unavailable Meet Fulton MD Unavailable [phone] Naveen Wilcox MD Unavailable Allergies No known active allergies Medications acetaminophen 500 mg capsule Take 2 capsules (1,000 mg total) by mouth every 6 (six) hours 30 tablet 9 Active losartan (COZAAR) 100 mg tablet losartan 100 mg tablet Active fluticasone-umec lidin-vilanter (TRELEGY ELLIPTA) 100-62.5-25 mcg inhaler Trelegy Ellipta 100 mcg-62.5 mcg-25 mcg powder for inhalation Active albuterol HFA (PROVENTIL HFA,VENTOLIN HFA,PROAIR HFA) 90 mcg/actuation inhaler albuterol sulfate HFA 90 mcg/actuation aerosol inhaler Active rosuvastatin (CRESTOR) 5 mg tablet Take 5 mg by mouth daily 1 Active tamsulosin (FLOMAX) 0.4 mg extended release capsuleIndicatio ns:benign prostatic hyperplasia with lower urinary tract sx Take 1 capsule (0.4 mg total) by mouth daily 90 capsule 3 05/03/202 1 Active amLODIPine (NORVASC) 2.5 mg tablet Take 5 mg by mouth daily Active Active Problems Problem Noted Date Diagnosed Date Hyperlipidemia 03/16/2021 Cerebral aneurysm, nonruptured 09/16/2020 Primary osteoarthritis of both ankles 08/25/2020 History of arthroplasty of left hip 04/20/2020 Pain due to total hip replacement (CMS/HCC) 03/28 Peripheral vascular disease, unspecified 021 Assessment & Plan (04/08/2020 10:53 AM MOTION PICTURE SET UP WORKER): Patient has a history of peripheral vascular disease and underwent bilateral femoral popliteal bypass graft. Both of these are widely patent along with no symptoms of claudication or rest pain. I will have him follow up in 1 year with repeat imaging for his bypasses. If he develops any symptoms of claudication or rest pain in the meantime I told him to call. 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 Spoke with his PCP about this who will order a CT scan and refer him to General surgery. Primary localized osteoarthritis of pelvic regio n and thigh 12/24/2018 Acute traumatic pain 08/05/2018 Fall 08/04/2018 Intertrochanteric fracture of right femur 2018 History of deep vein thrombosis 07/23/2018 Ex-smoker 07/23/2018 Intracranial aneurysm 07/23/2018 Sleep apnea 07/23/2018 Personal history of other venous thrombosis and embolism 07/23/2018 Hypotension due to drugs 10/23/2017 Assessment & Plan (10/23/2017 11:43 AM CDT): Patient received 1mg ativan after outpatient brachytherapy for prostate cancer staging and BP dropped to 60 sys with HR in 40s Patient received 2L in ED with BP response to 110 sys Will continue maintenance fluids on floor NS@75ml/hr JAYLON (acute kidney injury) 10/23/2017 Assessment & Plan (10/23/2017 11:48 AM CDT): CR 1.79 today. Previously was 1.4. Will try to confirm baseline. Most likely prerenal. 2L bolus given in ED. Maintenance fluids ordered Will recheck BMP in AM COPD (chronic obstructive pulmonary disease) Assessment & Plan (04/08/2020 10:54 AM MOTION PICTURE SET UP WORKER): Followed by his PCP. Patient does also have a chronic cough. I discussed with him that he needs to quit smoking as this would be the best thing for his lungs as well as his peripheral vascular disease Assessment & Plan (10/23/2017 12:39 PM CDT): Will continue home medications: Brovana 15, Budesomide .5/2 BID, ipratropium .5 daily. Patient also wears CPAP overnight at home Will continue to monitor. No signs of acute exacerbation Prostate cancer 10/21/2017 Cancer Staging:Clinical stage from 06/06/2017:Stage IIB(cT1c, cN0, cM0, PSA: 8.6, Grade Group: 2) - Signed by Maria Esther Carlin MD on 10/21/2017 Assessment & Plan (10/24/2017 11:33 AM CDT): Patient underwent marker placement for planned brachytherapy 10/23 Patient was given ciprofloxacin 250mg for surgical prophylaxis. 5 doses remaining Chest pain 09/19/2017 Deep vein thrombosis (DVT) (CMS/HCC) 09/19/2017 Sinus bradycardia 09/19/2017 Confusion 06/27/2017 Cough 06/27/2017 Weight loss 06/27/2017 Memory impairment 05/12/2017 Serum creatinine raised 05/12/2017 Essential hypertension 06/15/2016 Assessment & Plan (04/08/2020 10:54 AM MOTION PICTURE SET UP WORKER): Followed by his PCP and on medications. Well adult health check 06/15/2016 Social History Tobacco Use Types Packs/Day Years Used Date Smoking Tobacco: Every Day Cigarettes 1 59 Smokeless Tobacco: Never Tobacco Cessation:Ready to Q uit: No; Counseling Given: No Alcohol Use Standard Drinks/Week Comments Yes 0 (1 standard drink = 0.6 oz pure alcohol) drinks a few drinks every couple months Sex and Gender Information Value Date Recorded Sex Assigned at Not on file Legal Sex Male 8:10 AM CDT Gender Identity Not on file Sexual Orientation Not on file Last Filed Vital Signs Vital Sign Reading Time Taken Comments Blood Pressure 147/70 07/22/2021 1:03 PM CDT Pulse 73 07/22/2021 1:03 PM CDT Temperature 36.1 C (97 F) 12/30/2020 11:05 AM CDT Respiratory Rate 17 12/30/2020 12:05 PM CDT Oxygen Saturation 92% 12/30/2020 12:05 PM CDT Inhaled Oxygen Concentration - - Weight 70.9 kg (156 lb 6.4 oz) 07/22/2021 1:03 P M CDT Height 149.9 cm (4' 11 ) 07/22/2021 1:03 PM CDT Body Mass Index 31.59 07/22/2021 1:03 PM CDT Plan of Treatment Not on file Medical Devices Implanted Type Area Anime Designer Device Identifier Shelf Expiration Date Model / Serial / Lot Other - See Comments-08/02/2000 Implanted: 001 (Quantity not on file) Other - see comments Brain Rebecca Neurovascular Description:Rebecca Coil [employer]/Richco/Ort ho [id number] Intertan 10mm 20cm Trochanter 130d Short Nail Intramedullary - [id number] Implanted:Qty: 1 on 08/04/2018 by Mikaela Alvarenga MD at [facility] Right: Hip [employer]hew/Richco/O rtho [id number] / / [employer]kinson [employer]hew/Richco/Ort ho [id number] Intertan 4.5mm 100mm 95mm Lag Compression Integrated Interlocking - [id number] Implanted:Qty: 1 on 08/04/2018 by Mikaela Alvarenga MD at [facility] Right: Hip [employer]hew/Richco/O rtho [id number] / / Wilkinson [employer]hew/Richco/Ort ho [id number] 5mm 32.5mm Low Profile Internal Hex Femur Screw Bone Trigen - [id number] Implanted:Qty: 1 on 08/04/2018 by Mikaela Alvarenga MD at [facility] Right: Hip Wil[employer]hew/Richco/O rtho [id number] / / Insurance HUMANA CHOICE MEDICARE PPO HUMANA CHOICE MEDICARE PPO COMMERCIAL GENERIC HUMANA CHOICE MEDICARE PPO WORKERS COMPENSATION GENERIC Advance Directives For more information, please contact: [phone] * Full Code (Latest Code Status on File) Date Activated Date Inactivated Comments 08/04/2018 2:47 PM 08/07/2018 9:21 PM * Full Code Date Activated Date Inactivated Comments 10/23/2017 12:21 PM 10/24/2017 3:38 PM Care Teams Piling Setter Relationship Specialty Start Date End Date Vikram Regalado MD [address] [place] [address] PCP - General Internal Medicine 04/06/20 Vikram Regalado MD [address] [place] [address] 04/06/20 Naveen Wilcox MD [address] [place] [address] Referring Physician Urology 10/21/17 Meet Fulton MD [address] [facility] [address] [place] [address] Radiation Oncologist Radiation Oncology 11/13/17 Naveen Wilcox MD [address] [place] [address] Referring Physician Urology 11/13/17
--- OUTSIDE RECORDS SUMMARY | 2024-05-20 18:57 | XMS_ITS | Encounter Summary ---
Author Organization [facility] Healthcare Address [address] [place] [address] Care Team Providers Care Forest Fire Specialist Supervisor Name Role Phone Avelino Dunlap MD Primary Care Provider [phone] Vikram Regalado MD Primary Care Provider [phone] Vikram Regalado MD Unavailable Naveen Wilcox MD Unavailable Meet Fulton MD Unavailable [phone] Naveen Wilcox MD Unavailable Encounter Details Date Type Department Care Team (Late st Contact Info) Description 04/15/2019 Orders Only [facility] Advanced Medicine Radiation Oncology [address] [facility] [place] [address] Zain Berman MA Prostate cancer (CMS/HCC) (Primary Dx) Social History Tobacco Use Types Packs/Day Years [...] as of this encounter Plan of Treatment Scheduled Orders Name Type Priority Associated Diagnoses Orde r Schedule PSA, total and free Lab Routine Prostate cancer (CMS/HCC) 1 Occurrences starting 04/15/2019 until 04/15/2020 documented as of this encounter Visit Diagnoses Diagnosis Prostate cancer (HCC)- Primary Malignant neoplasm of prostate documented in this encounter Care Teams Forest Fire Specialist Supervisor Relationship Specialty Start Date End Date Avelino Dunlap MD PCP - General 08/09/17 04/05/20 Vikram Regalado MD [address] [place], [place] [id number] PCP - General Internal Medicine 04/06/20 Vikram Regalado MD [address] [place], [place] [id number] 04/06/20 Naveen Wilcox MD [address] [place] [address] Referring Physician Urology 10/21/17 Meet Fulton MD [address] [facility] [address] [place] [address] Radiation Oncologist Radiation Oncology 11/13/17 Naveen Wilcox MD [address] [place] [address] Referring Physician Urology 11/13/17 documented as of this encounter
--- OUTSIDE RECORDS SUMMARY | 2024-05-20 18:57 | XMS_ITS | Clinical Summary ---
Author Organization [facility] Address [address] [place] [address] Care Team Providers Care Flanging Machine Operator Name Role Phone Vikram Regalado MD Primary Care Provider [phone] Vikram Regalado MD Unavailable Naveen Wilcox MD Unavailable Meet Fulton MD Unavailable [phone] Naveen Wilcox MD Unavailable Allergies No known [...] 021 Assessment & Plan (04/08/2020 10:53 AM HEALTH AND PHYSICAL EDUCATION PROFESSOR): Patient has a history of peripheral vascular [...] 04/08/2020 Assessment & Plan (04/08/2020 10:53 AM HEALTH AND PHYSICAL EDUCATION PROFESSOR): After looking at the patient's history and [...] disease) Assessment & Plan (04/08/2020 10:54 AM HEALTH AND PHYSICAL EDUCATION PROFESSOR): Followed by his PCP. Patient does also [...] 06/15/2016 Assessment & Plan (04/08/2020 10:54 AM HEALTH AND PHYSICAL EDUCATION PROFESSOR): Followed by his PCP and on medications. Well adult health check 06/15/2016 Surgical History Surgery Date Site/Laterality Comments HERNIA REPAIR VASCULAR SURGERY DVT HIP SURGERY FEMUR FRACTURE SURGERY ARTERIAL ANEURYSM REPAIR FEMORAL ARTERY - TIBIAL ARTERY BYPASS GRAFT Medical History Medical History Date Comments Personal history of other di seases of the respiratory system History of chronic obstructi ve lung disease - (Added by TW Conv) Personal history of malignan t neoplasm of prostate History of malignant neoplas m of prostate - (Added by TW Conv) COPD (chronic obstructive pu lmonary disease) (HCC) DOMINIC on CPAP Aneurysm (CMS/HCC) (HCC) repaire d with coil placement Arthritis Hypertension Cancer (CMS/HCC) (HCC) Stage 2 P rostate DVT (deep vein thrombosis) in Peripheral vascular disease (HCC) Clotting disorder (CMS/HCC) (HCC) Hypercholesteremia Osteoarthritis Family History Medical History Relation Name Comments Arthritis Other Cancer Other Hypertension Other Lung disease Other Relation Name Status Comments Other Social History Tobacco Use Types Packs/Day Years [...] on file Sexual Orientation Not on file Obstetrics History Last Filed Vital Signs Vital Sign Reading [...] 07/22/2021 1:03 PM CDT Plan of Treatment Health Maintenance Due Date Last Done Comments Depression Screening 1945 Hepatitis C Screening 1945 DTaP/Tdap/Td Vaccine (1 - Tdap) 1956 Hepatitis B Screening 09/24/1963 Pneumococcal vaccine 65+ (1 of 2 - PCV) 1964 Zoster Vaccine (1 of 2) 09/24/1995 Abdominal Aortic Aneurysm (AAA) Screen 2010 Well Visit 65+ 2010 Fall Risk Assessment 12/30/2021 12/30/2020 Influenza Vaccine (#1) 2023 Medical Devices Implanted Type Area Security Trainer Device Identifier Shelf Expiration Date Model / Serial / Lot Other - See Comments-08/02/2000 Implanted: 001 (Quantity not on file) Other - see comments Brain [place] Neurovascular Description:Rebecca Coil [employer]/Richco/Ort ho [id number] Intertan 10mm 20cm Trochanter 130d Short Nail Intramedullary - [id number] Implanted:Qty: 1 on 08/04/2018 by Mikaela Alvarenga MD at [facility] Right: Hip [employer]hew/Richco/O rtho [id number] / / [employer]hew/Richco/Ort ho [id number] Intertan 4.5mm 100mm 95mm Lag Compression Integrated Interlocking - [id number] Implanted:Qty: 1 on 08/04/2018 by Mikaela Alvarenga MD at [facility] Right: Hip [employer]hew/Richco/O rtho [id number] / / Wilkinson [employer] Nephew/Richco/Ort ho [id number] 5mm 32.5mm Low Profile Internal Hex Femur Screw Bone Trigen - [id number] Implanted:Qty: 1 on 08/04/2018 by Mikaela Alvarenga MD at [facility] Right: Hip [employer]hew/Richco/O rtho [id number] / / Insurance HUMANA CHOICE MEDICARE PPO HUMANA CHOICE MEDICARE PPO COMMERCIAL GENERIC HUMANA CHOICE MEDICARE PPO WORKERS COMPENSATION GENERIC Advance Directives For more information, please contact: [phone] * Full Code (Latest Code Status on File) Date Activated Date Inactivated Comments 08/04/2018 2:47 PM 08/07/2018 9:21 PM * Full Code Date Activated Date Inactivated Comments 10/23/2017 12:21 PM 10/24/2017 3:38 PM Care Teams Flanging Machine Operator Relationship Specialty Start Date End Date Vikram Regalado MD [address] [place] [address] PCP - General Internal Medicine 04/06/20 Vikram Regalado MD [address] [place] [address] 04/06/20 Naveen Wilcox MD [address] [place] [address] Referring Physician Urology 10/21/17 Meet Fulton MD [address] [facility] [address] [place] [address] Radiation Oncologist Radiation Oncology 11/13/17 Naveen Wilcox MD [address] [place] [address] Referring Physician Urology 11/13/17
--- OUTSIDE RECORDS SUMMARY | 2024-05-20 18:57 | XMS_ITS ---
Author Organization [facility] Address [address] [place] [address] Care Team Providers Care Horseback Excavator Name Role Phone Vikram Regalado MD Primary Care Provider [phone] Vikram Regalado MD Unavailable Naveen Wilcox MD Unavailable Meet Fulton MD Unavailable [phone] Naveen Wilcox MD Unavailable Active Problems Problem Noted Date Diagnosed Date Hyperlipidemia 03/16/2021 Cerebral aneurysm, nonruptured 09/16/2020 Primary osteoarthritis of both ankles 08/25/2020 History of arthroplasty of left hip 04/20/2020 Pain due to total hip replacement ([facility]) 03/28 Peripheral vascular disease, unspecified 021 Assessment & Plan (04/08/2020 10:53 AM MANAGER COMMUNITY): Patient has a history of peripheral vascular [...] 04/08/2020 Assessment & Plan (04/08/2020 10:53 AM MANAGER COMMUNITY): After looking at the patient's history and [...] disease) Assessment & Plan (04/08/2020 10:54 AM MANAGER COMMUNITY): Followed by his PCP. Patient does also [...] 06/15/2016 Assessment & Plan (04/08/2020 10:54 AM MANAGER COMMUNITY): Followed by his PCP and on medications. Well adult health check 06/15/2016 Current Treatment and Therapy Plans No current plan information found. Past Treatment and Therapy Plans No past plan information found. Radiation Treatments * Course C1 PROSTATE 2018 11/10/2017 - 11/23/2017 Treatment Period Energy Fraction Dose Fractions Total Dose Plans Planned PROSTATE 11/10/2017 - 11/23/2017 725 5 / 3,625 Reference Points Delivered DPV_PTV 11/10/2017 - 11/23/2017 3,625 Lifetime Dose Tracking * Chemical Lifetime Dose Automatic Entry Manual Entr y Fluoro Time 17.54 minutes 17.54 minutes 0 minutes Air kerma at the reference point (Ka,r) 1,196.86 mGy 1 ,196.86 mGy 0 mGy
== END 2024-05-20 17:33 | disposition home or self-care (01) ==
PROVIDERS: PCP Nurse Practitioner Family; Visit Provider Nurse Practitioner Family
DX: R05.9 Cough, unspecified (principal); R06.09 Other forms of dyspnea
CPT/HCPCS: 71046

== ENCOUNTER 2024-06-01 09:25 | Outpatient (CLI) | payer MEDICARE, SELFPAY ==
--- NOTE | ~2024-06-01 | CT_ITS ---
CT Scan of the Chest without Contrast: Clinical Indication: Lung cancer screening, nicotine dependence Technique: Contiguous sections were acquired throughout the chest without intravenous contrast. Dose reduction technique was used on this scan by utilizing automated exposure control and iterative recon struction technique. The dose-length product (DLP) was 81.71 mGy-cm. COMPARISON: 04/26/2023 Findings: There is no evidence of any significant mediastinal, hilar or axillary lymphadenopathy. The mediastin al soft tissues appear normal. There is no evidence of pleural or pericardial effusion. There is advanced emphysema. There is a 4 mm nodule at the posterior lung apex, new from prior exam ( axial image 28). 4 mm irregular nodule the right lung apex, new from prior exam (axial image 23). Images through the upper abdomen reveal suspected micronodular contour of liver. Degenerative spondyl osis of the thoracic spine present. Impression: Lung RADS 2: Benign appearance. [address] advised. Advanced emphysema. Probable early cirrhotic change of liver. Reviewed, dictated and finalized at location . Impression: Lung RADS 2: Benign appearance. [address] advised. Advanced emphysema. Probable early cirrhotic change of liver.
--- OUTSIDE RECORDS SUMMARY | 2024-06-01 09:29 | XMS_ITS | Encounter Summary ---
Author Organization [facility] Healthcare Address [address] [place] [address] Care Team Providers Care Associate Publisher Name Role Phone Avelino Dunlap MD Primary Care Provider [phone] Vikram Regalado MD Primary Care Provider [phone] Vikram Regalado MD Unavailable Naveen Wilcox MD Unavailable Meet Fulton MD Unavailable [phone] Naveen Wilcox MD Unavailable Encounter Details Date Type Department Care Team (Late st Contact Info) Description 04/15/2019 Orders Only [facility] Advanced Medicine Radiation Oncology [address] [facility] [place] [address] Zain Berman MA Prostate cancer (HCC) (Primary Dx) Social History Tobacco Use Types [...] total and free Lab Routine Prostate cancer (HCC) 1 Occurrences starting 04/15/2019 until 04/15/2020 documented as of this encounter Visit Diagnoses Diagnosis Prostate cancer (HCC)- Primary Malignant neoplasm of prostate documented in this encounter Care Teams Associate Publisher Relationship Specialty Start Date End Date Avelino Dunlap MD PCP - General 08/09/17 04/05/20 Vikram Regalado MD [address] [place] [address] PCP - General Internal Medicine 04/06/20 Vikram Regalado MD [address] [place] [address] 04/06/20 Naveen Wilcox MD [address] [place], [place] [address] Referring Physician Urology 10/21/17 Meet Fulton MD [address] [facility] [address] [place] [address] Radiation Oncologist Radiation Oncology 11/13/17 Naveen Wilcox MD [address] [place] [address] Referring Physician Urology 11/13/17 documented as of this encounter
--- OUTSIDE RECORDS SUMMARY | 2024-06-01 09:29 | XMS_ITS | Clinical Summary ---
Author Organization [facility] Address [address] [place] [id number] Phone Care Team Providers Care Program Director/Morning Show Host Name Role Phone Vikram Regalado MD Primary Care Provider Allergies Active Allergy Reactions Criticality Noted Date [...] 2010 Influenza Vaccine (#1) 2023 Care Teams Program Director/Morning Show Host Relationship Specialty Start Date End Date Vikram Regalado MD [address] [place] [id number] PCP - General Family Medicine 06/10/20
--- OUTSIDE RECORDS SUMMARY | 2024-06-01 09:29 | XMS_ITS | CONTINUITY OF CARE DOCUMENT ---
Author Name smita marielleeunice Address Unknown Organization [facility] Address [address] [place] [address] [address] [place] [address] Phone [phone] Care Team Providers Care Packager Or Packer And Weigher Name Role Phone Milena BORJAS, Derick Unavailable Avelino Dunlap MD Unavailable Avelino Dunlap MD [...] In-person encounter Office Visit Derick Abbott MD [facility] C O P DHyperlipidemiaHypertensionPeripheral Vascular Disease - In-person encounter Office Visit Derick Abbott MD [facility] Chest painSinus bradycardiaHTN essentialCOPDPVD with claudicationDVTSleep [...] s: Thad ludwig: 1 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 Derick Abbott MD smoking, year quit 2018 Sandra hale smoking history, tot al pack/day 1 PPD Sandra Reyes cigarette use yes Sandra guidry smoking status Former smoker Sandra valdez FAMILY HISTORY Family Member Condition Full Brother Family History of Co ronary Artery Disease: INSURANCE PROVIDERS Payer name Policy type / Coverage type Cat red republican ID [employer] MEDICARE Medicare [id number] ADVANCE DIRECTIVES Name Date DISCUSSED - NO [...]
--- OUTSIDE RECORDS SUMMARY | 2024-06-01 09:29 | XMS_ITS | Clinical Summary ---
Author Organization [facility] Address [address] [place] [address] Care Team Providers Care Team Physician Name Role Phone Vikram Regalado MD Primary Care Provider [phone] Vikram Regalado MD Unavailable Naveen Wilcox MD Unavailable Meet Fulton MD Unavailable [phone] Naveen Wilcox MD Unavailable Allergies No known [...] 04/20/2020 Pain due to total hip replacement 04/17/2020 Peripheral vascular disease, unspecified 021 Assessment & Plan (04/08/2020 10:53 AM ATHLETIC COACH): Patient has a history of peripheral vascular [...] 04/08/2020 Assessment & Plan (04/08/2020 10:53 AM ATHLETIC COACH): After looking at the patient's history and [...] disease) Assessment & Plan (04/08/2020 10:54 AM ATHLETIC COACH): Followed by his PCP. Patient does also [...] Chest pain 09/19/2017 Deep vein thrombosis (DVT) 09/19/2017 Sinus bradycardia 09/19/2017 Confusion 06/27/2017 Cough 06/27/2017 Weight loss 06/27/2017 Memory impairment 05/12/2017 Serum creatinine raised 05/12/2017 Essential hypertension 06/15/2016 Assessment & Plan (04/08/2020 10:54 AM ATHLETIC COACH): Followed by his PCP and on medications. [...] lmonary disease) (HCC) DOMINIC on CPAP Aneurysm repaired with co il placement Arthritis Hypertension Cancer (HCC) Stage 2 Prostate DVT (deep vein thrombosis) in Peripheral vascular disease Clotting disorder Hypercholesteremia Osteoarthritis Family History Medical History Relation [...] (#1) 2023 Medical Devices Implanted Type Area Skilled Labor Device Identifier Shelf Expiration Date Model / Serial / Lot Other - See Comments-08/02/2000 Implanted: 001 (Quantity not on file) Other - see comments Brain [place] Neurovascular Description:Rebecca Coil [employer]/Richco/Ort ho [id number] Intertan 10mm 20cm Trochanter 130d Short Nail Intramedullary - [id number] Implanted:Qty: 1 on 08/04/2018 by Mikaela Alvarenga MD at [facility] Right: Hip [employer]hew/Richco/O rtho [id number] / / Wilkinson [employer]hew/Richco/Ort ho [id number] Intertan 4.5mm 100mm 95mm Lag Compression Integrated Interlocking - [id number] Implanted:Qty: 1 on 08/04/2018 by Mikaela Alvarenga MD at [facility] Right: Hip [employer]hew/Richco/O rtho [id number] / / Wilkinson [employer]hew/Richco/Ort ho [id number] 5mm 32.5mm Low Profile Internal Hex Femur Screw Bone Trigen - [id number] Implanted:Qty: 1 on 08/04/2018 by Mikaela Alvarenga MD at [facility] Right: Hip [employer]hew/Richco/O rtho [id number] / / Insurance [employer] MEDICARE PPO HUMANA CHOICE MEDICARE PPO COMMERCIAL GENERIC [email or web address] CHOICE MEDICARE PPO WORKERS COMPENSATION GENERIC Advance Directives For more information, please contact: [phone] * Full Code (Latest Code Status on File) Date Activated Date Inactivated Comments 08/04/2018 2:47 PM 08/07/2018 9:21 PM * Full Code Date Activated Date Inactivated Comments 10/23/2017 12:21 PM 10/24/2017 3:38 PM Care Teams Team Physician Relationship Specialty Start Date End Date Vikram Regalado MD [address] [place] [address] PCP - General Internal Medicine 04/06/20 Vikram Regalado MD [address] [place] [address] 04/06/20 Naveen Wilcox MD [address] [place] [address] Referring Physician Urology 10/21/17 Meet Fulton MD [address] [facility] [address] [place] [address] Radiation Oncologist Radiation Oncology 11/13/17 Naveen Wilcox MD [address] [place] [address] Referring Physician Urology 11/13/17
--- OUTSIDE RECORDS SUMMARY | 2024-06-01 09:29 | XMS_ITS | Referral Summary ---
Author Organization [facility] Address [address] [place] [address] Care Team Providers Care Water Conservationist Name Role Phone Vikram Regalado MD Primary Care Provider [phone] Vikram Regalado MD Unavailable Naveen Wilcox MD Unavailable Meet Fulton MD Unavailable [phone] Naveen Wilcox MD Unavailable Allergies No known [...] 021 Assessment & Plan (04/08/2020 10:53 AM INFORMATION RECEPTIONIST): Patient has a history of peripheral vascular [...] 04/08/2020 Assessment & Plan (04/08/2020 10:53 AM INFORMATION RECEPTIONIST): After looking at the patient's history and [...] disease) Assessment & Plan (04/08/2020 10:54 AM INFORMATION RECEPTIONIST): Followed by his PCP. Patient does also [...] 06/15/2016 Assessment & Plan (04/08/2020 10:54 AM INFORMATION RECEPTIONIST): Followed by his PCP and on medications. [...] on file Medical Devices Implanted Type Area Swatcher Device Identifier Shelf Expiration Date Model / Serial / Lot Other - See Comments-08/02/2000 Implanted: 001 (Quantity not on file) Other - see comments Brain [place] Neurovascular Description:[place] Coil Wilkinson & Nephew/Richco/Ort ho [id number] Intertan 10mm 20cm Trochanter 130d Short Nail Intramedullary - [id number] Implanted:Qty: 1 on 08/04/2018 by Mikaela Alvarenga MD at [facility] Right: Hip Wilkinson & Nephew/Richco/O rtho [id number] / / Wiliknson & Nephew/Richco/Ort ho [id number] Intertan 4.5mm 100mm 95mm Lag Compression Integrated Interlocking - [id number] Implanted:Qty: 1 on 08/04/2018 by Mikaela Alvarenga MD at [facility] Right: Hip Wilkinson & Nephew/Richco/O rtho [id number] / / Wilkinson & Nephew/Richco/Ort ho [id number] 5mm 32.5mm Low Profile Internal Hex Femur Screw Bone Trigen - [id number] Implanted:Qty: 1 on 08/04/2018 by Mikaela Alvarenga MD at [facility] Right: Hip Wilkinson & Nephew/Richco/O rtho [id number] / / Insurance HUMANA CHOICE MEDICARE PPO COMMERCIAL GENERIC HUMANA CHOICE MEDICARE PPO WORKERS COMPENSATION GENERIC Advance Directives For more information, please contact: [phone] * Full Code (Latest Code Status on File) Date Activated Date Inactivated Comments 08/04/2018 2:47 PM 08/07/2018 9:21 PM * Full Code Date Activated Date Inactivated Comments 10/23/2017 12:21 PM 10/24/2017 3:38 PM Care Teams Water Conservationist Relationship Specialty Start Date End Date Vikram Regalado MD [address] [place] [address] PCP - General Internal Medicine 04/06/20 Vikram Regalado MD [address] [place] [address] 04/06/20 Naveen Wilcox MD [address] [place] [address] Referring Physician Urology 10/21/17 Meet Fulton MD [address] [facility] [address] [place] [address] Radiation Oncologist Radiation Oncology 11/13/17 Naveen Wilcox MD [address] [place] [address] Referring Physician Urology 11/13/17
--- OUTSIDE RECORDS SUMMARY | 2024-06-01 09:29 | XMS_ITS ---
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 Patient does also [...] 06/15/2016 Assessment & Plan (04/08/2020 10:54 AM SMALL BATTERY PLATE ASSEMBLER): Followed by his PCP and on medications. [...]
--- OUTSIDE RECORDS SUMMARY | 2024-06-01 09:29 | XMS_ITS | Encounter Summary ---
Author Organization [facility] Healthcare Address [address] [place] [address] Care Team Providers Care Template Maker Name Role Phone Avelino Dunlap MD Primary Care Provider [phone] Vikram Regalado MD Primary Care Provider [phone] Vikram Regalado MD Unavailable Naveen Wilcox MD Unavailable Meet Fulton MD Unavailable [phone] Naveen Wilcox MD Unavailable Encounter Details Date Type Department Care Team (Late st Contact Info) Description 11/13/2017 Documentation [facility] Radiation Oncology [address] [facility] [place] [address] Carlene Metzger Social History Tobacco Use Types [...] on filedocumented in this encounter Care Teams Template Maker Relationship Specialty Start Date End Date Avelino Dunlap MD PCP - General 08/09/17 04/05/20 Vikram Regalado MD [address] [place] [address] PCP - General Internal Medicine 04/06/20 Vikram Regalado MD [address] [place] [address] 04/06/20 Naveen Wilcox MD [address] [place] [address] Referring Physician Urology 10/21/17 Meet Fulton MD [address] [facility] [address] [place] [address] Radiation Oncologist Radiation Oncology 11/13/17 Naveen Wilcox MD [address] [place] [address] Referring Physician Urology 11/13/17 documented as of this encounter
--- OUTSIDE RECORDS SUMMARY | 2024-06-01 09:29 | XMS_ITS | Encounter Summary ---
Author Organization [facility] Healthcare Address [address] [place] [address] Care Team Providers Care Paralegal Secretary Name Role Phone Avelino Dunlap MD Primary Care Provider [phone] Vikram Regalado MD Primary Care Provider [phone] Vikram Regalado MD Unavailable Naveen Wilcox MD Unavailable Meet Fulton MD Unavailable [phone] Naveen Wilcox MD Unavailable Encounter Details Date Type Department Care Team (Late st Contact Info) Description 12/20/2018 Telephone [facility] Radiation Oncology [address] [facility] [place] [address] Jaswinder Benavides BS Social History Tobacco Use [...] on filedocumented in this encounter Care Teams Paralegal Secretary Relationship Specialty Start Date End Date Avelino Dunlap MD PCP - General 08/09/17 04/05/20 Vikram Regalado MD [address] [place] [address] PCP - General Internal Medicine 04/06/20 Vikram Regalado MD [address] [place] [address] 04/06/20 Naveen Wilcox MD [address] [place] [address] Referring Physician Urology 10/21/17 Meet Fulton MD [address] [facility] [address] [place] [address] Radiation Oncologist Radiation Oncology 11/13/17 Naveen Wilcox MD [address] [place] [address] Referring Physician Urology 11/13/17 documented as of this encounter
== END 2024-06-01 09:26 | disposition home or self-care (01) ==
PROVIDERS: PCP Nurse Practitioner Family; Visit Provider Nurse Practitioner Family
DX: Z12.2 Encounter for screening for malignant neoplasm of respiratory organs (principal); Z87.891 Personal history of nicotine dependence; J43.9 Emphysema, unspecified
CPT/HCPCS: 71271

== ENCOUNTER 2024-06-22 07:42 | Outpatient (CLI) | payer MEDICARE, SELFPAY ==
--- NOTE | ~2024-06-22 | US_ITS ---
EXAM: ABDOMEN ULTRASOUND HISTORY: R91.8 - Other nonspecific abnormal finding of lung field COMPARISON: Reference is made to a CT examination of the chest dated 06/01/2024 which suggested a micro nodular contour of the liver. FINDINGS: LIVER: The liver is increased in echogenicity and unremarkable in size. The portal vein is patent, demonstrating hepatopedal flow. The contour of the liver surface is smooth. GALLBLADDER: No stones are identified within the gallbladder, which is otherwise unremarkable. No gallbladder wall thickening or pericholecystic fluid. BILE DUCTS: Common bile duct measures 4.5mm. PANCREAS: Limited evaluation of the pancreas secondary to overlying bowel gas IMPRESSION: Unremarkable sonographic evaluation of the right upper quadrant, as detailed above. Reviewed, dictated and finalized at location A. IMPRESSION: Unremarkable sonographic evaluation of the right upper quadrant, as detailed ab ove.
--- OUTSIDE RECORDS SUMMARY | 2024-06-22 07:47 | XMS_ITS | Encounter Summary ---
Author Organization [facility] Healthcare Address [address] [place] [address] Care Team Providers Care Data Support Analyst Name Role Phone Avelino Dunlap MD Primary Care Provider [phone] Vikram Regalado MD Primary Care Provider [phone] Vikram Regalado MD Unavailable Naveen Wilcox MD Unavailable eMet Fulton MD Unavailable [phone] Naveen Wilcox MD Unavailable Encounter Details Date Type Department Care Team (Late st Contact Info) Description 11/13/2017 Documentation [facility] Radiation Oncology [address] [facility] [place] [address] Carlene Metzger Social History Tobacco Use Types [...] on filedocumented in this encounter Care Teams Data Support Analyst Relationship Specialty Start Date End Date Avelino Dunlap MD PCP - General 08/09/17 04/05/20 Vikram Regalado MD [address] [place] [address] PCP - General Internal Medicine 04/06/20 Vikram Regalado MD [address] [place] [address] 04/06/20 Naveen Wilcox MD [address] [place] [address] Referring Physician Urology 10/21/17 Meet Fulton MD [address] [facility] [address] [place] [address] Radiation Oncologist Radiation Oncology 11/13/17 Naveen Wilcox MD [address] [place] [address] Referring Physician Urology 11/13/17 documented as of this encounter
--- OUTSIDE RECORDS SUMMARY | 2024-06-22 07:47 | XMS_ITS | Encounter Summary ---
Author Organization [facility] Healthcare Address [address] [place] [address] Care Team Providers Care Magnetic Prospecting Supervisor Name Role Phone Avelino Dunlap MD Primary Care Provider [phone] Vikram Regalado MD Primary Care Provider [phone] Vikram Regalado MD Unavailable Naveen Wilcox MD Unavailable Meet Fulton MD Unavailable [phone] Naveen Wilcox MD Unavailable Encounter Details Date Type Department Care Team (Late st Contact Info) Description 04/15/2019 Orders Only [facility] Radiation Oncology [address] [facility] [place] [address] Zain Berman MA Prostate cancer (HCC) (Primary [...] prostate documented in this encounter Care Teams Magnetic Prospecting Supervisor Relationship Specialty Start Date End Date Avelino Dunlap MD PCP - General 08/09/17 04/05/20 Vikram Regalado MD [address] [place] [address] PCP - General Internal Medicine 04/06/20 Vikram Regalado MD [address] [place] [address] 04/06/20 Naveen Wilcox MD [address] [place] [address] Referring Physician Urology 10/21/17 Meet Fulton MD [address] [facility] [address] [place] [address] Radiation Oncologist Radiation Oncology 11/13/17 Naveen Wilcox MD [address] [place] [address] Referring Physician Urology 11/13/17 documented as of this encounter
--- OUTSIDE RECORDS SUMMARY | 2024-06-22 07:47 | XMS_ITS ---
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 Patient does also [...] 06/15/2016 Assessment & Plan (04/08/2020 10:54 AM STAVE GRADER): Followed by his PCP and on medications. [...]
--- OUTSIDE RECORDS SUMMARY | 2024-06-22 07:47 | XMS_ITS | Encounter Summary ---
Author Organization [facility] Healthcare Address [address] [place] [address] Care Team Providers Care Cfo Controller Name Role Phone Avelino Dunlap MD Primary Care Provider [phone] Vikram Regalado MD Primary Care Provider [phone] Vikram Regalado MD Unavailable Naveen Wilcox MD Unavailable Meet Fulton MD Unavailable [phone] Naveen Wilcox MD Unavailable Encounter Details Date Type Department Care Team (Late st Contact Info) Description 12/20/[address] [facility] Radiation Oncology [address] [facility] [place] [address] Jaswinder Benavides BS Social History Tobacco Use [...] on filedocumented in this encounter Care Teams Cfo Controller Relationship Specialty Start Date End Date Avelino Dunlap MD PCP - General 08/09/17 04/05/20 Vikram Regalado MD [address] [place] [address] PCP - General Internal Medicine 04/06/20 Vikram Regalado MD [address] [place] [address] 04/06/20 Naveen Wilcox MD [address] [place] [address] Referring Physician Urology 10/21/17 [place] [address] [place] [address] [address] [place] [address] Radiation Oncologist Radiation Oncology 11/13/17 Naveen Wilcox MD [address] [place] [address] Referring Physician Urology 11/13/17 documented as of this encounter
--- OUTSIDE RECORDS SUMMARY | 2024-06-22 07:47 | XMS_ITS | CONTINUITY OF CARE DOCUMENT ---
Author Name smita marielleeunice Address Unknown Organization [facility] Address [address] [place] [address] [address] [place] [address] Phone [phone] Care Team Providers Care Furnace Mechanic Name Role Phone Milena BORJAS, Derick Unavailable Avelino Dunlap MD Unavailable Avelino Dunlap MD Unavailable [phone] PROBLEMS Condition Status Date Provider Notes Chest [...] In-person encounter Office Visit Derick Abbott MD [facility] C O P DHyperlipidemiaHypertensionPeripheral Vascular Disease - In-person encounter Office Visit Derick Abbott MD [facility] Chest painSinus bradycardiaHTN essentialCOPDPVD with claudicationDVTSleep [...] s: Thad ludwig: 1 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
--- OUTSIDE RECORDS SUMMARY | 2024-06-22 07:47 | XMS_ITS | Clinical Summary ---
Author Organization [facility] Address [address] [place] [address] Care Team Providers Care Certified Breastfeeding Educator Name Role Phone Vikram Regalado MD Primary Care Provider [phone] Vikram Regalado MD Unavailable Naveen Wilcox MD Unavailable Meet Fulton MD Unavailable [phone] Naveen Wilcox MD Unavailable Allergies No known [...] 021 Assessment & Plan (04/08/2020 10:53 AM SAMPLE COLOR MAKER): Patient has a history of peripheral vascular [...] 04/08/2020 Assessment & Plan (04/08/2020 10:53 AM SAMPLE COLOR MAKER): After looking at the patient's history and [...] disease) Assessment & Plan (04/08/2020 10:54 AM SAMPLE COLOR MAKER): Followed by his PCP. Patient does also [...] 06/15/2016 Assessment & Plan (04/08/2020 10:54 AM SAMPLE COLOR MAKER): Followed by his PCP and on medications. [...] (#1) 2023 Medical Devices Implanted Type Area Highway Patrol Commander Device Identifier Shelf Expiration Date Model / Serial / Lot Other - See Comments-08/02/2000 Implanted: 001 (Quantity not on file) Other - see comments Brain [place] Neurovascular Description:[place] Coil Wilkinson & Nephew/Richco/Ort ho [id number] Intertan 10mm 20cm Trochanter 130d Short Nail Intramedullary - [id number] Implanted:Qty: 1 on 08/04/2018 by Mikaela Alvarenga MD at [facility] Right: Hip Wilkinson & Nephew/Richco/O rtho [id number] / / Wilkinson & Nephew/Richco/Ort ho [id number] Intertan 4.5mm 100mm 95mm Lag Compression Integrated Interlocking - [id number] Implanted:Qty: 1 on 08/04/2018 by Mikaela Alvarenga MD at [facility] Right: Hip Wilkinson & Nephew/Richco/O rtho [id number] / / Wilkinson & Nephew/Richco/Ort ho [id number] 5mm 32.5mm Low Profile Internal Hex Femur Screw Bone Trigen - [id number] Implanted:Qty: 1 on 08/04/2018 by Mikaela Alvarenga MD at [facility] Right: Hip Wilkinson & Nephew/Richco/O rtho [id number] / / Insurance M[employer] MEDICARE PPO HUMANA CHOICE MEDICARE PPO COMMERCIAL GENERIC linkedFAA CHOICE MEDICARE PPO WORKERS COMPENSATION GENERIC Advance Directives For more information, please contact: [phone] * Full Code (Latest Code Status on File) Date Activated Date Inactivated Comments 08/04/2018 2:47 PM 08/07/2018 9:21 PM * Full Code Date Activated Date Inactivated Comments 10/23/2017 12:21 PM 10/24/2017 3:38 PM Care Teams Certified Breastfeeding Educator Relationship Specialty Start Date End Date Vikram Regalado MD [address] [address] PCP - General Internal Medicine 04/06/20 Vikram Regalado MD [address] [address] 04/06/20 Naveen Wilcox MD [address] [address] Referring Physician Urology 10/21/17 Meet Fulton MD [address] [facility] [address] [place] [address] Radiation Oncologist Radiation Oncology 11/13/17 Naveen Wilcox MD [address] [address] Referring Physician Urology 11/13/17
--- OUTSIDE RECORDS SUMMARY | 2024-06-22 07:47 | XMS_ITS | Clinical Summary ---
Author Organization [facility] Address [address] [place] [address] Phone Care Team Providers Care Chronometer Adjuster Name Role Phone Vikram Regalado MD Primary Care Provider [phone] Allergies Active Allergy Reactions Criticality Noted Date [...] 2010 Influenza Vaccine (#1) 2023 Care Teams Chronometer Adjuster Relationship Specialty Start Date End Date Vikram Regalado MD [address] [place] [address] PCP - General Family Medicine 06/10/20
--- OUTSIDE RECORDS SUMMARY | 2024-06-22 07:47 | XMS_ITS | Referral Summary ---
Author Organization [facility] Address [address] [place] [address] Care Team Providers Care Nurse Orthopedic Name Role Phone Vikram Regalado MD Primary Care Provider [phone] Vikram Regalado MD Unavailable Naveen Wilcox MD Unavailable Meet Fulton MD Unavailable [phone] Naveen Wilcox MD Unavailable Allergies No known [...] 021 Assessment & Plan (04/08/2020 10:53 AM CRM DEVELOPER): Patient has a history of peripheral vascular [...] 04/08/2020 Assessment & Plan (04/08/2020 10:53 AM CRM DEVELOPER): After looking at the patient's history and [...] disease) Assessment & Plan (04/08/2020 10:54 AM CRM DEVELOPER): Followed by his PCP. Patient does also [...] 06/15/2016 Assessment & Plan (04/08/2020 10:54 AM CRM DEVELOPER): Followed by his PCP and on medications. [...] on file Medical Devices Implanted Type Area Package Sealer Device Identifier Shelf Expiration Date Model / Serial / Lot Other - See Comments-08/02/2000 Implanted: 001 (Quantity not on file) Other - see comments Brain [place] Neurovascular Description:[place] Coil Wilkinson & Nephew/Richco/Ort ho [id number] Intertan 10mm 20cm Trochanter 130d Short Nail Intramedullary - [id number] Implanted:Qty: 1 on 08/04/2018 by Mikaela Alvarenga MD at [facility] Right: Hip Wilkinson & Nephew/Richco/O rtho [id number] / / Wilkinson & Nephew/Richco/Ort ho [id number] Intertan 4.5mm 100mm 95mm Lag Compression Integrated Interlocking - [id number] Implanted:Qty: 1 on 08/04/2018 by Mikaela Alvarenga MD at [facility] Right: Hip Wilkinson & Nephew/Richco/O rtho [id number] / / Wilkinson & Nephew/Richco/Ort ho [id number] 5mm 32.5mm Low Profile Internal Hex Femur Screw Bone Trigen - [id number] Implanted:Qty: 1 on 08/04/2018 by Mikaela Alvarenga MD at [facility] Right: Hip Wilkinson & Nephew/Richco/O rtho [id number] / / Insurance HUMANA CHOICE MEDICARE PPO COMMERCIAL GENERIC HUMANA CHOICE MEDICARE PPO WORKERS COMPENSATION GENERIC Advance Directives For more information, please contact: [phone] * Full Code (Latest Code Status on File) Date Activated Date Inactivated Comments 08/04/2018 2:47 PM 08/07/2018 9:21 PM * Full Code Date Activated Date Inactivated Comments 10/23/2017 12:21 PM 10/24/2017 3:38 PM Care Teams Nurse Orthopedic Relationship Specialty Start Date End Date Vikram Regalado MD [address] [place] [address] PCP - General Internal Medicine 04/06/20 Vikram Regalado MD [address] [place] [address] 04/06/20 Naveen Wilcox MD [address] [place] [address] Referring Physician Urology 10/21/17 Meet Fulton MD [address] [facility] [address] [place] [address] Radiation Oncologist Radiation Oncology 11/13/17 Naveen Wilcox MD [address] [place] [address] Referring Physician Urology 11/13/17
== END 2024-06-22 07:43 | disposition home or self-care (01) ==
PROVIDERS: PCP Nurse Practitioner Family; Visit Provider Nurse Practitioner Family
DX: R91.8 Other nonspecific abnormal finding of lung field (principal); I10 Essential (primary) hypertension; I73.9 Peripheral vascular disease, unspecified; K74.60 Unspecified cirrhosis of liver; K76.89 Other specified diseases of liver; R93.89 Abnormal findings on diagnostic imaging of other specified body structures
CPT/HCPCS: 76705

== ENCOUNTER 2024-07-03 17:23 | Emergency (ER) | payer MEDICARE, SELFPAY ==
--- NOTE | ~2024-07-03 | XR_ITS ---
XR chest 2V Ordering provider: Adela Loyola APRN History: 78 years Male with . shortness of breath, chest pain . Comparison: May 20, 2024 FINDINGS: MEDIASTINUM: The cardiac silhouette is not enlarged. Prominent radha. LUNGS: No infiltrates, effusions or pneumothorax. OTHER: No free air under the diaphragm. Degenerative changes of the spine. IMPRESSION: No acute cardiopulmonary pathology. Reviewed, dictated and finalized at location A.
[2024-07-03 17:26] VITALS: BP 147/68; PULSE 76; RESP 16; TEMP 36.6; O2SAT 97
--- OUTSIDE RECORDS SUMMARY | 2024-07-03 17:26 | XMS_ITS | Referral Summary ---
Author Organization [facility] Address [address] [place] [address] Care Team Providers Care Data Processing Equipment Repairer Name Role Phone Vikram Regalado MD Primary Care Provider [phone] Vikram Regalado MD Unavailable Naveen Wilcox MD Unavailable Meet Fulton MD Unavailable [phone] Naveen Wilcox MD Unavailable Allergies No known [...] 021 Assessment & Plan (04/08/2020 10:53 AM LOAN CLOSER): Patient has a history of peripheral vascular [...] 04/08/2020 Assessment & Plan (04/08/2020 10:53 AM LOAN CLOSER): After looking at the patient's history and [...] disease) Assessment & Plan (04/08/2020 10:54 AM LOAN CLOSER): Followed by his PCP. Patient does also [...] Group: 2) - Signed by Maria Esther aCrlin MD on 10/21/2017 Assessment & Plan (10/24/2017 11:33 AM CDT): Patient underwent marker placement for planned brachytherapy 10/23 Patient was given ciprofloxacin 250mg for surgical prophylaxis. 5 doses remaining Chest pain 09/19/2017 Deep vein thrombosis (DVT) 09/19/2017 Sinus bradycardia 09/19/2017 Confusion 06/27/2017 Cough 06/27/2017 Weight loss 06/27/2017 Memory impairment 05/12/2017 Serum creatinine raised 05/12/2017 Essential hypertension 06/15/2016 Assessment & Plan (04/08/2020 10:54 AM LOAN CLOSER): Followed by his PCP and on medications. [...] on file Medical Devices Implanted Type Area Transition Nurse Device Identifier Shelf Expiration Date Model / Serial / Lot Other - See Comments-08/02/2000 Implanted: 001 (Quantity not on file) Other - see comments Brain Chilton Neurovascular Description:Chilton Coil [employer]/Richco/Ort ho [id number] Intertan 10mm 20cm Trochanter 130d Short Nail Intramedullary - [id number] Implanted:Qty: 1 on 08/04/2018 by Mikaela Alvarenga MD at [facility] Right: Hip [employer]hew/Rich[employer]/O rtho [id number] / / [employer]hew/Richco/Ort ho [id number] Intertan 4.5mm 100mm 95mm Lag Compression Integrated Interlocking - [id number] Implanted:Qty: 1 on 08/04/2018 by Mikaela Alvarenga MD at [facility] Right: Hip [employer]hew/Richco/O rtho [id number] / / [employer]hew/Richco/Ort ho [id number] 5mm 32.5mm Low Profile Internal Hex Femur Screw Bone Trigen - [id number] Implanted:Qty: 1 on 08/04/2018 by Mikaela Alvarenga MD at [facility] Right: Hip [employer]hew/Richco/O rtho [id number] / / Insurance HUMANA CHOICE MEDICARE PPO COMMERCIAL GENERIC HUMANA CHOICE MEDICARE PPO WORKERS COMPENSATION GENERIC Advance Directives For more information, please contact: [phone] * Full Code (Latest Code Status on File) Date Activated Date Inactivated Comments 08/04/2018 2:47 PM 08/07/2018 9:21 PM * Full Code Date Activated Date Inactivated Comments 10/23/2017 12:21 PM 10/24/2017 3:38 PM Care Teams Data Processing Equipment Repairer Relationship Specialty Start Date End Date Vikram Regalado MD [address] [place] [address] PCP - General Internal Medicine 04/06/20 Vikram Regalado MD [address] [place] [address] 04/06/20 Naveen Wilcox MD [address] [place] [address] Referring Physician Urology 10/21/17 Meet Fulton MD [address] [facility] [address] [place] [address] Radiation Oncologist Radiation Oncology 11/13/17 Naveen Wilcox MD [address] [place] [address] Referring Physician Urology 11/13/17
--- OUTSIDE RECORDS SUMMARY | 2024-07-03 17:26 | XMS_ITS ---
Author Organization [facility] Address [address] [place] [address] Care Team Providers Care Order Filler Name Role Phone Vikram Regalado MD Primary Care Provider [phone] Vikram Reaglado MD Unavailable Naveen Wilcox MD Unavailable Meet Fulton MD Unavailable [phone] Naveen Wilcox MD Unavailable Active Problems Problem Noted Date Diagnosed Date Hyperlipidemia 03/16/2021 Cerebral aneurysm, nonruptured 09/16/2020 Primary osteoarthritis of both ankles 08/25/2020 History of arthroplasty of left hip 04/20/2020 Pain due to total hip replacement 04/17/2020 Peripheral vascular disease, unspecified 021 Assessment & Plan (04/08/2020 10:53 AM SENIOR STOCK PLAN ADMINISTRATOR): Patient has a history of peripheral vascular [...] 04/08/2020 Assessment & Plan (04/08/2020 10:53 AM SENIOR STOCK PLAN ADMINISTRATOR): After looking at the patient's history and [...] disease) Assessment & Plan (04/08/2020 10:54 AM SENIOR STOCK PLAN ADMINISTRATOR): Followed by his PCP. Patient does also [...] 06/15/2016 Assessment & Plan (04/08/2020 10:54 AM SENIOR STOCK PLAN ADMINISTRATOR): Followed by his PCP and on medications. [...]
--- OUTSIDE RECORDS SUMMARY | 2024-07-03 17:26 | XMS_ITS | Encounter Summary ---
Author Organization [facility] Address [address] [place] [address] Care Team Providers Care Gift Shop Clerk Name Role Phone Avelino Dunlap MD Primary Care Provider [phone] Vikram Regalado MD Primary Care Provider [phone] Vikram Regalado MD Unavailable Naveen Wilcox MD Unavailable Meet Fulton MD Unavailable [phone] Naveen Wilcox MD Unavailable Encounter Details Date Type Department Care Team (Late st Contact Info) Description 11/13/[address] [facility] Radiation Oncology [address] [facility] [place] [address] Carlene Metzger Social History Tobacco Use Types [...] on filedocumented in this encounter Care Teams Gift Shop Clerk Relationship Specialty Start Date End Date Avelino Dunlap MD PCP - General 08/09/17 04/05/20 Vikram Regalado MD [address] [place] [address] PCP - General Internal Medicine 04/06/20 Vikram Regalado MD [address] [place] [address] 04/06/20 Naveen Wilcox MD [address] [place] [address] Referring Physician Urology 10/21/17 Meet Fulton MD [address] [facility] [address] [place] [address] Radiation Oncologist Radiation Oncology 11/13/17 Naveen Wilcox MD [address] [place] [address] Referring Physician Urology 11/13/17 documented as of this encounter
--- OUTSIDE RECORDS SUMMARY | 2024-07-03 17:26 | XMS_ITS | Clinical Summary ---
Author Organization [facility] Address [address] [place] [address] Care Team Providers Care Statistical Assistant Name Role Phone Vikram Regalado MD Primary Care Provider [phone] Vikram Regalado MD Unavailable Naveen Wilcox MD Unavailable Meet Fulton MD Unavailable [phone] Naveen Wilcox MD Unavailable Allergies No known [...] Assessment & Plan (04/08/2020 10:53 AM STAVE INSPECTOR): Patient has a history of peripheral vascular [...] Assessment & Plan (04/08/2020 10:53 AM STAVE INSPECTOR): After looking at the patient's history and [...] Assessment & Plan (04/08/2020 10:54 AM STAVE INSPECTOR): Followed by his PCP. Patient does also [...] Assessment & Plan (04/08/2020 10:54 AM STAVE INSPECTOR): Followed by his PCP and on medications. [...] (#1) 2023 Medical Devices Implanted Type Area Deputy [employer] Device Identifier Shelf Expiration Date Model / Serial / Lot Other - See Comments-08/02/2000 Implanted: 001 (Quantity not on file) Other - see comments Brain [place] Neurovascular Description:Rebecca Coil [employer]/Richco/Ort ho [id number] Intertan 10mm 20cm Trochanter 130d Short Nail Intramedullary - [id number] Implanted:Qty: 1 on 08/04/2018 by Mikaela Alvarenga MD at [facility] Right: Hip [employer]/Rich[employer]/O rtho [id number] / / [employer]hew/Richco/Ort ho [id number] Intertan 4.5mm 100mm 95mm Lag Compression Integrated Interlocking - [id number] Implanted:Qty: 1 on 08/04/2018 by Mikaela Alvarenga MD at [facility] Right: Hip [employer]hew/Richco/O rtho [id number] / / [employer]hew/Richco/Ort ho [id number] 5mm 32.5mm Low Profile Internal Hex Femur Screw Bone Trigen - [id number] Implanted:Qty: 1 on 08/04/2018 by Mikaela Alvarenga MD at [facility] Right: Hip [employer]hew/Rich[employer]/O rtho [id number] / / Insurance [employer] MEDICARE PPO HUMANA CHOICE MEDICARE PPO COMMERCIAL GENERIC AmbrxA CHOICE MEDICARE PPO WORKERS COMPENSATION GENERIC Advance Directives For more information, please contact: [phone] * Full Code (Latest Code Status on File) Date Activated Date Inactivated Comments 08/04/2018 2:47 PM 08/07/2018 9:21 PM * Full Code Date Activated Date Inactivated Comments 10/23/2017 12:21 PM 10/24/2017 3:38 PM Care Teams Statistical Assistant Relationship Specialty Start Date End Date Vikram Regalado MD [address] [address] PCP - General Internal Medicine 04/06/20 Vikram Regalado MD [address] [address] 04/06/20 Naveen Wilcox MD [address] [address] Referring Physician Urology 10/21/17 Meet Fulton MD [address] [facility] [address] [place] [address] Radiation Oncologist Radiation Oncology 11/13/17 Naveen Wilcox MD [address] [address] Referring Physician Urology 11/13/17
--- OUTSIDE RECORDS SUMMARY | 2024-07-03 17:26 | XMS_ITS | Encounter Summary ---
Author Organization [facility] Address [address] [place] [address] Care Team Providers Care Vulcanizing Press Operator Name Role Phone Avelino Dunlap MD Primary Care Provider [phone] Vikram Regalado MD Primary Care Provider [phone] Vikram Regalado MD Unavailable Naveen Wilcox MD Unavailable Meet Fulton MD Unavailable [phone] Naveen Wilcox MD Unavailable Encounter Details Date Type Department Care Team (Late st Contact Info) Description 12/20/2018 Telephone [facility] Radiation Oncology [address] [facility] [place] [address] Jaswinder Benavides BS Social History Tobacco Use [...] on filedocumented in this encounter Care Teams Vulcanizing Press Operator Relationship Specialty Start Date End Date Avelino Dunlap MD PCP - General 08/09/17 04/05/20 Vikram Regalado MD [address] [place] [address] PCP - General Internal Medicine 04/06/20 Vikram Regalado MD [address] [place] [address] 04/06/20 Naveen Wilcox MD [address] [place] [address] Referring Physician Urology 10/21/17 [place] [address] [place] [address] [address] [place] [address] Radiation Oncologist Radiation Oncology 11/13/17 Naveen Wilcox MD [address] [place] [address] Referring Physician Urology 11/13/17 documented as of this encounter
--- OUTSIDE RECORDS SUMMARY | 2024-07-03 17:26 | XMS_ITS | CONTINUITY OF CARE DOCUMENT ---
Author Name smita marielleeunice Address Unknown Organization [facility] Address [address] [place] [address] [address] [place] [address] Phone [phone] Care Team Providers Care Soda Tester Name Role Phone Milena BORJAS, Derick Unavailable Avelino Dunlap MD Unavailable [phone] Avelino Dunlap MD Unavailable PROBLEMS Condition Status Date Provider Notes Chest pain active Derick Abbott MD Sinus bradycardia active Derick Abbott MD HTN essential active Derick Abbott MD COPD active Derick Abbott MD PVD with claudication active Derick Abbott MD DVT active Derick Abbott MD Sleep apnea active Derick Abbott MD Prostate cancer active Derick Abbott MD C O P D active ? eDrick Abbott MD Hyperlipidemia active ? Derick Abbott MD Hypertension active ? Derick Abbott MD Peripheral Vascular Disease active ? 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
--- OUTSIDE RECORDS SUMMARY | 2024-07-03 17:26 | XMS_ITS | Clinical Summary ---
Author Organization [facility] Address [address] [place] [address] Phone Care Team Providers Care Hl7 Interface Developer Name Role Phone Vikram Regalado MD Primary Care Provider [phone] Allergies Active Allergy Reactions Criticality Noted Date Comments Amlodipine Edema 01/23/2020 Diclofenac 01/23/2020 Hydrocodone 01/23/2020 Medications Acetaminophen 500 MG capsule Take 1,000 mg by mouth every 6 hours 9 Active albuterol HFA (PROVENTIL HFA) 108 (90 Base) MCG/ACT inhaler albuterol sulfate HFA 90 mcg/actuation aerosol inhaler Active Fluticasone-Ume clidin-Vilant 100-62.5-25 MCG/INH aerosol powder Trelegy Ellipta 100 mcg-62.5 mcg-25 mcg powder for inhalation Active hydroCHLOROthia zide (HYDRODIURIL) 25 MG tablet 0 Active losartan (COZAAR) 100 MG tablet 0 Active metoprolol succinate XL (TOPROL-XL) 50 MG 24 hr tablet TK 1 T PO QD 0 Active tamsulosin (FLOMAX) 0.4 MG 24 hr capsule 0 Active zolpidem (AMBIEN) 5 MG tablet Take 5 mg by mouth 1 (one) time each day 1 Active rosuvastatin (CRESTOR) 10 MG tablet Take 10 mg by mouth 1 (one) time each day 1 Active Active Problems Problem Noted Date Diagnosed [...] specific antigen 05/12/2017 Essential hypertension 06/15/2016 Immunizations Immunization Administration Dates Next Due Influenza TIV (IM) [...] at Not on file Legal Sex Male 11:28 AM MDT Gender Identity Not on file Sexual Orientation [...] of 4 - PCV) 2010 Influenza Vaccine (Season Ended) 2024 Insurance MEDICARE ADVANTAGE Care Teams Hl7 Interface Developer Relationship Specialty Start Date End Date Vikram Regalado MD [address] [place] [phone] PCP - General Family Medicine 06/10/20
--- OUTSIDE RECORDS SUMMARY | 2024-07-03 17:26 | XMS_ITS | Encounter Summary ---
Author Organization [facility] Address [address] [place] [address] Care Team Providers Care Quality Control Checker Name Role Phone Avelino Dunlap MD Primary Care Provider [phone] Vikram Regalado MD Primary Care Provider [phone] Vikram Regalado MD Unavailable Naveen Wilcox MD Unavailable Meet Fulton MD Unavailable [phone] Naveen Wilcox MD Unavailable Encounter Details Date Type Department Care Team (Late st Contact Info) Description 04/15/2019 Orders Only [facility] Radiation Oncology [address] [facility] [place] [address] Zain Berman MA Prostate cancer (HCC) (Primary [...] prostate documented in this encounter Care Teams Quality Control Checker Relationship Specialty Start Date End Date Avelino Dunlap MD PCP - General 08/09/17 04/05/20 Vikram Regalado MD [address] [place] [address] PCP - General Internal Medicine 04/06/20 Vikram Regalado MD [address] [place] [address] 04/06/20 Naveen Wilcox MD [address] [place] [address] Referring Physician Urology 10/21/17 Meet Fulton MD [address] [facility] [address] [place] [address] Radiation Oncologist Radiation Oncology 11/13/17 Naveen Wilcox MD [address] [place] [address] Referring Physician Urology 11/13/17 documented as of this encounter
--- NOTE | 2024-07-03 17:29 | ED_ITS ---
HPI - SOB/Dyspnea General Chief Complaint: Shortness of Breath/Dyspnea Stated Complaint: SOB Time Seen by Provider: 07/03/24 17:30 Focused HPI: Patient is a 78-year-old male who presents to the ER with complaints of shortness of breath. He reports the shortness of breath started approximately 3 weeks ago and has progressively gotten worse. Patient endorses dizziness and intermittent chest pain with shortness of breath. He reports he recently was evaluated by his primary care provider who put him on a Z-Andrea and steroids. Patient reports this is not helped relieve his symptoms and they have progressively gotten worse. He denies any lower extremity swelling, abdominal pain, back pain, recent fevers. GENERAL: Well-appearing, well-nourished, and in mild respiratory distress. HEAD: Normocephalic, atraumatic. CHEST: Wheezing to auscultation. ?Mild respiratory distress. HEART: Regular rate and rhythm.? NEURO: ?Alert and oriented x3. Patient screened in triage and initial orders placed.? ?Additional care and disposition to be based upon?diagnostic testing and treatment. Related Data Home Medications ?Medication ?Instructions ?Recorded ?Confirmed ?Last Taken ?Type acetaminophen 500 mg oral powder 500 mg PO Q6H PRN Pain (Scale 04/11/22 06/04/24 03/13/23 10:00 History packet (Tylenol Extra Strength) Score 4-6) Allergies Allergy/AdvReac Type Severity Reaction Status Date / Time No Known Allergies Allergy Verified 06/04/24 10:37 [facility] Past Medical History Medical History Early satiety Hematochezia COVID-14 Apr 2021. Received infusion therapy 04/22 Obesity (BMI 30.0-34.9) PVD (peripheral vascular disease) CKD (chronic kidney disease) Essential hypertension Dyslipidemia Marijuana use DOMINIC (obstructive sleep apnea) Hypertension DVT of lower extremity, bilateral Brain aneurysm Nicotine dependence SOB (shortness of breath) Tobacco abuse COPD (chronic obstructive pulmonary disease) Surgical History Surgical History Cataract Family History Family History Sibling Acute myocardial infarction Other Family history of malignant neoplasm Social History Social History Smoking packs per day: 1 Smoking cigarettes per day: 20.0 Years smoked: 61 Smoking pack-years: 61.00 Smoking status: Current every day smoker Tobacco type: cigarettes Second hand tobacco smoke exposure: No Alcohol intake: never Substance use: current Substance use type: marijuana Other substance usage details: rare marijuana use Last use: 12/2022 Do You Feel Safe in your Home?: Yes Lack of Transportation: No Lack of Food: Never True Current Housing: I Have Housing Concerned About Future Housing: No Difficulty Paying Gas/Electric Bills: No Difficulty Paying for Meds: No Currently Unemployed: No Education: Grade School Difficulty w/ Childcare or Family Care: No Living arrangements: with family Occupation/Education: retired 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[employer] Gender identity (if verbalized by the patient): Male Sexual Orientation (if Verbalized by the Patient): Straight or Heterosexual Spiritual care concerns: No Agree to blood products: Yes Course Vital Signs Vital signs: Vital Signs Temperature 36.6 C 07/03/24 17:26 Pulse Rate 76 07/03/24 17:26 Respiratory Rate 16 07/03/24 17:26 Blood Pressure 147/68 H 07/03/24 17:26 Pulse Oximetry 97 07/03/24 17:26 Oxygen Delivery Room Air 07/03/24 17:26 Temperature 36.6 C 07/03/24 17:26 Pulse Rate 76 07/03/24 17:26 Respiratory Rate 16 07/03/24 17:26 Blood Pressure 147/68 H 07/03/24 17:26 Pulse Oximetry 97 07/03/24 17:26 Oxygen Delivery Room Air 07/03/24 17:26 MDM - SOB/Dyspnea Lab Data 07/03/24 17:41 07/03/24 17:41 Labs: Lab Results 07/03/24 Range/Units 17:41 WBC 8.0 (4.5-10.0) K/mm3 RBC 3.81 L (4.6-6.20) M/mm3 Hgb 12.1 L (14.0-18.0) g/dL Hct 36.0 L (42.0-52.0) % MCV 94.5 (80-100) fl MCH 31.8 (26-34) pg MCHC 33.6 (32-36) g/dl RDW 13.3 (11.5-14.5) % Plt Count 171 (150-375) k/mm3 MPV 9.7 (7.4-10.4) fl Immature Gran % (Auto) 0.2 (0-0.5) % Neut % (Auto) 72.5 (45.5-73.1) % Lymph % (Auto) 11.3 L (18.3-44.2) % Crawford % (Auto) 13.2 H (2.6-8.5) % Eos % (Auto) 2.7 (0-4.4) % Baso % (Auto) 0.1 L (0.2-1.2) % Lymph # (Auto) 0.91 (0.9-3.2) K/mm3 Crawford # (Auto) 1.1 H (0.1-0.6) K/mm3 Eos # (Auto) 0.2 (0-0.3) K/mm3 Baso # (Auto) 0.0 (0.0-0.1) K/mm3 Abs Immat Gran (auto) 0.02 (0.00-0.031) K/mm3 Absolute Neuts (auto) 5.8 (1.3-6.7) K/mm3 Absolute Nucleated RBC 0.000 (0.0-0.012) K/mm3 Nucleated RBC % 0.0 (0.0-0.2) % PT 14.8 H (11.1-14.7) Seconds INR 1.1 APTT 34.4 (22.3-36.8) Seconds Sodium 139 (137-145) mmol/L Potassium 3.3 L (3.4-5.0) mmol/L Chloride 106 (98-107) mmol/L Carbon Dioxide 21 L (22-30) mmol/L Anion Gap 12 (4-12) mmol/L BUN 15 D (9-20) mg/dL Creatinine 1.04 (0.7-1.3) mg/dL Estim Creat Clear Calc Not Reportable Estimated GFR > 60 (59 - ) Glucose 108 (65-110) mg/dL Calcium 9.0 (8.4-10.2) mg/dL Magnesium 1.7 (1.6-2.3) mg/dL Total Bilirubin 1.1 (0.2-1.3) mg/dL AST 31 (17-59) U/L ALT 16 (6-50) U/L Alkaline Phosphatase 118 (38-126) U/L Troponin I < 0.012 (0.000-0.034) ng/mL NT-Pro-B Natriuret Pep 787 H (19.9-100) pg/mL Total Protein 7.0 (6.3-8.2) g/dL Albumin 4.0 (3.5-5.1) g/dL Discharge Plan Discharge Clinical Impression: Shortness of breath, Chest pain Patient Disposition: Elopement After Seen by Prov Patient Language: Colombian Prescriptions: No Action aspirin [Adult Low Dose Aspirin] 81 mg tablet,delayed release (DR/EC) 81 mg PO DAILY Qty: 90 0RF trazodone 50 mg tablet 50 mg PO QHS PRN (Reason: insomnia) Qty: 60 1RF Rx Instructions: start off with 50 mg nightly then may increase to 100mg nightly Tylenol Extra Strength 500 mg powder in packet 500 mg PO Q6H PRN (Reason: Pain (Scale Score 4-6)) albuterol sulfate [Ventolin HFA] 90 mcg/actuation HFA aerosol inhaler 1 - 2 inh INHALATION Q4-6H PRN (Reason: shortness of breath or wheezing) Qty: 8.5 2RF Trelegy Ellipta 100-62.5-25 mcg blister with device See Rx Instructions .ROUTE .COMPLEX Qty: 60 5RF Dose Instruction: INHALE 1 PUFF BY MOUTH DAILY. RINSE MOUTH AND SPIT AFTER EACH USE Rx Instructions: INHALE 1 PUFF BY MOUTH DAILY. RINSE MOUTH AND SPIT AFTER EACH USE losartan 100 mg tablet See Rx Instructions .ROUTE .COMPLEX Qty: 45 0RF Dose Instruction: TAKE 1/2 TABLET BY MOUTH DAILY Rx Instructions: TAKE 1/2 TABLET BY MOUTH DAILY rosuvastatin 20 mg tablet See Rx Instructions .ROUTE .COMPLEX Qty: 90 0RF Dose Instruction: TAKE 1 TABLET BY MOUTH DAILY Rx Instructions: TAKE 1 TABLET BY MOUTH DAILY tamsulosin 0.4 mg capsule See Rx Instructions .ROUTE .COMPLEX Qty: 90 0RF Dose Instruction: TAKE 1 CAPSULE BY MOUTH DAILY Rx Instructions: TAKE 1 CAPSULE BY MOUTH DAILY amlodipine 5 mg tablet See Rx Instructions .ROUTE .COMPLEX Qty: 90 0RF Dose Instruction: TAKE 1 TABLET BY MOUTH DAILY Rx Instructions: TAKE 1 TABLET BY MOUTH DAILY hydrocodone-acetaminophen 5-325 mg tablet 1 tablet PO Q6H PRN (Reason: pain) Qty: 60 0RF roflumilast [Daliresp] 500 mcg tablet 500 mcg PO DAILY Qty: 30 5RF Follow-up/Referrals: Jackelyn Radford APRN [Primary Care Provider] -
--- NOTE | 2024-07-03 17:29 | ECG_ITS ---
Test Date: 2024-07-03 17:33:46 Measurements Intervals [place] Rate: 75 P: 81 NC: 177 QRS: 71 QRSD: 92 T: 47 QT: 316 QTc: 354 Interpretive Statements SINUS RHYTHM WITH OCCASIONAL VENTRICULAR PREMATURE COMPLEXES WITH OCCASIONAL SUPRAVENTRICULAR PREMATURE COMPLEXES DELAYED PRECORDIAL R/S TRANSITION NONSPECIFIC ST & T-WAVE ABNORMALITY- INFERIOR LEADS BASELINE ARTIFACT- I, II, III, AVR, AVL,A VF, V1, V3-V6 BORDERLINE ECG No previous ECG available for comparison Electronically Signed On 07-03-2024 18:10:34 CDT by Tino Snowden D.O.
[2024-07-03 17:52] LABS: Basophils Percent Auto 0.1 % (0.2-1.2); Eosinophils Absolute Auto 0.2 K/mm3 (0-0.3); Eosinophils Percent Auto 2.7 % (0-4.4); Hemoglobin 12.1 g/dL (14.0-18.0); Immature Granulocyte Absolute 0.02 K/mm3 (0.00-0.031); Immature Granulocyte Percent A 0.2 % (0-0.5); Lymphocytes Absolute Auto 0.91 K/mm3 (0.9-3.2); Lymphocytes Percent Auto 11.3 % (18.3-44.2); Mean Corpuscular HGB Conc 33.6 g/dl (32-36); Mean Corpuscular Hemoglobin 31.8 pg (26-34); Mean Corpuscular Volume 94.5 fl (80-100); Mean Platelet Volume 9.7 fl (7.4-10.4); Monocytes Absolute Auto 1.1 K/mm3 (0.1-0.6); Monocytes Percent Auto 13.2 % (2.6-8.5); Neutrophils Absolute Auto 5.8 K/mm3 (1.3-6.7); Neutrophils Percent Auto 72.5 % (45.5-73.1); Platelet Count Result 171 k/mm3 (150-375); Red Blood Count 3.81 M/mm3 (4.6-6.20); Red Cell Distribution Width 13.3 % (11.5-14.5)
[2024-07-03 18:04] LABS: Alanine Aminotransferase 16 U/L (6-50); Alkaline Phosphatase 118 U/L (38-126); Anion Gap 12 mmol/L (4-12); Aspartate Amino Transferase 31 U/L (17-59); Bilirubin,Total 1.1 mg/dL (0.2-1.3); Blood Urea Nitrogen 15 mg/dL (9-20); Carbon Dioxide 21 mmol/L (22-30); Chloride 106 mmol/L (98-107); Estimated Glomerular Filt Rate > 60; Glucose 108 mg/dL (65-110); Magnesium 1.7 mg/dL (1.6-2.3); Potassium 3.3 mmol/L (3.4-5.0); Sodium 139 mmol/L (137-145)
[2024-07-03 18:09] LABS: INR 1.1; Prothrombin Time 14.8 Seconds (11.1-14.7)
[2024-07-03 18:10] LABS: Partial Thromboplastin Time 34.4 Seconds (22.3-36.8)
[2024-07-03 18:23] LABS: Troponin I < 0.012 ng/mL (0.000-0.034)
[2024-07-03 18:43] LABS: NT Pro B Type Natriuretic Pept 787 pg/mL (19.9-100)
--- OUTSIDE RECORDS SUMMARY | 2024-07-03 21:29 | XMS_ITS | Clinical Summary ---
Author Organization [facility] Address [address] [place] [address] Phone Care Team Providers Care Cabin Crew Name Role Phone Vikram Regalado MD Primary Care Provider [phone] Allergies Active Allergy Reactions Criticality Noted Date [...] Ended) 2024 Insurance MEDICARE ADVANTAGE Care Teams Cabin Crew Relationship Specialty Start Date End Date Vikram Regalado MD [address] [place] [phone] PCP - General Family Medicine 06/10/20
--- OUTSIDE RECORDS SUMMARY | 2024-07-03 21:29 | XMS_ITS | CONTINUITY OF CARE DOCUMENT ---
Author Name smita marielleeunice Address Unknown Organization [facility] Address [address] [place] [address] [address] [place] [address] Phone [phone] Care Team Providers Care Fancy Wire Drawer Name Role Phone Milena BORJAS, Derick Unavailable [phone] Avelino Dunlap MD Unavailable Avelino Dunlap MD [...] In-person encounter Office Visit Derick Abbott MD [facility] DHyperlipidemiaHypertensionPeripheral Vascular Disease - In-person encounter Office Visit Derick Abbott MD [facility] Chest painSinus bradycardiaHTN essentialCOPDPVD with claudicationDVTSleep [...] Take 1 tablet in evening daily Sandra Reyse SOCIAL HISTORY Date Observation Value Provider smoking/tobacco cess ation, patient education and counseling yes Derick Abbott MD social history E&M Marital Statu s: Thad ludwig: 1 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
== END 2024-07-03 18:00 | disposition left against medical advice (07) ==
PROVIDERS: Emergency Provider Registered Nurse; PCP Nurse Practitioner Family
DX: R06.02 Shortness of breath (principal); R07.9 Chest pain, unspecified; I12.9 Hypertensive chronic kidney disease with stage 1 through stage 4 chronic kidney disease, or unspecified chronic kidney disease; N18.9 Chronic kidney disease, unspecified; E78.5 Hyperlipidemia, unspecified; E66.9 Obesity, unspecified; Z68.29 Body mass index [BMI] 29.0-29.9, adult; J44.9 Chronic obstructive pulmonary disease, unspecified; I73.9 Peripheral vascular disease, unspecified; G47.33 Obstructive sleep apnea (adult) (pediatric); F17.210 Nicotine dependence, cigarettes, uncomplicated; Z86.718 Personal history of other venous thrombosis and embolism; Z86.16 Personal history of COVID-19; Z98.49 Cataract extraction status, unspecified eye; Z79.82 Long term (current) use of aspirin; Z79.899 Other long term (current) drug therapy; I49.3 Ventricular premature depolarization; I49.1 Atrial premature depolarization
CPT/HCPCS: 36415; 71046; 80053; 83735; 83880; 84484; 85025; 85610; 85730; 93005; 99284

== ENCOUNTER 2024-07-08 03:46 | Inpatient (IN) | payer MEDICARE, SELFPAY ==
[2024-07-08] VITALS (33 sets, daily range): BP systolic 100–184; BP diastolic 56–86; PULSE 80–127; RESP 16–42; TEMP 36.7–37.1; O2SAT 92–100; BMI 36.1
--- NOTE | 2024-07-08 | ECHO_ITS ---
Patient Info Name: Reji Briceno Age: 78 years : 1945 Gender: Male Ht: 60 in Wt: 185 lbs BSA: 1.93 m2 HR: 100 bpm BP: 145 / 63 mmHg Heart Rhythm: Sinus Rhythm Technical Quality: Poor Exam Date: 07/08/2024 1:00 PM Exam Location: Echo Lab Patient Status: Outpatient Admit Date: 07/08/2024 Staff Ordering Physician: Gabino Granda MD Real Estate Loan Officer: Jessy Torres RDCS Attending Provider: Gabino Granda MD Exam Type: CA echo dop color flow w con Study Info Indications - Afib, RVR Complete two-dimensional, color flow and Doppler transthoracic echocardiogram is performed with contrast to opacify the left ventricle and to improve the deliniation of the left ventricle endocardial borders. Contrast/Agitated Saline Contrast/Ag. Saline: Definity Amount: 2.00 ml Administered By: Jessy Torres RDCS Existing IV Access: Yes IV Access Condition: patent with no signs of infiltration Summary 1. Definity contrast administered improved wall motion interpretation. 2. Left ventricular chamber dimension is normal. 3. Left ventricular systolic function is normal, estimated at 65-70%. 4. The left ventricular diastolic function is grade I diastolic dysfunction. 5. E/e' 6 is not elevated. 6. There is mild aortic valve sclerosis. Left Ventricle Definity contrast administered improved wall motion interpretation. E/e' 6 is not elevated. Left ventricular chamber dimension is normal. Left ventricular systolic function is normal, estimated at 65-70%. The left ventricular diastolic function is grade I diastolic dysfunction. Right Ventricle Right ventricular chamber dimension is normal. Right ventricular systolic function is normal. Left Atria Left atrial chamber dimension is normal. Right Atria Right atrial chamber dimension is normal. Aortic Valve The aortic valve is trileaflet. There is mild aortic valve sclerosis. There is no aortic valve stenosis. There is no aortic valve regurgitation. Pulmonic Valve There is no pulmonic regurgitation. Mitral Valve There is no mitral valve stenosis. There is no mitral valve regurgitation. Tricuspid Valve There is no tricuspid valve regurgitation. Pericardium/Pleural There is no pericardial effusion. Inferior Vena Cava Normal inferior vena cava with >50% collapse upon inspiration consistent with normal right atrial pressure, 5 mmHg. Aorta The aortic root size at the sinus of Valsalva is normal. Left Ventricular Outflow Tract Name Value Normal LVOT 2D LVOT Diameter 2.30 cm LVOT Doppler LVOT Peak Gradient 3 mmHg LVOT Mean Gradient 1 mmHg LVOT VTI 13.83 cm LVOT VTI/AV VTI Ratio 0.80 LVOT Stroke Volume 57.55 ml LVOT CO 5.02 l/min LVOT CI 2.60 L/min/m2 Pulmonic Valve Name Value Normal RVOT Doppler RVOT Peak Gradient 2 mmHg PV Doppler PV Peak Gradient 4 mmHg Mitral Valve Name Value Normal MV Doppler MV Decel Randall 325.95 cm/s2 MV PHT 0 s MV Area (PHT) 4.07 cm2 4.00-5.00 MV Diastolic Function MV E Peak Velocity 60.69 cm/s MV A Peak Velocity 78.49 cm/s MV E/A 0.77 MV Decel Time 0 s MV Annular TDI MV E/e' (Septal) 8.22 <=8.00 MV E/e' (Lateral) 5.11 <=8.00 MV E/e' (Average) 6.67 Tricuspid Valve Name Value Normal Estimated PAP/RSVP RA Pressure 5 mmHg <=5 Aorta Name Value Normal Ascending Aorta Ao Root Diameter (MM) 3.49 cm Ao Root Diam Index (MM) 1.81 cm/m2 Aortic Valve Name Value Normal AV Doppler AV Peak Velocity 119.37 cm/s AV Peak Gradient 6 mmHg AV Mean Gradient 2 mmHg AV VTI 17.33 cm AV Area (Cont Eq VTI) 3.32 cm2 >=3.00 AV Area (Cont Eq Dimitry) 2.78 cm2 AV Regurgitation 2D LVOT Area 4.16 cm2 Ventricles Name Value Normal LV Dimensions 2D/MM IVS Diastolic Thickness (2D) 1.02 cm 0.60-1.00 LVID Diastole (2D) 3.92 cm 4.20-5.80 LVIW Diastolic Thickness (2D) 1.02 cm 0.60-1.00 LVID Systole (2D) 2.79 cm 2.50-4.00 LVOT Diameter 2.30 cm LV Mass (2D Cubed) 126.49 g 88.00-224.00 LV Mass Index (2D Cubed) 0.01 g/cm2 0.00-0.01 Relative Wall Thickness (2D) 0.52 LV Fractional Shortening/Ejection Fraction 2D/MM LV Fractional Shortening (2D) 29 % 25-43 LV EF (2D Teicholz) 56 % 52-72 LV Diastolic Volume (4C MOD) 60.36 ml LV EF (4C MOD) 51 % LV Diastolic Volume (2C MOD) 38.48 ml LV EF (2C MOD) 41 % LV Diastolic Volume (BP MOD) 50.61 ml 62.00-150.00 LV Diastolic Volume Index (BP MOD) 0.03 l/m2 0.03-0.07 LV Systolic Volume (BP MOD) 29.09 ml 21.00-61.00 LV Systolic Volume Index (BP MOD) 0.02 l/m2 0.01-0.03 LV EF (BP MOD) 43 % 52-72 LV Diastolic Length (4C) 7.12 cm LV Systolic Length (4C) 6.41 cm LV Stroke Volume (4C MOD) 30.85 ml Atria Name Value Normal LA Dimensions LA Dimension (MM) 4.45 cm 3.00-4.10 LA Volume (4C A-L) 32.95 ml LA Volume (BP A-L) 39.35 ml RA Dimensions RA Area (4C) 10.19 cm2 <=18.00 Report Signatures
--- NOTE | ~2024-07-08 | CT_ITS ---
Clinical Indication: Shortness of breath, lactic acidosis CT Scan of the Chest, Abdomen, and Pelvis with Contrast: Technique: Contiguous sections were acquired throughout the chest, abdomen, and pelvis after intraven ous administration of 100 cc of Omnipaque 350. Dose reduction technique was used on this scan by uti lizing automated exposure control and iterative reconstruction technique. The dose-length product (DL P) was 416.05 mGy-cm. Comparison: 06/01/2024 Findings: There is no evidence of any significant mediastinal, hilar or axillary lymphadenopathy. The mediastin al soft tissues appear normal. No aortic aneurysm or dissection. No pulmonary embolus evident. There is no evidence of pleural or pericardial effusion. Severe emphysema present. Stable 5 mm left upper lobe pulmonary nodule (axial image 21). The liver, spleen, pancreas, gallbladder, adrenals and kidneys are within normal limits, siphon bilat eral renal cysts. No evidence of aortic aneurysm or dissection. No lymphadenopathy. No bowel obstruction or bowel wall thickening. There is no evidence to suggest acute appendicitis. Urinary bladder is unremarkable. No pelvic mass evident. No ascites. There is streak artifact in the pelvis from bilateral hip orthopedic hardware. There is degenerative spondylosis of the spine. Impression: No acute abnormality. Severe emphysema. Stable 5 mm left upper lobe pulmonary nodule. Reviewed, dictated and finalized at [facility]. Impression: No acute abnormality. Severe emphysema. Stable 5 mm left upper lobe pulmonary nodule.
--- NOTE | ~2024-07-08 | XR_ITS ---
Portable chest x-ray Comparison: 07/03/2024 Clinical History: Shortness of breath Findings: Lungs are clear, without focal consolidation or pleural effusion. Possible COPD. Cardiome diastinal silhouette is stable. Bones and soft tissues are unremarkable. Impression: Clear lungs. Possible COPD. Reviewed, dictated and finalized at location . Impression: Clear lungs. Possible COPD.
--- NOTE | 2024-07-08 03:50 | ECG_ITS ---
Test Date: 2024-07-08 03:54:13 Measurements Intervals Almena Rate: 108 P: 0 ME: 0 QRS: 94 QRSD: 96 T: 0 QT: 331 QTc: 445 Interpretive Statements ATRIAL FIBRILLATION WITH RAPID VENTRICULAR RESPONSE WITH VENTRICULAR PREMATURE COMPLEX BORDERLINE ST-T WAVE ABNORMALITY- INFERIOR LEADS BASELINE ARTIFACT- I, II, III, AVR, AVL, AVF, V1-V6 ABNORMAL ECG Compared to ECG 07/03/2024 17:33:46 ATRIAL FIBRILLATION NOW PRESENT Electronically Signed On 07-08-2024 06:31:30 CDT by Tino Snowden D.O.
[2024-07-08] MEDS: IPRATROPIUM 0.5 MG/ALBUTEROL SULFATE 2.5 MG AMPUL.NEB 3 ML INHALATION ×6 (04:14→23:41)
[2024-07-08 06:00] LABS: Base Excess ABG -4.4 mEq/l (+/-2.0); Fractional Inspired Oxygen 28 %; HCO3 ABG 18.4 mEq/l (22.0-26.0); Oxygen Content ABG 17.3 %vol (16.0-22.0); Oxygen Saturation ABG 97.1 % (95.0-100.0); Oxyhemoglobin 95.9 % THb (90.0-100.0); PCO2 ABG 27.9 mmHg (35.0-45.0); PO2 ABG 87.7 mmHg (80.0-100.0); PO2 FiO2 Ratio Arterial Blood 3.13 %; Total Hemoglobin 12.8 g/dL (12.0-18.0); pH ABG 7.438 (7.350-7.450)
[2024-07-08 06:04] LABS: Basophils Percent Auto 0.1 % (0.2-1.2); Eosinophils Percent Auto 0.2 % (0-4.4); Hematocrit 37.1 % (42.0-52.0); Hemoglobin 12.3 g/dL (14.0-18.0); Immature Granulocyte Absolute 0.06 K/mm3 (0.00-0.031); Immature Granulocyte Percent A 0.5 % (0-0.5); Lymphocytes Absolute Auto 0.59 K/mm3 (0.9-3.2); Mean Corpuscular HGB Conc 33.2 g/dl (32-36); Mean Corpuscular Hemoglobin 31.1 pg (26-34); Mean Corpuscular Volume 93.7 fl (80-100); Mean Platelet Volume 10.1 fl (7.4-10.4); Monocytes Absolute Auto 0.4 K/mm3 (0.1-0.6); Monocytes Percent Auto 3.1 % (2.6-8.5); Neutrophils Absolute Auto 10.7 K/mm3 (1.3-6.7); Neutrophils Percent Auto 91.1 % (45.5-73.1); Platelet Count Result 200 k/mm3 (150-375); Red Blood Count 3.96 M/mm3 (4.6-6.20); Red Cell Distribution Width 13.2 % (11.5-14.5); White Blood Count 11.8 K/mm3 (4.5-10.0)
--- OUTSIDE RECORDS SUMMARY | 2024-07-08 06:04 | XMS_ITS | Clinical Summary ---
Author Organization [facility] Address [address] [place] [address] Care Team Providers Care Radio Presenter Name Role Phone Vikram Regalado MD Primary Care Provider [phone] Vikram Regalado MD Unavailable Naveen Wilcox MD Unavailable Meet Fulton MD Unavailable [phone] Naveen Wilcox MD Unavailable Allergies No known [...] 021 Assessment & Plan (04/08/2020 10:53 AM SERVICE PERSON): Patient has a history of peripheral vascular [...] 04/08/2020 Assessment & Plan (04/08/2020 10:53 AM SERVICE PERSON): After looking at the patient's history and [...] disease) Assessment & Plan (04/08/2020 10:54 AM SERVICE PERSON): Followed by his PCP. Patient does also [...] 06/15/2016 Assessment & Plan (04/08/2020 10:54 AM SERVICE PERSON): Followed by his PCP and on medications. [...] (#1) 2023 Medical Devices Implanted Type Area Maintenance Truck Driver Device Identifier Shelf Expiration Date Model / Serial / Lot Other - See Comments-08/02/2000 Implanted: 001 (Quantity not on file) Other - see comments Brain Rebecca Neurovascular Description:[place] Coil Wilkinson [employer] Nephew/Richco/Ort ho [id number] Intertan 10mm 20cm Trochanter 130d Short Nail Intramedullary - [id number] Implanted:Qty: 1 on 08/04/2018 by Mikaela Alvarenga MD at [facility] Right: Hip Iwlkinson & Nephew/Richco/O rtho [id number] / / Wilkinson & Nephew/Richco/Ort ho [id number] Intertan 4.5mm 100mm 95mm Lag Compression Integrated Interlocking - [id number] Implanted:Qty: 1 on 08/04/2018 by Mikaela Alvarenga MD at [facility] Right: Hip Wilkinson [employer] Nephew/Richco/O rtho [id number] / / Wilkinson & Nephew/Richco/Ort ho [id number] 5mm 32.5mm Low Profile Internal Hex Femur Screw Bone Trigen - [id number] Implanted:Qty: 1 on 08/04/2018 by Mikaela Alvarenga MD at [facility] Right: Hip Wilkinson & Nephew/Richco/O rtho [id number] / / Insurance RatePoint MEDICARE PPO HUMANA CHOICE MEDICARE PPO COMMERCIAL GENERIC BizeeBeeA CHOICE MEDICARE PPO WORKERS COMPENSATION GENERIC Advance Directives For more information, please contact: [phone] * Full Code (Latest Code Status on File) Date Activated Date Inactivated Comments 08/04/2018 2:47 PM 08/07/2018 9:21 PM * Full Code Date Activated Date Inactivated Comments 10/23/2017 12:21 PM 10/24/2017 3:38 PM Care Teams Radio Presenter Relationship Specialty Start Date End Date Vikram Regalado MD [address] [address] PCP - General Internal Medicine 04/06/20 Vikram Regalado MD [address] [address] 04/06/20 Naveen Wilcox MD [address] [address] Referring Physician Urology 10/21/17 Meet Fulton MD [address] [facility] # [address] [place] [address] Radiation Oncologist Radiation Oncology 11/13/17 Naveen Wilcox MD [address] [address] Referring Physician Urology 11/13/17
--- OUTSIDE RECORDS SUMMARY | 2024-07-08 06:04 | XMS_ITS | Encounter Summary ---
Author Organization [facility] Healthcare Address [address] [place] [address] Care Team Providers Care Air Pollution Analyst Name Role Phone Avelino Dunlap MD Primary Care Provider [phone] Vikram Regalado MD Primary Care Provider [phone] Vikram Regalado MD Unavailable Naveen Wilcox MD Unavailable Meet Fulton MD Unavailable [phone] Naveen Wilcox MD Unavailable Encounter Details Date Type Department Care Team (Late st Contact Info) Description 12/20/2018 Telephone [facility] Radiation Oncology [address] [facility] [place] [address] Jaswinder Benavides BS Social History Tobacco Use [...] on filedocumented in this encounter Care Teams Air Pollution Analyst Relationship Specialty Start Date End Date Avelino Dunlap MD PCP - General 08/09/17 04/05/20 Vikram Regalado MD [address] [place] [address] PCP - General Internal Medicine 04/06/20 Vikram Regalado MD [address] [place] [address] 04/06/20 Naveen Wilcox MD [address] [place] [address] Referring Physician Urology 10/21/17 [place] [address] [place] [address] [address] [place] [address] Radiation Oncologist Radiation Oncology 11/13/17 Naveen Wilcox MD [address] [place] [address] Referring Physician Urology 11/13/17 documented as of this encounter
--- OUTSIDE RECORDS SUMMARY | 2024-07-08 06:04 | XMS_ITS | CONTINUITY OF CARE DOCUMENT ---
Author Name smita marielleeunice Address Unknown Organization [facility] Address [address] [place] [address] [address] [place] [address] Phone [phone] Care Team Providers Care Ethernet Network Architect Name Role Phone Milena BORJAS, Derick Unavailable [phone] Avelino Dunlap MD Unavailable [phone] Avelino Dunlap MD Unavailable PROBLEMS Condition Status [...] In-person encounter Office Visit Derick Abbott MD [facility] C O P DHyperlipidemiaHypertensionPeripheral Vascular Disease - In-person encounter Office Visit Derick Abbott MD [facility] Chest painSinus bradycardiaHTN essentialCOPDPVD with claudicationDVTSleep [...] Take 1 tablet in evening daily Sandra Ryees SOCIAL HISTORY Date Observation Value Provider smoking/tobacco cess ation, patient education and counseling yes Derick Abbott MD social history E&M Marital Statu s: Thad ludwig: 1 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
--- OUTSIDE RECORDS SUMMARY | 2024-07-08 06:04 | XMS_ITS | Referral Summary ---
Author Organization [facility] Address [address] [place] [address] Care Team Providers Care Customer Success Director Name Role Phone Vikram Regalado MD Primary Care Provider [phone] Vikram Regalado MD Unavailable Naveen Wilcox MD Unavailable Meet Fulton MD Unavailable [phone] Naveen Wilcox MD Unavailable Allergies No known [...] 021 Assessment & Plan (04/08/2020 10:53 AM PLUSH CUTTER): Patient has a history of peripheral vascular [...] 04/08/2020 Assessment & Plan (04/08/2020 10:53 AM PLUSH CUTTER): After looking at the patient's history and [...] disease) Assessment & Plan (04/08/2020 10:54 AM PLUSH CUTTER): Followed by his PCP. Patient does also [...] 06/15/2016 Assessment & Plan (04/08/2020 10:54 AM PLUSH CUTTER): Followed by his PCP and on medications. [...] on file Medical Devices Implanted Type Area State Farm Agent Device Identifier Shelf Expiration Date Model / Serial / Lot Other - See Comments-08/02/2000 Implanted: 001 (Quantity not on file) Other - see comments Brain Gambr[place] Neurovascular Description:[place] Coil Wilkinson & Nephew/Richco/Ort ho [id number] Intertan 10mm 20cm Trochanter 130d Short Nail Intramedullary - [id number] Implanted:Qty: 1 on 08/04/2018 by Mikaela Alvarenga MD at [facility] Right: Hip Wilkinson & Nephew/Richco/O rtho [id number] / / Wilkinson & Nephew/Richco/Ort ho [id number] Intertan 4.5mm 100mm 95mm Lag Compression Integrated Interlocking - [id number] Implanted:Qty: 1 on 08/04/2018 by Mikaela Alvaregna MD at [facility] Right: Hip Wilkinson & Nephew/Richco/O rtho [id number] / / Wilkinson & Nephew/Richco/Ort ho [id number] 5mm 32.5mm Low Profile Internal Hex Femur Screw Bone Trigen - [id number] Implanted:Qty: 1 on 08/04/2018 by Mikaela Alvarenga MD at [facility] Right: Hip Wilkinson [employer] Nephew/Richco/O rtho [id number] / / Insurance HUMANA CHOICE MEDICARE PPO COMMERCIAL GENERIC HUMANA CHOICE MEDICARE PPO WORKERS COMPENSATION GENERIC Advance Directives For more information, please contact: [phone] * Full Code (Latest Code Status on File) Date Activated Date Inactivated Comments 08/04/2018 2:47 PM 08/07/2018 9:21 PM * Full Code Date Activated Date Inactivated Comments 10/23/2017 12:21 PM 10/24/2017 3:38 PM Care Teams Customer Success Director Relationship Specialty Start Date End Date Vikram Regalado MD [address] [place] [address] PCP - General Internal Medicine 04/06/20 Vikram Regalado MD [address] [place] [address] 04/06/20 Naveen Wilcox MD [address] [place] [address] Referring Physician Urology 10/21/17 Meet Fulton MD [address] [facility] # [address] [place] [address] Radiation Oncologist Radiation Oncology 11/13/17 Naveen Wilcox MD [address] [place] [address] Referring Physician Urology 11/13/17
--- OUTSIDE RECORDS SUMMARY | 2024-07-08 06:04 | XMS_ITS | Encounter Summary ---
Author Organization [facility] Healthcare Address [address] [place] [address] Care Team Providers Care Dispute Resolution Specialist Name Role Phone Avelino Dunlap MD Primary Care Provider [phone] Vikram Regalado MD Primary Care Provider [phone] Vikram Regalado MD Unavailable Naveen Wilcox MD Unavailable Meet Fulton MD Unavailable [phone] Naveen Wilcox MD Unavailable Encounter Details Date Type Department Care Team (Late st Contact Info) Description 04/15/[address] [facility] Radiation Oncology [address] [facility] [place] [address] Zain Berman MA Prostate cancer (HCC) (Primary [...] prostate documented in this encounter Care Teams Dispute Resolution Specialist Relationship Specialty Start Date End Date Avelino Dunlap MD PCP - General 08/09/17 04/05/20 Vikram Regalado MD [address] [place] [address] PCP - General Internal Medicine 04/06/20 Vikram Regalado MD [address] [place] [address] 04/06/20 Naveen Wilcox MD [address] [place] [address] Referring Physician Urology 10/21/17 Meet Fulton MD [address] [facility] # [address] [place] [address] Radiation Oncologist Radiation Oncology 11/13/17 Naveen Wilcox MD [address] [place] [address] Referring Physician Urology 11/13/17 documented as of this encounter
--- OUTSIDE RECORDS SUMMARY | 2024-07-08 06:04 | XMS_ITS | Clinical Summary ---
Author Organization [facility] Address [address] [place] [address] Phone Care Team Providers Care Client Account Manager Name Role Phone Vikram Regalado MD Primary Care Provider [phone] Allergies Active Allergy Reactions Criticality Noted Date [...] Medium Risk (1 of 4 - PCV) 09/24/1995 Influenza Vaccine (Season Ended) 2024 Insurance MEDICARE ADVANTAGE Care Teams Client Account Manager Relationship Specialty Start Date End Date Vikram Regalado MD [address] [place] [id number] PCP - General Family Medicine 06/10/20
--- OUTSIDE RECORDS SUMMARY | 2024-07-08 06:04 | XMS_ITS ---
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 Patient does also [...] 06/15/2016 Assessment & Plan (04/08/2020 10:54 AM WATER PURIFIER OPERATOR): Followed by his PCP and on medications. [...]
--- OUTSIDE RECORDS SUMMARY | 2024-07-08 06:04 | XMS_ITS | Encounter Summary ---
Author Organization [facility] Healthcare Address [address] [place] [address] Care Team Providers Care Application Designer Name Role Phone Avelino Dunlap MD Primary Care Provider [phone] Vikram Regalado MD Primary Care Provider [phone] Vikram Regalado MD Unavailable Naveen Wilcox MD Unavailable Meet Fulton MD Unavailable [phone] Naveen Wilcox MD Unavailable Encounter Details Date Type Department Care Team (Late st Contact Info) Description 11/13/2017 Documentation [facility] Radiation Oncology [address] [facility] [place] [address] Carlene Metzger Social History Tobacco Use Types [...] on filedocumented in this encounter Care Teams Application Designer Relationship Specialty Start Date End Date Avelino Dunlap MD PCP - General 08/09/17 04/05/20 Vikram Regalado MD [address] [place] [address] PCP - General Internal Medicine 04/06/20 Vikram Regalado MD [address] [place] [address] 04/06/20 Naveen Wilcox MD [address] [place] [address] Referring Physician Urology 10/21/17 Meet Fulton MD [address] [facility] [address] [place] [address] Radiation Oncologist Radiation Oncology 11/13/17 Naveen Wilcox MD [address] [place] [address] Referring Physician Urology 11/13/17 documented as of this encounter
[2024-07-08 06:06] LABS: Device NASAL CANNULA; Modified Allen's Test Pass; Site Drawn RIGHT RADIAL
--- NOTE | 2024-07-08 06:10 | ED_ITS ---
HPI - General Adult General Chief complaint: Shortness of Breath/Dyspnea Stated complaint: DIFFICULTY IN BREATHING Time Seen by Provider: 07/08/24 05:34 History of Present Illness HPI narrative: Patient is a 78-year-old gentleman presents emergency department with chief complaint of shortness of breath. Patient has prior history of COPD that is followed by pulmonology. The patient states that he was treated for a COPD exacerbation back in February reports that he has had symptoms have been worsening worse with exertion reports that he has had a cough is productive of yellow sputum patient states that he gets worse with ambulation patient reports subjective fevers and reports that he has tightness in his chest particularly when he is coughing Related Data Home Medications ?Medication ?Instructions ?Recorded ?Confirmed ?Last Taken ?Type acetaminophen 500 mg oral powder 500 mg PO Q6H PRN Pain (Scale 04/11/22 06/04/24 03/13/23 10:00 History packet (Tylenol Extra Strength) Score 4-6) Allergies Allergy/AdvReac Type Severity Reaction Status Date / Time No Known Allergies Allergy Verified 06/04/24 10:37 Review of Systems 2 Review of Systems: A 10 system review of systems was completed on the patient and is negative except for what is stated in the HPI. Nursing and ancillary documentation was reviewed. [facility] Past Medical History Medical History Early satiety Hematochezia COVID-14 Apr 2021. Received infusion therapy 04/22 Obesity (BMI 30.0-34.9) PVD (peripheral vascular disease) CKD (chronic kidney disease) Essential hypertension Dyslipidemia Marijuana use DOMINIC (obstructive sleep apnea) Hypertension DVT of lower extremity, bilateral Brain aneurysm Nicotine dependence SOB (shortness of breath) Tobacco abuse COPD (chronic obstructive pulmonary disease) Surgical History Surgical History Cataract Family History Family History Sibling Acute myocardial infarction Other Family history of malignant neoplasm Social History Social History Smoking packs per day: 1 Smoking cigarettes per day: 20.0 Years smoked: 61 Smoking pack-years: 61.00 Smoking status: Current every day smoker Tobacco type: cigarettes Second hand tobacco smoke exposure: No Alcohol intake: never Substance use: current Substance use type: marijuana Other substance usage details: rare marijuana use Last use: 12/2022 Do You Feel Safe in your Home?: Yes Lack of Transportation: No Lack of Food: Never True Current Housing: I Have Housing Concerned About Future Housing: No Difficulty Paying Gas/Electric Bills: No Difficulty Paying for Meds: No Currently Unemployed: No Education: Grade School Difficulty w/ Childcare or Family Care: No Living arrangements: with family Occupation/Education: retired 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 HEAD: Normocephalic, atraumatic. EYES: PERRLA and EOMI. ENT: Nares clear, no rhinorrhea or epistaxis. Mucous membranes moist. NECK: Supple. CHEST: Clear to auscultation. No respiratory distress. HEART: Regular rate and rhythm. No murmur heard. Normal peripheral pulses. ABDOMEN: Soft, nontender, nondistended, normal active bowel sounds. EXTREMITIES: Normal range of motion. No edema. SKIN: Warm, dry, no rash. NEURO: No focal deficits. Alert and oriented x3. PSYCH: Normal mood and affect. Course Vital Signs Vital signs: Vital Signs Temperature 36.7 C 07/08/24 03:44 Pulse Rate 121 H 07/08/24 03:44 Respiratory Rate 42 H 07/08/24 03:44 Blood Pressure 184/77 H 07/08/24 03:44 Pulse Oximetry 97 07/08/24 03:44 Oxygen Delivery Nasal Cannula 07/08/24 03:44 Oxygen Flow Rate 2 07/08/24 03:44 Temperature 36.7 C 07/08/24 03:44 Pulse Rate 92 07/08/24 06:05 Respiratory Rate 20 07/08/24 06:05 Blood Pressure 131/80 07/08/24 06:01 Pulse Oximetry 93 07/08/24 06:01 Oxygen Delivery Nasal Cannula 07/08/24 04:25 Oxygen Flow Rate 3 07/08/24 04:25 Fraction of Inspired Oxygen 30 04/14/25 04:25 Medical Decision Making [facility] Narrative Medical decision making narrative: Differential diagnosis includes COPD exacerbation, pneumonia, bronchitis, viral illness COVID flu and RSV were negative procalcitonin 0.1 troponin was negative lactic acid was 3.2 ABG showed pH 7.438 with pCO2 of 27.9 PO2 was 87 and oxygen sat was 95% CBC showed white count 11.8 Chest x-ray showed no focal infiltrate Patient received steroids and breathing treatments prior to arrival and is feeling much better Upon ambulatory trial the patient did maintain his saturation but increased his respiratory rate into the 30s due to this the patient will be admitted for observation for COPD exacerbation Vital Signs Vital Signs: Vital Signs Temperature 36.7 C 07/08/24 03:44 Pulse Rate 121 H 07/08/24 03:44 Respiratory Rate 42 H 07/08/24 03:44 Blood Pressure 184/77 H 07/08/24 03:44 Pulse Oximetry 97 07/08/24 03:44 Oxygen Delivery Nasal Cannula 07/08/24 03:44 Oxygen Flow Rate 2 07/08/24 03:44 Temperature 36.7 C 07/08/24 03:44 Pulse Rate 92 07/08/24 06:05 Respiratory Rate 20 07/08/24 06:05 Blood Pressure 131/80 07/08/24 06:01 Pulse Oximetry 93 07/08/24 06:01 Oxygen Delivery Nasal Cannula 07/08/24 04:25 Oxygen Flow Rate 3 07/08/24 04:25 Fraction of Inspired Oxygen 30 07/08/24 04:25 Lab Data 07/08/24 05:56 07/08/24 05:56 Labs: Lab Results 07/08/24 Range/Units 05:56 WBC 11.8 H (4.5-10.0) K/mm3 RBC 3.96 L (4.6-6.20) M/mm3 Hgb 12.3 L (14.0-18.0) g/dL Hct 37.1 L (42.0-52.0) % MCV 93.7 (80-100) fl MCH 31.1 (26-34) pg MCHC 33.2 (32-36) g/dl RDW 13.2 (11.5-14.5) % Plt Count 200 (150-375) k/mm3 MPV 10.1 (7.4-10.4) fl Immature Gran % (Auto) 0.5 (0-0.5) % Neut % (Auto) 91.1 H (45.5-73.1) % Lymph % (Auto) 5.0 L (18.3-44.2) % [place] % (Auto) 3.1 (2.6-8.5) % Eos % (Auto) 0.2 (0-4.4) % Baso % (Auto) 0.1 L (0.2-1.2) % Lymph # (Auto) 0.59 L (0.9-3.2) K/mm3 [place] # (Auto) 0.4 (0.1-0.6) K/mm3 Eos # (Auto) 0.0 (0-0.3) K/mm3 Baso # (Auto) 0.0 (0.0-0.1) K/mm3 Abs Immat Gran (auto) 0.06 H (0.00-0.031) K/mm3 Absolute Neuts (auto) 10.7 H (1.3-6.7) K/mm3 Absolute Nucleated RBC 0.000 (0.0-0.012) K/mm3 Nucleated RBC % 0.0 (0.0-0.2) % PT 14.1 (11.1-14.7) Seconds INR 1.0 APTT 32.7 (22.3-36.8) Seconds Sodium 139 (137-145) mmol/L Potassium 3.1 L (3.4-5.0) mmol/L Chloride 107 (98-107) mmol/L Carbon Dioxide 17 L (22-30) mmol/L Anion Gap 15 H (4-12) mmol/L BUN 19 (9-20) mg/dL Creatinine 1.16 (0.7-1.3) mg/dL Estim Creat Clear Calc 42 ml/min Estimated GFR > 60 (59 - ) Glucose 151 H (65-110) mg/dL Lactic Acid 3.2 H (0.7-2.0) mmol/L Calcium 9.1 (8.4-10.2) mg/dL Magnesium Pending Total Bilirubin 1.3 (0.2-1.3) mg/dL AST 33 (17-59) U/L ALT 22 (6-50) U/L Alkaline Phosphatase 127 H (38-126) U/L Troponin I < 0.012 (0.000-0.034) ng/mL NT-Pro-B Natriuret Pep Pending Total Protein 7.0 (6.3-8.2) g/dL Albumin 4.2 (3.5-5.1) g/dL Procalcitonin 0.1 ng/mL Influenza A (RT-PCR) Negative (Negative) Influenza B (RT-PCR) Negative (Negative) RSV (RT-PCR) Negative (Negative) SARS-CoV-2 RNA (RT-PCR) Negative (Negative) ABG Data ABG results: 07/08/24 05:58 Puncture Site Right radial ABG pH 7.438 ABG pCO2 27.9 L ABG pO2 87.7 ABG PO2/FiO2 Ratio 3.13 ABG HCO3 18.4 L ABG O2 Saturation 97.1 ABG O2 Content 17.3 ABG Base Excess -4.4 A-a Gradient 79.0 Oxyhemoglobin 95.9 Total Hemoglobin 12.8 O2 Delivery Device Nasal cannula O2 Liters/Min 2.0 FiO2 28 Discharge Plan Discharge Clinical Impression: Acute exacerbation of chronic obstructive pulmonary disease Patient Disposition: Still a Patient Condition: Stable Instructions: COPD (Chronic Obstructive Pulmonary Disease) (ED) Patient Language: [place] Prescriptions: No Action aspirin [Adult Low Dose Aspirin] 81 mg tablet,delayed release (DR/EC) 81 mg PO DAILY Qty: 90 0RF trazodone 50 mg tablet 50 mg PO QHS PRN (Reason: insomnia) Qty: 60 1RF Rx Instructions: start off with 50 mg nightly then may increase to 100mg nightly Tylenol Extra Strength 500 mg powder in packet 500 mg PO Q6H PRN (Reason: Pain (Scale Score 4-6)) albuterol sulfate [Ventolin HFA] 90 mcg/actuation HFA aerosol inhaler 1 - 2 inh INHALATION Q4-6H PRN (Reason: shortness of breath or wheezing) Qty: 8.5 2RF Trelegy Ellipta 100-62.5-25 mcg blister with device See Rx Instructions .ROUTE .COMPLEX Qty: 60 5RF Dose Instruction: INHALE 1 PUFF BY MOUTH DAILY. RINSE MOUTH AND SPIT AFTER EACH USE Rx Instructions: INHALE 1 PUFF BY MOUTH DAILY. RINSE MOUTH AND SPIT AFTER EACH USE losartan 100 mg tablet See Rx Instructions .ROUTE .COMPLEX Qty: 45 0RF Dose Instruction: TAKE 1/2 TABLET BY MOUTH DAILY Rx Instructions: TAKE 1/2 TABLET BY MOUTH DAILY rosuvastatin 20 mg tablet See Rx Instructions .ROUTE .COMPLEX Qty: 90 0RF Dose Instruction: TAKE 1 TABLET BY MOUTH DAILY Rx Instructions: TAKE 1 TABLET BY MOUTH DAILY tamsulosin 0.4 mg capsule See Rx Instructions .ROUTE .COMPLEX Qty: 90 0RF Dose Instruction: TAKE 1 CAPSULE BY MOUTH DAILY Rx Instructions: TAKE 1 CAPSULE BY MOUTH DAILY amlodipine 5 mg tablet See Rx Instructions .ROUTE .COMPLEX Qty: 90 0RF Dose Instruction: TAKE 1 TABLET BY MOUTH DAILY Rx Instructions: TAKE 1 TABLET BY MOUTH DAILY hydrocodone-acetaminophen 5-325 mg tablet 1 tablet PO Q6H PRN (Reason: pain) Qty: 60 0RF roflumilast [Daliresp] 500 mcg tablet 500 mcg PO DAILY Qty: 30 5RF Follow-up/Referrals: Jackelyn Radford APRN [Primary Care Provider] - Time of Disposition: 07:16
[2024-07-08 06:18] LABS: Alanine Aminotransferase 22 U/L (6-50); Albumin Level 4.2 g/dL (3.5-5.1); Alkaline Phosphatase 127 U/L (38-126); Anion Gap 15 mmol/L (4-12); Aspartate Amino Transferase 33 U/L (17-59); Bilirubin,Total 1.3 mg/dL (0.2-1.3); Blood Urea Nitrogen 19 mg/dL (9-20); Calcium 9.1 mg/dL (8.4-10.2); Carbon Dioxide 17 mmol/L (22-30); Chloride 107 mmol/L (98-107); Estimated CRCL calculation 42 ml/min; Estimated Glomerular Filt Rate > 60; Glucose 151 mg/dL (65-110); Potassium 3.1 mmol/L (3.4-5.0); Sodium 139 mmol/L (137-145)
[2024-07-08 06:19] LABS: Lactic Acid Reflex 3.2 mmol/L (0.7-2.0)
[2024-07-08 06:22] LABS: Prothrombin Time 14.1 Seconds (11.1-14.7)
[2024-07-08 06:23] LABS: Partial Thromboplastin Time 32.7 Seconds (22.3-36.8)
[2024-07-08 06:37] LABS: Procalcitonin 0.1 ng/mL
[2024-07-08 06:41] LABS: Influenza A QL RT-PCR Negative (Negative); Influenza B QL RT-PCR Negative (Negative); RSV RNA, RT-PCR Negative (Negative); SARS-CoV-2 RNA PCR Negative (Negative)
[2024-07-08 06:52] LABS: Troponin I < 0.012 ng/mL (0.000-0.034)
--- NOTE | 2024-07-08 07:20 | PC.NURSE ---
This RN did walking pulse ox with pt. Pt maintained 92% while walking. Pts HR was 117 and pt was breathing 35-38 times per min. EDP Dr. Pfeiffer aware.
[2024-07-08] MEDS: methylPREDNISolone SOD SUCC 125 MG VIAL 60 MG IV PUSH ×2 (07:36→14:14)
[2024-07-08 07:45] LABS: NT Pro B Type Natriuretic Pept 534 pg/mL (19.9-100)
--- NOTE | 2024-07-08 07:55 | PC.NURSE ---
0754 Attempted to call for questions, Jackelyn from [address] [place] [address] states the RN has not gotten the SBAR yet and they would call back.
[2024-07-08 08:01] LABS: Reflex Lactic Acid Yes or No Add Lactic
[2024-07-08 08:02] LABS: Magnesium 1.7 mg/dL (1.6-2.3)
[2024-07-08 08:23] LABS: Add Urine Microscopic? YES; Appearance Urine Clear (Clear); Bacteria Urine None Seen /hpf; Bilirubin Urine Negative (Negative); Blood Urine Negative (Negative); Color Urine Dark Yellow (Yellow); Glucose Urine UA Negative (Negative); Hyaline Casts Urine Present /lpf; Ketones Urine 1+ mg/dL (Negative); Leukocyte Esterase Ur Negative LEU/UL (Negative); Need Manual Microscopic Reviewed; Nitrate Urine Negative (Negative); Protein Urine 3+ mg/dL (Negative); RBC Urine 0-2 /hpf (0-2); Specific Grav Ur 1.021 (1.001-1.035); Squamous Epithelial Cell Urine None Seen /hpf (Few); Urobilinogen Urine 0.2 mg/dL (<2.0); WBC Urine 0-5 /hpf (0-3)
--- NOTE | 2024-07-08 08:55 | ADMGEN ---
This patient, Reji Briceno, was admitted to Medical Room 249-01. Patient/family oriented to hospital policies and general routines including ID bracelet, bed and alarms, visiting hours, pain management, procedures, bathroom and other care routines, personal items, smoking policy, room service/diet, and visiting hours. Information on how to activate the Rapid Response Team has been discussed. Patient/Family are encouraged to report perceived risks to care and to ask questions if they do not understand what they are told or what they should do.
[2024-07-08 09:43] LABS: Lactic Acid 7.3 mmol/L (0.7-2.0)
[2024-07-08] MEDS: POTASSIUM CHLORIDE 20 MEQ ER TABLET 60 MEQ PO (10:08)
[2024-07-08] MEDS: SODIUM CHLORIDE 0.9% IV 250 ML 100 ML IV CONT (10:08)
[2024-07-08] MEDS: CEFEPIME 2 GM/NS 50 ML 2 GM/50 ML BAG IVPB ×2 (10:23→22:14)
[2024-07-08 11:33] LABS: MRSA (PCR) NOT DETECTED (NOT DETECTE)
--- NOTE | 2024-07-08 11:33 | ECG_ITS ---
Test Date: 2024-07-08 12:46:50 Measurements Intervals [place] Rate: 95 P: 69 [place]: 180 QRS: 83 QRSD: 94 T: 40 QT: 377 QTc: 474 Interpretive Statements SINUS RHYTHM WITH FREQUENT VENTRICULAR PREMATURE COMPLEXES BASELINE ARTIFACT- I, II, III, AVR, AVL, AVF, V1-V6 ABNORMAL ECG Compared to ECG 07/08/2024 03:54:13 Atrial fibrillation no longer present Electronically Signed On 07-08-2024 12:53:14 CDT by Tino Snowden D.O.
[2024-07-08] MEDS: LORazepam INJ (*CRX) 2 MG/ML VIAL 0.5 MG IV PUSH (11:56)
[2024-07-08] MEDS: METOPROLOL TARTRATE INJ 5 MG/5 ML VIAL 2.5 MG IV PUSH (11:57)
[2024-07-08] MEDS: SODIUM CHLORIDE 0.9% IV 250 ML 999 ML IV CONT (12:00)
[2024-07-08] MEDS: DOXYCYCLINE 100 MG/NS 100 ML 100 MG/100 ML BAG IVPB ×2 (12:32→22:55)
--- NOTE | 2024-07-08 12:40 | PM.IMHP ---
H&P: HPI History of Present Illness Date/Time: 07/08/24 14:00 Chief Complaint: Shortness of breath. Narrative: This is a pleasant 78-year-old male with history of tobacco abuse since the of 13 (quit 05/22/2024), chronic obstructive pulmonary disease, obstructive sleep apnea on CPAP, deep venous thrombosis, and hypertension who presented to the emergency department via EMS from home with complaints of shortness of breath. Prior to January 2024, he was able to ?do anything that I wanted to? and was not limited by his breathing. Just before he developed a sinus infection with a cough and sputum production, reportedly found to have RSV. Several weeks later he was still not feeling better and was prescribed a Z-Andrea and prednisone and he felt better for couple of days. Unfortunately he is still not back to baseline. He continues to have frequent coughing jags and a cough which is productive of creamy, white colored phlegm. He wheezes frequently and has been using his rescue inhaler much more often than is prescribed with lesser and lesser benefit. Additionally he complains of decreased appetite which he attributes to feeling short of breath with eating, chest tightness associated with the increased work of breathing, and frequent feelings of lightheadedness and dizziness when he cannot get his breath. He has noticed some mild swelling in his ankles and endorses orthopnea. The last couple of days he has had some loose stools. Today he felt as though he was going to pass out from the shortness of breathe and he came in for evaluation. He denies fever, sweats, syncope, sinus congestion, sore throat, calf pain, pleuritic pain, palpitations, and vomiting. He also denies epigastric and abdominal pain, bloating, belching, melena, and hematochezia. He was given a nebulizer treatment and methylprednisolone 125 mg per EMS en route to the hospital. In the ED: Vital signs on arrival include a blood pressure of 184/77, pulse 127, respiratory rate 29, SpO2 97% on 2 L. labs are significant for WBC count of 11.8, hemoglobin 12.3, potassium 3.1, carbon dioxide 17, anion gap 15, glucose 151, lactic acid 3.2, troponin less than 0.012, proBNP 534, procalcitonin 0.1. ABG showed a pH of 7.438, pCO2 27.9, PO2 87.7, HC03 18.4. Urinalysis was positive for 3+ protein 1+ ketones. He was negative for influenza, RSV, and COVID. CTA of the chest, abdomen, and pelvis showed no acute abnormality, severe emphysema, and a stable 5 mm left upper lobe nodule. EKG showed rapid atrial fibrillation. Cefepime 2 g, doxycycline 100 mg, DuoNeb, and metoprolol tartrate 2.5 mg IV were given in the ED. He is now back in a sinus rhythm. Review of Systems Review of Systems: 12 systems were reviewed and are negative except for as per HPI. [facility] Past Medical History Medical History (Updated 07/08/24 @ 16:49 by Verónica Galo PA-C) Chronic pain Left upper lobe pulmonary nodule Cerebrovascular accident Gastroesophageal reflux disease Chronic kidney disease, stage 3 Prostate cancer status post radiation seed implantation Osteoarthritis Normal pressure hydrocephalus Deep venous thrombosis Chronic obstructive pulmonary disease Obstructive sleep apnea on CPAP Peripheral vascular disease COVID-14 Apr 2021. Received infusion therapy 04/22 Essential hypertension Dyslipidemia Marijuana use Brain aneurysm status post endovascular coil Nicotine dependence Surgical History Surgical History (Updated 07/08/24 @ 14:04 by Verónica Galo PA-C) History of total left hip arthroplasty History of inguinal hernia repair History of vascular surgery patient had what sounds like thrombectomy of lower extremities due to extensive DVTs History of cataract extraction Family History Family History Sibling Acute myocardial infarction Other Family history of malignant neoplasm Social History Social History (Updated 07/08/24 @ 14:06 by Verónica Galo PA-C) Social History: Surrogate medical decision maker: Lissette Briceno, spouse. Code status: Full code. Smoking packs per day: 1 Smoking cigarettes per day: 20.0 Years smoked: 61 Smoking pack-years: 61.00 Smoking status: Former smoker Tobacco type: cigarettes Second hand tobacco smoke exposure: No Alcohol intake: never Substance use: current Substance use type: marijuana Do You Feel Safe in your Home?: Yes Lack of Transportation: No Lack of Food: Never True Current Housing: I Have Housing Concerned About Future Housing: No Difficulty Paying Gas/Electric Bills: No Difficulty Paying for Meds: No Currently Unemployed: No Education: Grade School Difficulty w/ Childcare or Family Care: No Living arrangements: with family Additional living arrangements comments: Lives with spouse in [place]. 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 Spiritual care concerns: No Agree to blood products: Yes Meds Home Medications and Allergies Home Medications ?Medication ?Instructions ?Recorded ?Confirmed ?Type acetaminophen 500 mg oral powder 500 mg PO Q6H PRN Pain (Scale 04/11/22 07/08/24 History packet (Tylenol Extra Strength) Score 4-6) aspirin 81 mg tablet,delayed 81 mg PO DAILY #90 tabs 09/22/22 07/08/24 Rx release (Adult Low Dose Aspirin) fluticasone fur. 100 mcg-umeclid See Rx Instructions .Route 02/06/24 07/08/24 Rx 62.5 mcg-vilant 25 mcg .COMPLEX #60 ea inhalat.powder (Trelegy Ellipta) losartan 100 mg tablet See Rx Instructions .Route 02/15/24 07/08/24 Rx .COMPLEX #45 tabs amlodipine 5 mg tablet See Rx Instructions .Route 05/13/24 07/08/24 Rx .COMPLEX #90 tabs rosuvastatin 20 mg tablet See Rx Instructions .Route 05/13/24 07/08/24 Rx .COMPLEX #90 tabs tamsulosin 0.4 mg capsule See Rx Instructions .Route 05/13/24 07/08/24 Rx .COMPLEX #90 caps albuterol sulfate 90 mcg/actuation 1 - 2 inh inhalation Q4-6H PRN 05/22/24 07/08/24 Rx aerosol inhaler (Ventolin HFA) shortness of breath or wheezing #8.5 grams hydrocodone 5 mg-acetaminophen 325 1 tablet PO Q6H PRN pain #60 tabs 06/05/24 07/08/24 Rx mg tablet roflumilast 500 mcg tablet 500 mcg PO DAILY #30 tabs 06/20/24 07/08/24 Rx (Daliresp) trazodone 50 mg tablet 50 mg PO QHS PRN insomnia 07/08/24 07/08/24 History Allergies Allergy/AdvReac Type Severity Reaction Status Date / Time No Known Allergies Allergy Verified 06/04/24 10:37 Vital Signs Vital Signs - 24 hr 07/08/24 03:44 07/08/24 03:49 07/08/24 03:53 Temperature 98.1 F Pulse Rate 121 H 127 H 108 H Respiratory Rate 42 H 29 H Blood Pressure 184/77 H 184/77 H Pulse Oximetry 97 97 Oxygen Delivery Nasal Cannula Oxygen Flow Rate 2 Fraction of Inspired Oxygen 07/08/24 03:53 07/08/24 03:53 07/08/24 04:01 Temperature Pulse Rate 103 H 109 H Respiratory Rate 25 H 27 H Blood Pressure 184/77 H 140/72 Pulse Oximetry 100 99 98 Oxygen Delivery Nasal Cannula Oxygen Flow Rate 2 Fraction of Inspired Oxygen 07/08/24 04:16 07/08/24 04:16 07/08/24 04:25 Temperature Pulse Rate 103 H 86 Respiratory Rate 27 H 22 H Blood Pressure 100/86 Pulse Oximetry 98 99 Oxygen Delivery Nasal Cannula Oxygen Flow Rate 3 Fraction of Inspired Oxygen 30 07/08/24 04:29 07/08/24 04:29 07/08/24 04:31 Temperature Pulse Rate 99 96 80 Respiratory Rate 21 H 16 25 H Blood Pressure 100/86 118/66 Pulse Oximetry 98 98 Oxygen Delivery Oxygen Flow Rate Fraction of Inspired Oxygen 07/08/24 04:46 07/08/24 05:01 07/08/24 05:16 Temperature Pulse Rate 91 95 105 H Respiratory Rate 20 25 H 26 H Blood Pressure 133/56 L 139/77 153/78 H Pulse Oximetry 99 98 97 Oxygen Delivery Oxygen Flow Rate Fraction of Inspired Oxygen 07/08/24 05:31 07/08/24 05:46 07/08/24 05:58 Temperature Pulse Rate 98 97 92 Respiratory Rate 34 H 23 H 20 Blood Pressure 117/71 121/63 Pulse Oximetry 97 97 Oxygen Delivery Oxygen Flow Rate Fraction of Inspired Oxygen 07/08/24 06:01 07/08/24 06:05 07/08/24 07:00 Temperature Pulse Rate 100 92 Respiratory Rate 17 20 Blood Pressure 131/80 Pulse Oximetry 93 94 Oxygen Delivery Room Air Oxygen Flow Rate Fraction of Inspired Oxygen 07/08/24 07:19 07/08/24 08:03 07/08/24 08:03 Temperature Pulse Rate 117 H 97 Respiratory Rate 35 H 18 Blood Pressure 132/72 Pulse Oximetry 92 96 Oxygen Delivery Room Air Oxygen Flow Rate Fraction of Inspired Oxygen 21 07/08/24 08:08 07/08/24 09:28 07/08/24 09:55 Temperature Pulse Rate 94 100 108 H Respiratory Rate 20 22 H 32 H Blood Pressure 145/63 H 140/57 L Pulse Oximetry 98 96 Oxygen Delivery Oxygen Flow Rate Fraction of Inspired Oxygen 07/08/24 11:02 Temperature Pulse Rate 80 Respiratory Rate 18 Blood Pressure Pulse Oximetry 97 Oxygen Delivery Autopap Oxygen Flow Rate Fraction of Inspired Oxygen Exam Narrative: General: Nontoxic-appearing gentleman sitting up in bed. On my arrival to the room, he was ambulating with the aid from the bathroom back to bed. It took him a good 10 minutes to catch his breath with stable oxygen saturations. Weight: 84 kg. BMI: 36.2. HEENT: PERRL, EOMI. Sclera anicteric. Tacky mucous membranes. Neck: Supple. No lymphadenopathy or jugular venous distention. Respiratory: Tachypneic, speaking in 2 to 3 word sentences after ambulating from the bathroom back to bed. After approximately 10 minutes he was speaking in 5 to 6 word sentences. Occasional cough. Lung sounds are diminished throughout with end-expiratory wheezing. Cardiovascular: Regular rate and rhythm with S1-S2. Gastrointestinal: Abdomen is soft, nontender, and nondistended with positive bowel sounds. No guarding or rebound tenderness. Skin: Warm and dry. Normal capillary refill. Extremities: No cyanosis, clubbing, or significant edema. Radial and pedal pulses intact. Negative Fela sign. Neurological: Alert. Cranial nerves 2-12 are grossly intact. No gross focal deficits to casual conversation. Psychiatric: Pleasant and cooperative with normal mood and affect. Judgment and insight intact. H&P: Results Labs Labs: Short CBC 07/08/24 Range/Units 05:56 WBC 11.8 H (4.5-10.0) K/mm3 Hgb 12.3 L (14.0-18.0) g/dL Hct 37.1 L (42.0-52.0) % Plt Count 200 (150-375) k/mm3 BMP 07/08/24 05:56 Sodium 139 Potassium 3.1 L Chloride 107 Carbon Dioxide 17 L BUN 19 Creatinine 1.16 Glucose 151 H Calcium 9.1 Cardiac Enzymes 07/08/24 Range/Units 05:56 Troponin I < 0.012 (0.000-0.034) ng/mL Liver Function 07/08/24 Range/Units 05:56 Total Bilirubin 1.3 (0.2-1.3) mg/dL AST 33 (17-59) U/L ALT 22 (6-50) U/L Alkaline Phosphatase 127 H (38-126) U/L Albumin 4.2 (3.5-5.1) g/dL Urine 07/08/24 Range/Units 07:50 Urine Color Dark yellow (Yellow) Urine Appearance Clear (Clear) Urine pH 5.0 (5.0-9.0) Ur Specific [place] 1.021 (1.001-1.035) Urine Protein 3+ H (Negative) mg/dL Urine Glucose (UA) Negative (Negative) mg/dL Impressions Chest X-Ray 07/08/24 06:53 Impression: Clear lungs. Possible COPD. Chest/Abdomen/Pelvis CTA 07/08/24 12:28 Impression: No acute abnormality. Severe emphysema. Stable 5 mm left upper lobe pulmonary nodule. Assessment and Plan Assessment and plan (1) Acute exacerbation of chronic obstructive pulmonary disease: Code(s): J44.1 - Chronic obstructive pulmonary disease with (acute) exacerbation Status: Acute (2) Atrial fibrillation: Code(s): I48.91 - Unspecified atrial fibrillation Status: Acute (3) Lactic acidosis: Code(s): E87.20 - Acidosis, unspecified Status: Acute (4) Essential hypertension: Code(s): I10 - Essential (primary) hypertension Status: Acute (5) Chronic kidney disease, stage 3: Code(s): N18.30 - Chronic kidney disease, stage 3 unspecified Status: Acute (6) Left upper lobe pulmonary nodule: Code(s): R91.1 - Solitary pulmonary nodule Status: Acute (7) Obstructive sleep apnea on CPAP: Code(s): G47.33 - Obstructive sleep apnea (adult) (pediatric) Status: Acute (8) Hypokalemia: Code(s): E87.6 - Hypokalemia Status: Acute Plan The patient presented to the emergency department for evaluation of increasing shortness of breath, cough, and wheezing for quite some time though worse today as detailed in HPI. Labs, imaging, EKG, and all reports were personally reviewed. Clinically he has a COPD exacerbation and has been started on scheduled bronchodilators, steroids, and antibiotics. On arrival to the ED, he was in rapid atrial fibrillation but converted to a normal sinus rhythm after receiving metoprolol 2.5 mg IV. This is a new diagnosis for him and his [id number] is at least 4. Cardiology recommends starting apixaban and a 30 day event monitor on discharge to evaluate burden of atrial fibrillation. An echocardiogram is pending. Initial lactic acid level was 3.2 and a repeat level increased to 7.3. He was given 250 mL normal saline by the admitting physician due to concerns for possible heart failure and level is trending down, now 4.7. The etiology of his significant lactic acidosis is not entirely clear. He was in rapid atrial fibrillation on arrival but that seemed to be brief. He has been normotensive and without significant hypoxia. Anion gap is 15 and ABG shows a compensated respiratory alkalosis. His abdominal exam is benign and he is nontoxic in appearance. He has been using his rescue inhaler ?much more than he should? which could be playing a factor. 1+ ketones noted in urine, likely due to poor appetite recently; he is not diabetic with a random glucose this morning of 151 after receiving methylprednisolone. I will give him a L of fluids now as he does look a bit dry on exam. Blood cultures have been obtained and are pending but sepsis seems unlikely. Renal function is stable on review of previous labs. Potassium will be replaced and monitored. Imaging shows a stable left upper lobe pulmonary nodule which can be monitored as an outpatient. CPAP will be provided for the patient to use while hospitalized. His home medications will be reviewed and resumed as appropriate. Findings and treatment plan were discussed with the patient and his spouse. Questions were solicited and answered to satisfaction. The patient's medical management will be taken over by the hospitalist team in a.m. Quality VTE Prophylaxis VTE prophylaxis: pharmacologic ordered The patient has been admitted under observation status. Hospitalist MIPS Advance Care Plan I have confirmed that the patient's Advanced Care Plan is present, code status is documented, or surrogate decision maker is listed in patient medical record.: Yes Medication Reconciliation I have utilized all available resources to obtain, update and review the patients current medications (includes all prescriptions, OTC, herbals, cannabis, and nutritional supplements).: Yes
[2024-07-08 13:14] LABS: Alveolar/Arterial O2 Gradient 82.1 mmHg; Base Excess ABG -6.6 mEq/l (+/-2.0); Fractional Inspired Oxygen 28 %; HCO3 ABG 16.8 mEq/l (22.0-26.0); Oxygen Content ABG 16.7 %vol (16.0-22.0); Oxygen Saturation ABG 96.6 % (95.0-100.0); Oxyhemoglobin 95.9 % THb (90.0-100.0); PCO2 ABG 27.5 mmHg (35.0-45.0); PO2 ABG 85.1 mmHg (80.0-100.0); PO2 FiO2 Ratio Arterial Blood 3.04 %; Total Hemoglobin 12.3 g/dL (12.0-18.0); pH ABG 7.403 (7.350-7.450)
[2024-07-08 13:15] LABS: Device NASAL CANNULA; Modified Allen's Test Pass; Site Drawn RIGHT RADIAL
[2024-07-08] MEDS: PERFLUTREN LIPID MICROSPHERES 1.5 ML VIAL DILUTED TO 10 ML TOTAL VOLUME IV PUSH (13:24)
[2024-07-08 13:58] LABS: Troponin I < 0.012 ng/mL (0.000-0.034)
[2024-07-08 14:49] LABS: Lactic Acid Reflex 4.7 mmol/L (0.7-2.0)
--- NOTE | 2024-07-08 15:25 | IVDEFINITY ---
Prior to administration of IV Definity the patient was educated on the risks and benefits of the imaging enhancing agent including potential adverse side effects. The patient verbalized understanding. Allergies were verified. No exclusion criteria were identified and at least one of the following inclusion criteria were met: 1) physician request, 2) patient technically difficult to image (per the [place] [employer] guidelines of two or more segments not discernable within the apical view), or 3) questionable left ventricular function. ?
--- NOTE | 2024-07-08 15:48 | P.CONPL_ITS ---
Assessment and Plan Assessment and plan (1) Acute exacerbation of chronic obstructive pulmonary disease: Code(s): J44.1 - Chronic obstructive pulmonary disease with (acute) exacerbation Status: Acute Assessment and Plan: GOLD grade 1 group E COPD. Patient is former tobacco user, quit 2 09/13/2024. PFTs on 08/19/2021 with an FEV1 of 1.94 L, 90% predicted, ratio 55% predicted, no bronchodilator response, normal lung volumes and a moderately decreased diffusing capacity that remains moderately decreased when adjusted for alveolar volume. He does not wear oxygen at home. He wears CPAP 16 for obstructive sleep apnea. 06/28/2024: patient says he has been sick for months and recently has worsening cough, shortness of breath and phlegm production. CTA scan of the chest shows No PE, severe apical predominant panlobular emphysema with no focal masses or consolidations. ABG on 2 L 7.4 . COVID, influenza, RSV RT PCR negative. currently on room air with saturations 94%. I believe patient does have a COPD exacerbation. No evidence of PE, fluid overload, ACS, and currently is back in sinus rhythm. there is no evidence of hypercarbic or hypoxemic respiratory failure. Plan: I will increase the patient's DuoNebs to q.4 hours. I will change him to Solu-Medrol 40 mg IV q.6. I will discontinue his trelegy 100 as he is on maximum doses of beta agonist and muscarinic antagonists with the DuoNebs q.4 hours. Patient has no focal infiltrates on a CT scan of the chest but agree with cefepime since he has received previous antibiotics and Doxycycline. Continue Daliresp 500 q.day. I will send urine Legionella, urine pneumococcal, mycoplasma IgM, respiratory pathogen panel looking for alternative infectious etiologies. I will place him on continuous pulse oximetry. I will order sputum culture. await echocardiogram results. Discussed with Verónica Galo, will follow with you. (2) DOMINIC (obstructive sleep apnea): Code(s): G47.33 - Obstructive sleep apnea (adult) (pediatric) Status: Acute Assessment and Plan: Patient has obstructive sleep apnea on CPAP 16 at home. He has not been able to wear his machine because of his respiratory difficulties the last 2-3 nights. Patient did not tolerate the hospital CPAP 10 last night. Plan: I have talked to the will bring his home CPAP machine to the hospital. The patient can attempt to wear this tonight if it is comfortable, otherwise will hold off on CPAP until he improves. History of Present Illness History of Present Illness Consult date: 07/08/24 Chief complaint: Acute exacerbation of COPD Narrative: 07/08/2024: This is a new pulmonary consult for COPD exacerbation and AFib with RVR. Patient is followed in the [facility] in last seen on 05/22/2024: 7 month follow-up regarding DOMINIC on CPAP and COPD. He is here today with his partner, Lissette. Hospitalized 03/13 - 03/14/23, treated for COPD exacerbation, RSV positive. Required supplemental oxygen initially, able to be weaned to room air prior to discharge. He has been sick since 2 weeks prior to Thanksgiving with MILIAN, cough, sputum yellow/green, wheezing, and some chest pains. He reports his grandchildren were sick as the time. He tested negative for COVID. PCP prescribed abx and steroid on 03/26 for COPD exacerbation. He felt this did help his symptoms but then he rebounded. He had a recent CXR that was clear. Today, he reports continued MILIAN walking 50ft, productive coughing discolored without blood, wheezing, and chest pains with coughing. He is maintained on Trelegy 100 daily and albuterol PRN. Rescue use 2-3x/week. He is compliant with CPAP and doing well with this. He smokes cigarettes 1ppd. Smokes marijuana occasionally, not every day for pain control. He plans to quit smoking today. plan: He did not like breztri. Continue trilogy 100 and p.r.n. albuterol. Start Daliresp. Start 250 a day for a month and then increase to 500 q.day. obstructive sleep apnea on CPAP 16 download shows excellent compliance, 100% nights used, average usage 6.7 hours a night. AHI 0.9. Low-dose CT scan scheduled 06/01/2024 06/01/2024: Low-dose CT scan with Lung rads 2, recommend follow-up in 12 months. Advanced emphysema. 4 mm nodule posterior lung apex new from prior exam. 4 mm irregular nodule in the right lung apex new from prior exam. Probably early cirrhotic changes of liver. 07/08/2024: Patient tells me he has been sick since . He did have RSV in February of 2024. He has received antibiotics previously. patient tells me he had his last cigarette 3 weeks ago and he has only had 1 cigarette since 05/22/2024. Currently patient tells me he has a cough, increased phlegm production and worsening dyspnea on exertion over the last 48 hours that prompted his emergency department visit. He denies any fever but felt chills with no sweats or diaphoresis. In the emergency department his white blood cell count was 11.8 with eosinophils 0.2%. His creatinine was 1.16, serum bicarbonate was 17, his COVID, influenza RSV RT PCR studies were negative. 2 L ABG 7.4 07/23/1987. Repeat on 2 L 7.. Patient has CT angiogram chest abdomen pelvis with no PE, severe apical predominant panlobular emphysema. His procalcitonin was 0.1. initial lactic acid was 3.2 approximately 3 hours later was 7.3. And 5-1/2 hours later was 4.7. His BNP 534 his troponin was negative. In the emergency department he had AFib RVR treated with metoprolol.. When I enter the room today was on 2 L nasal cannula saturations 97%. I decreased him to room air and over the next 12 minutes saturations remain 94% DATA 07/08/2024: Clinical Indication: Shortness of breath, lactic acidosis CT Scan of the Chest, Abdomen, and Pelvis with Contrast: Technique: Contiguous sections were acquired throughout the chest, abdomen, and pelvis after intravenous administration of 100 cc of Omnipaque 350. Dose reduction technique was used on this scan by utilizing automated exposure control and iterative reconstruction technique. The dose-length product (DLP) was 416.05 mGy-cm. Comparison: 06/01/2024 Findings: There is no evidence of any significant mediastinal, hilar or axillary lymphadenopathy. The mediastinal soft tissues appear normal. No aortic aneurysm or dissection. No pulmonary embolus evident. There is no evidence of pleural or pericardial effusion. Severe emphysema present. Stable 5 mm left upper lobe pulmonary nodule (axial image 21). The liver, spleen, pancreas, gallbladder, adrenals and kidneys are within normal limits, siphon bilateral renal cysts. No evidence of aortic aneurysm or dissection. No lymphadenopathy. No bowel obstruction or bowel wall thickening. There is no evidence to suggest acute appendicitis. Urinary bladder is unremarkable. No pelvic mass evident. No ascites. There is streak artifact in the pelvis from bilateral hip orthopedic hardware. There is degenerative spondylosis of the spine. Impression: No acute abnormality. Severe emphysema. Stable 5 mm left upper lobe pulmonary nodule. CXR 05/20/24 - No acute cardiopulmonary process. LDCT 04/26/23 - There is moderate to advanced emphysema. No pulmonary nodule evident. Alpha 1 genotype MM, normal. PFT 08/19/21 - Mild obstructive airway disease in the form of small airway disease with no response to bronchodilators on this testing.? Severely reduced lung diffusion capacity. 6m2 no O2 needed. PFT 11/24/17 moderate obstructive ventilatory defect with severe small airways disease.? No acute bronchodilator response.? Moderately decreased DLCO. Lexiscan stress 07/19/21 - negative 02/21/2024 through 05/20/2024: Patient is on CPAP 16. Usage days greater than or equal to 4 hours is 83%. Average usage days used is 6 hours and 46 minutes. AHI 0.9, apnea index 0.3, hypopnea index 0.7, median leak 3.4, 95th percentile leak 9.7, maximum leak 15.9. I interpret this download as good compliance, adequate pressures and low leak. Review of Systems 2 Constitutional: Constitutional: Reports no additional constitutional complaints Eyes: Eyes: Reports no additional eye complaints ENT: Reports system reviewed and no additional complaints, except as documented Cardiovascular: Cardiovascular: Reports no additional cardiovascular complaints Respiratory: Respiratory: Reports no additional respiratory complaints Gastrointestinal: Gastrointestinal: Reports no additional gastrointestinal complaints Musculoskeletal: Musculoskeletal: Reports no additional musculoskeletal complaints Neurologic: Reports system reviewed and no additional complaints, except as documented Psychiatric: Psychiatric: Reports no additional psychiatric complaints Endocrine: Endocrine: Reports no additional endocrine complaints Hematologic/Lymphatic: Hematologic/Lymphatic: Reports no additional hematologic/lymphatic complaints Allergic/Immunologic: Allergic/Immunologic: Reports no additional allergic/immunologic complaints [facility] Past Medical History Medical History (Updated 07/08/24 @ 16:23 by Verónica Galo PA-C) Chronic pain Left upper lobe pulmonary nodule Cerebrovascular accident Gastroesophageal reflux disease Chronic kidney disease, stage 3 Prostate cancer status post radiation seed implantation Osteoarthritis Normal pressure hydrocephalus Deep venous thrombosis Chronic obstructive pulmonary disease Obstructive sleep apnea on CPAP Peripheral vascular disease COVID-14 Apr 2021. Received infusion therapy 04/22 Essential hypertension Dyslipidemia Marijuana use Brain aneurysm status post endovascular coil Nicotine dependence Surgical History Surgical History (Updated 07/08/24 @ 14:04 by Verónica Galo PA-C) History of total left hip arthroplasty History of inguinal hernia repair History of vascular surgery patient had what sounds like thrombectomy of lower extremities due to extensive DVTs History of cataract extraction Family History Family History Sibling Acute myocardial infarction Other Family history of malignant neoplasm Social History Social History (Updated 07/08/24 @ 14:06 by Verónica Galo PA-C) Social History: Surrogate medical decision maker: Lissette Monterrosoy, spouse. Code status: Full code. Smoking packs per day: 1 Smoking cigarettes per day: 20.0 Years smoked: 61 Smoking pack-years: 61.00 Smoking status: Former smoker Tobacco type: cigarettes Second hand tobacco smoke exposure: No Alcohol intake: never Substance use: current Substance use type: marijuana Do You Feel Safe in your Home?: Yes Lack of Transportation: No Lack of Food: Never True Current Housing: I Have Housing Concerned About Future Housing: No Difficulty Paying Gas/Electric Bills: No Difficulty Paying for Meds: No Currently Unemployed: No Education: Grade School Difficulty w/ Childcare or Family Care: No Living arrangements: with family Additional living arrangements comments: Lives with spouse in [place]. 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 Spiritual care concerns: No Agree to blood products: Yes Meds Home Medications and Allergies Home Medications ?Medication ?Instructions ?Recorded ?Confirmed ?Type acetaminophen 500 mg oral powder 500 mg PO Q6H PRN Pain (Scale 04/11/22 07/08/24 History packet (Tylenol Extra Strength) Score 4-6) aspirin 81 mg tablet,delayed 81 mg PO DAILY #90 tabs 09/22/22 07/08/24 Rx release (Adult Low Dose Aspirin) fluticasone fur. 100 mcg-umeclid See Rx Instructions .Route 02/06/24 07/08/24 Rx 62.5 mcg-vilant 25 mcg .COMPLEX #60 ea inhalat.powder (Trelegy Ellipta) losartan 100 mg tablet See Rx Instructions .Route 02/15/24 07/08/24 Rx .COMPLEX #45 tabs amlodipine 5 mg tablet See Rx Instructions .Route 05/13/24 07/08/24 Rx .COMPLEX #90 tabs rosuvastatin 20 mg tablet See Rx Instructions .Route 05/13/24 07/08/24 Rx .COMPLEX #90 tabs tamsulosin 0.4 mg capsule See Rx Instructions .Route 05/13/24 07/08/24 Rx .COMPLEX #90 caps albuterol sulfate 90 mcg/actuation 1 - 2 inh inhalation Q4-6H PRN 05/22/24 07/08/24 Rx aerosol inhaler (Ventolin HFA) shortness of breath or wheezing #8.5 grams hydrocodone 5 mg-acetaminophen 325 1 tablet PO Q6H PRN pain #60 tabs 06/05/24 07/08/24 Rx mg tablet roflumilast 500 mcg tablet 500 mcg PO DAILY #30 tabs 06/20/24 07/08/24 Rx (Daliresp) trazodone 50 mg tablet 50 mg PO QHS PRN insomnia 07/08/24 07/08/24 History Allergies Allergy/AdvReac Type Severity Reaction Status Date / Time No Known Allergies Allergy Verified 06/04/24 10:37 Vital Signs Vital Signs - 24 hr 07/08/24 03:44 07/08/24 03:49 07/08/24 03:53 Temperature 36.7 C Pulse Rate 121 H 127 H 108 H Respiratory Rate 42 H 29 H Blood Pressure 184/77 H 184/77 H Pulse Oximetry 97 97 Oxygen Delivery Nasal Cannula Oxygen Flow Rate 2 Fraction of Inspired Oxygen 07/08/24 03:53 07/08/24 03:53 07/08/24 04:01 Temperature Pulse Rate 103 H 109 H Respiratory Rate 25 H 27 H Blood Pressure 184/77 H 140/72 Pulse Oximetry 100 99 98 Oxygen Delivery Nasal Cannula Oxygen Flow Rate 2 Fraction of Inspired Oxygen 07/08/24 04:16 07/08/24 04:16 07/08/24 04:25 Temperature Pulse Rate 103 H 86 Respiratory Rate 27 H 22 H Blood Pressure 100/86 Pulse Oximetry 98 99 Oxygen Delivery Nasal Cannula Oxygen Flow Rate 3 Fraction of Inspired Oxygen 30 07/08/24 04:29 07/08/24 04:29 07/08/24 04:31 Temperature Pulse Rate 99 96 80 Respiratory Rate 21 H 16 25 H Blood Pressure 100/86 118/66 Pulse Oximetry 98 98 Oxygen Delivery Oxygen Flow Rate Fraction of Inspired Oxygen 07/08/24 04:46 07/08/24 05:01 07/08/24 05:16 Temperature Pulse Rate 91 95 105 H Respiratory Rate 20 25 H 26 H Blood Pressure 133/56 L 139/77 153/78 H Pulse Oximetry 99 98 97 Oxygen Delivery Oxygen Flow Rate Fraction of Inspired Oxygen 07/08/24 05:31 07/08/24 05:46 07/08/24 05:58 Temperature Pulse Rate 98 97 92 Respiratory Rate 34 H 23 H 20 Blood Pressure 117/71 121/63 Pulse Oximetry 97 97 Oxygen Delivery Oxygen Flow Rate Fraction of Inspired Oxygen 07/08/24 06:01 07/08/24 06:05 07/08/24 07:00 Temperature Pulse Rate 100 92 Respiratory Rate 17 20 Blood Pressure 131/80 Pulse Oximetry 93 94 Oxygen Delivery Room Air Oxygen Flow Rate Fraction of Inspired Oxygen 07/08/24 07:19 07/08/24 08:03 07/08/24 08:03 Temperature Pulse Rate 117 H 97 Respiratory Rate 35 H 18 Blood Pressure 132/72 Pulse Oximetry 92 96 Oxygen Delivery Room Air Oxygen Flow Rate Fraction of Inspired Oxygen 21 07/08/24 08:08 07/08/24 09:28 07/08/24 09:55 Temperature Pulse Rate 94 100 108 H Respiratory Rate 20 22 H 32 H Blood Pressure 145/63 H 140/57 L Pulse Oximetry 98 96 Oxygen Delivery Oxygen Flow Rate Fraction of Inspired Oxygen 07/08/24 11:02 07/08/24 12:49 07/08/24 13:38 Temperature Pulse Rate 80 Respiratory Rate 18 Blood Pressure Pulse Oximetry 97 97 95 Oxygen Delivery Autopap Nasal Cannula Nasal Cannula Oxygen Flow Rate 2 2 Fraction of Inspired Oxygen 28 07/08/24 13:38 07/08/24 13:55 07/08/24 14:00 Temperature 37.1 C Pulse Rate 98 101 H 91 Respiratory Rate 28 H 24 H 28 H Blood Pressure 127/56 L Pulse Oximetry 100 Oxygen Delivery Oxygen Flow Rate Fraction of Inspired Oxygen Exam 2 Narrative: Relatively comfortable appearing on room air. Const: General: cooperative, healthy appearing and comfortable O rientation/consciousness: oriented to person, oriented to place and oriented to time HENMT: Head: normal to inspection Ears: hearing grossly normal bilaterally Eyes: General: appearance normal, both eyes and all related structures Neck: Neck: normal visual inspection Chest: Chest palpation & inspection: normal inspection of the chest Resp: Effort & Inspection: normal respiratory effort and able to speak in complete sentences Auscultation: no crackles, no rales, no rhonchi, wheezes and lung sounds not diminished Other: Expiratory wheezes bilaterally Cardio: Jugular venous distension: no JVD GI: Inspection: normal to inspection GI Palp: No abdominal tenderness Skin: General skin exam: normal color Neuro: General: oriented to person, oriented to place and oriented to time Extrem: General: normal to inspection and no edema Psych: Appearance: grossly normal Results Laboratory Findings 07/08/24 05:56 07/08/24 05:56 ABG, PT/INR, D-dimer: ABG ABG pH 7.403 (7.350-7.450) 07/08/24 13:09 ABG pCO2 27.5 mmHg (35.0-45.0) L 07/08/24 13:09 ABG pO2 85.1 mmHg (80.0-100.0) 07/08/24 13:09 ABG O2 Saturation 96.6 % (95.0-100.0) 07/08/24 13:09 PT/INR, D-dimer PT 14.1 Seconds (11.1-14.7) 07/08/24 05:56 INR 1.0 07/08/24 05:56 Abnormal lab findings: Abnormal Labs 07/08/24 07/08/24 07/08/24 05:56 05:58 07:50 WBC 11.8 H RBC 3.96 L Hgb 12.3 L Hct 37.1 L Neut % (Auto) 91.1 H Lymph % (Auto) 5.0 L Baso % (Auto) 0.1 L Lymph # (Auto) 0.59 L Abs Immat Gran (auto) 0.06 H Absolute Neuts (auto) 10.7 H ABG pCO2 27.9 L ABG HCO3 18.4 L Potassium 3.1 L Carbon Dioxide 17 L Anion Gap 15 H Glucose 151 H Lactic Acid 3.2 H Alkaline Phosphatase 127 H NT-Pro-B Natriuret Pep 534 H Urine Protein 3+ H Urine Ketones 1+ H 07/08/24 07/08/24 07/08/24 09:05 13:09 14:26 WBC RBC Hgb Hct Neut % (Auto) Lymph % (Auto) Baso % (Auto) Lymph # (Auto) Abs Immat Gran (auto) Absolute Neuts (auto) ABG pCO2 27.5 L ABG HCO3 16.8 L Potassium Carbon Dioxide Anion Gap Glucose Lactic Acid 7.3 H* 4.7 H* Alkaline Phosphatase NT-Pro-B Natriuret Pep Urine Protein Urine Ketones Diagnostic Findings Additional studies: ITS Impressions Chest X-Ray 07/08/24 06:53 Impression: Clear lungs. Possible COPD. Chest/Abdomen/Pelvis CTA 07/08/24 12:28 Impression: No acute abnormality. Severe emphysema. Stable 5 mm left upper lobe pulmonary nodule.
[2024-07-08 15:57] LABS: Anion Gap 14 mmol/L (4-12); Blood Urea Nitrogen 23 mg/dL (9-20); Calcium 9.1 mg/dL (8.4-10.2); Carbon Dioxide 16 mmol/L (22-30); Chloride 109 mmol/L (98-107); Estimated CRCL calculation 41 ml/min; Estimated Glomerular Filt Rate 60; Glucose 156 mg/dL (65-110); Potassium 4.2 mmol/L (3.4-5.0); Sodium 139 mmol/L (137-145)
--- NOTE | 2024-07-08 16:03 | P.CONCA_ITS ---
Assessment and Plan Assessment and plan (1) Atrial fibrillation: Code(s): I48.91 - Unspecified atrial fibrillation Status: Acute (2) PVD (peripheral vascular disease): Code(s): I73.9 - Peripheral vascular disease, unspecified Status: Acute (3) Dyslipidemia: Code(s): E78.5 - Hyperlipidemia, unspecified Status: Acute (4) Essential hypertension: Code(s): I10 - Essential (primary) hypertension Status: Acute (5) Benign hypertension with stage 3b chronic kidney disease: Code(s): I12.9 - Hypertensive chronic kidney disease with stage 1 through stage 4 chronic kidney disease, or unspecified chronic kidney disease; N18.32 - Chronic kidney disease, stage 3b Status: Acute Plan 78-year-old male with history of hypertension, hyperlipidemia, peripheral vascular disease, history of bilateral lower extremity DVT, obstructive sleep apnea on CPAP, COPD, CKD, cerebral aneurysm status post coiling admitted with shortness of breath secondary to COPD exacerbation. He was noted to have AFib with RVR and has since converted back to sinus rhythm with rates in the 90s. New onset AFib with RVR-most likely secondary to pulmonary disease -converted back to sinus rhythm with heart rates in the 90s -monitor on telemetry -troponin x3 negative -check electrolytes to keep K greater than 4 and Mg greater than 2 -check TSH and free T3, T4 -recommend TTE -CHADS2 Vasc score of 4 (age greater than 75 a is equal to 2 points, hypertension is equal to 1 point, PVD is equal to 1 point). Start anticoagulation with Eliquis p.o. 5 mg b.i.d. -event monitor for 30 days at discharge to evaluate burden of AFib -outpatient stress test after recovering from acute illness -outpatient Cardiology follow-up in 4 weeks post discharge Hypokalemia-potassium 3.1 at admission -replace potassium to keep K greater than 4 and Mg greater than 2 Hypertension -continue amlodipine 5 mg daily, losartan 100 mg daily Hyperlipidemia -continue rosuvastatin 20 mg daily PVD -continue aspirin 81 mg daily and rosuvastatin 20 mg daily Thank you for allowing us to participate in the care of Mr. Briceno. We will follow-up results of TTE. Cardiology will sign off. Please call us with any questions History of Present Illness History of Present Illness Consult date/time: 07/08/24 16:03 Reason For Visit: Acute exacerbation of COPD Narrative: 78-year-old male with history of tobacco abuse since the of 13 (quit 05/22/2024), COPD, DOMINIC on CPAP, history of lower extremity DVT, HTN, HLD, PVD, CKD, cerebral aneurysm status post coiling who presented via EMS with chief complaints of shortness of breath. He reports worsening shortness of breath which is associated with chest tightness, loss of appetite, lightheadedness, and dizziness. He cannot walk to his bathroom from his bed without becoming short of breath. He reports off and on cough productive of white sputum. He has wheezing which is not improving with his rescue inhaler. He reports ankle swelling and orthopnea. He reports loose stools for past couple of days. He reports some chest tightness/pain with swallowing about a week ago which has since resolved. On the day of admission he felt as if he was going to pass out and called EMS. He denies palpitations, presyncope, syncope, fever, chills, nausea, vomiting, abdominal pain. He was noted to have AFib with RVR and Cardiology was consulted for further recommendations. He converted back to sinus rhythm with rates in the 90s. No chest pain, palpitations, dizziness, lightheadedness at this time. He continues to feel short of breath. Workup: WBC: 58801 Potassium: 3.1 Creatinine: 1.18 Lactate: 3.2--7.3--4.7 Troponin: Negative BNP: 787--534 EKG: AFib with RVR with rate of 108. EKG: Sinus rhythm with rate of 95 Chest x-ray: no acute pathology CT chest: No acute abnormality. Severe emphysema. Stable 5 mm left upper lobe nodule. Review of Systems 2 Review of Systems: A complete review of systems was performed and negative other than those mentioned HPI [facility] Past Medical History Medical History (Updated 07/08/24 @ 16:23 by Verónica Galo PA-C) Chronic pain Left upper lobe pulmonary nodule Cerebrovascular accident Gastroesophageal reflux disease Chronic kidney disease, stage 3 Prostate cancer status post radiation seed implantation Osteoarthritis Normal pressure hydrocephalus Deep venous thrombosis Chronic obstructive pulmonary disease Obstructive sleep apnea on CPAP Peripheral vascular disease COVID-14 Apr 2021. Received infusion therapy 04/22 Essential hypertension Dyslipidemia Marijuana use Brain aneurysm status post endovascular coil Nicotine dependence Surgical History Surgical History (Updated 07/08/24 @ 14:04 by Verónica Galo PA-C) History of total left hip arthroplasty History of inguinal hernia repair History of vascular surgery patient had what sounds like thrombectomy of lower extremities due to extensive DVTs History of cataract extraction Family History Family History Sibling Acute myocardial infarction Other Family history of malignant neoplasm Social History Social History (Updated 07/08/24 @ 14:06 by Verónica Galo PA-C) Social History: Surrogate medical decision maker: Lissette Briceno, spouse. Code status: Full code. Smoking packs per day: 1 Smoking cigarettes per day: 20.0 Years smoked: 61 Smoking pack-years: 61.00 Smoking status: Former smoker Tobacco type: cigarettes Second hand tobacco smoke exposure: No Alcohol intake: never Substance use: current Substance use type: marijuana Do You Feel Safe in your Home?: Yes Lack of Transportation: No Lack of Food: Never True Current Housing: I Have Housing Concerned About Future Housing: No Difficulty Paying Gas/Electric Bills: No Difficulty Paying for Meds: No Currently Unemployed: No Education: Grade School Difficulty w/ Childcare or Family Care: No Living arrangements: with family Additional living arrangements comments: Lives with spouse in [place]. 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 Spiritual care concerns: No Agree to blood products: Yes Meds Home Medications and Allergies Home Medications ?Medication ?Instructions ?Recorded ?Confirmed ?Type acetaminophen 500 mg oral powder 500 mg PO Q6H PRN Pain (Scale 04/11/22 07/08/24 History packet (Tylenol Extra Strength) Score 4-6) aspirin 81 mg tablet,delayed 81 mg PO DAILY #90 tabs 09/22/22 07/08/24 Rx release (Adult Low Dose Aspirin) fluticasone fur. 100 mcg-umeclid See Rx Instructions .Route 02/06/24 07/08/24 Rx 62.5 mcg-vilant 25 mcg .COMPLEX #60 ea inhalat.powder (Trelegy Ellipta) losartan 100 mg tablet See Rx Instructions .Route 02/15/24 07/08/24 Rx .COMPLEX #45 tabs amlodipine 5 mg tablet See Rx Instructions .Route 05/13/24 07/08/24 Rx .COMPLEX #90 tabs rosuvastatin 20 mg tablet See Rx Instructions .Route 05/13/24 07/08/24 Rx .COMPLEX #90 tabs tamsulosin 0.4 mg capsule See Rx Instructions .Route 05/13/24 07/08/24 Rx .COMPLEX #90 caps albuterol sulfate 90 mcg/actuation 1 - 2 inh inhalation Q4-6H PRN 05/22/24 07/08/24 Rx aerosol inhaler (Ventolin HFA) shortness of breath or wheezing #8.5 grams hydrocodone 5 mg-acetaminophen 325 1 tablet PO Q6H PRN pain #60 tabs 06/05/24 07/08/24 Rx mg tablet roflumilast 500 mcg tablet 500 mcg PO DAILY #30 tabs 06/20/24 07/08/24 Rx (Daliresp) trazodone 50 mg tablet 50 mg PO QHS PRN insomnia 07/08/24 07/08/24 History Allergies Allergy/AdvReac Type Severity Reaction Status Date / Time No Known Allergies Allergy Verified 06/04/24 10:37 Vital Signs Vital Signs - 24 hr 07/08/24 03:44 07/08/24 03:49 07/08/24 03:53 Temperature 36.7 C Pulse Rate 121 H 127 H 108 H Respiratory Rate 42 H 29 H Blood Pressure 184/77 H 184/77 H Pulse Oximetry 97 97 Oxygen Delivery Nasal Cannula Oxygen Flow Rate 2 Fraction of Inspired Oxygen 07/08/24 03:53 07/08/24 03:53 07/08/24 04:01 Temperature Pulse Rate 103 H 109 H Respiratory Rate 25 H 27 H Blood Pressure 184/77 H 140/72 Pulse Oximetry 100 99 98 Oxygen Delivery Nasal Cannula Oxygen Flow Rate 2 Fraction of Inspired Oxygen 07/08/24 04:16 07/08/24 04:16 07/08/24 04:25 Temperature Pulse Rate 103 H 86 Respiratory Rate 27 H 22 H Blood Pressure 100/86 Pulse Oximetry 98 99 Oxygen Delivery Nasal Cannula Oxygen Flow Rate 3 Fraction of Inspired Oxygen 30 07/08/24 04:29 07/08/24 04:29 07/08/24 04:31 Temperature Pulse Rate 99 96 80 Respiratory Rate 21 H 16 25 H Blood Pressure 100/86 118/66 Pulse Oximetry 98 98 Oxygen Delivery Oxygen Flow Rate Fraction of Inspired Oxygen 07/08/24 04:46 07/08/24 05:01 07/08/24 05:16 Temperature Pulse Rate 91 95 105 H Respiratory Rate 20 25 H 26 H Blood Pressure 133/56 L 139/77 153/78 H Pulse Oximetry 99 98 97 Oxygen Delivery Oxygen Flow Rate Fraction of Inspired Oxygen 07/08/24 05:31 07/08/24 05:46 07/08/24 05:58 Temperature Pulse Rate 98 97 92 Respiratory Rate 34 H 23 H 20 Blood Pressure 117/71 121/63 Pulse Oximetry 97 97 Oxygen Delivery Oxygen Flow Rate Fraction of Inspired Oxygen 07/08/24 06:01 07/08/24 06:05 07/08/24 07:00 Temperature Pulse Rate 100 92 Respiratory Rate 17 20 Blood Pressure 131/80 Pulse Oximetry 93 94 Oxygen Delivery Room Air Oxygen Flow Rate Fraction of Inspired Oxygen 07/08/24 07:19 07/08/24 08:03 07/08/24 08:03 Temperature Pulse Rate 117 H 97 Respiratory Rate 35 H 18 Blood Pressure 132/72 Pulse Oximetry 92 96 Oxygen Delivery Room Air Oxygen Flow Rate Fraction of Inspired Oxygen 21 07/08/24 08:08 07/08/24 09:28 07/08/24 09:55 Temperature Pulse Rate 94 100 108 H Respiratory Rate 20 22 H 32 H Blood Pressure 145/63 H 140/57 L Pulse Oximetry 98 96 Oxygen Delivery Oxygen Flow Rate Fraction of Inspired Oxygen 07/08/24 11:02 07/08/24 12:49 07/08/24 13:38 Temperature Pulse Rate 80 Respiratory Rate 18 Blood Pressure Pulse Oximetry 97 97 95 Oxygen Delivery Autopap Nasal Cannula Nasal Cannula Oxygen Flow Rate 2 2 Fraction of Inspired Oxygen 07/08/24 13:38 07/08/24 13:55 07/08/24 14:00 Temperature 37.1 C Pulse Rate 98 101 H 91 Respiratory Rate 28 H 24 H 28 H Blood Pressure 127/56 L Pulse Oximetry 100 Oxygen Delivery Oxygen Flow Rate Fraction of Inspired Oxygen Exam 2 Narrative: General: Alert oriented x3, no acute distress Neck: Supple, no JVD Chest: Bilaterally clear to auscultation, no rales or rhonchi Cardiac: S1, S2 +, regular rate, regular rhythm, no murmurs or rubs Extremities: No pedal edema, no skin rash Neurologic: Alert and oriented x3, no focal neurological deficits Results Labs and Meds 07/08/24 05:56 07/08/24 15:38 Lab results: Cardiac Enzymes 07/08/24 07/08/24 Range/Units 05:56 09:05 AST 33 (17-59) U/L Troponin I < 0.012 < 0.012 (0.000-0.034) ng/mL Coagulation 07/08/24 Range/Units 05:56 PT 14.1 (11.1-14.7) Seconds APTT 32.7 (22.3-36.8) Seconds CBC 07/08/24 Range/Units 05:56 WBC 11.8 H (4.5-10.0) K/mm3 RBC 3.96 L (4.6-6.20) M/mm3 Hgb 12.3 L (14.0-18.0) g/dL Hct 37.1 L (42.0-52.0) % Plt Count 200 (150-375) k/mm3 Lymph # (Auto) 0.59 L (0.9-3.2) K/mm3 [place] # (Auto) 0.4 (0.1-0.6) K/mm3 Eos # (Auto) 0.0 (0-0.3) K/mm3 Baso # (Auto) 0.0 (0.0-0.1) K/mm3 Comprehensive Metabolic Panel 07/08/24 07/08/24 Range/Units 05:56 15:38 Sodium 139 139 (137-145) mmol/L Potassium 3.1 L 4.2 (3.4-5.0) mmol/L Chloride 107 109 H (98-107) mmol/L Carbon Dioxide 17 L 16 L (22-30) mmol/L BUN 19 23 H (9-20) mg/dL Creatinine 1.16 1.18 (0.7-1.3) mg/dL Glucose 151 H 156 H (65-110) mg/dL Calcium 9.1 9.1 (8.4-10.2) mg/dL AST 33 (17-59) U/L ALT 22 (6-50) U/L Alkaline Phosphatase 127 H (38-126) U/L Total Protein 7.0 (6.3-8.2) g/dL Albumin 4.2 (3.5-5.1) g/dL Intake and Output 07/08/24 07/08/24 07/08/24 07:59 15:59 23:59 Intake Total 240 Output Total 300 Balance -60 Intake: Oral 240 Output: Urine 300 Patient Weight 07/08/24 23:59 Weight 84 kg EKG Interpretation EKG shows: tachycardia
[2024-07-08 16:28] LABS: Salicylate < 1.0 mg/dL (2-20)
[2024-07-08] MEDS: LACTATED RINGERS 1,000 ML 85 ML IV CONT (17:29)
[2024-07-08] MEDS: methylPREDNISolone SOD SUCC 40 MG VIAL IV PUSH ×2 (17:30→23:03)
[2024-07-08] MEDS: traZODone HCL 50 MG TABLET PO (22:14)
[2024-07-08] MEDS: APIXABAN 5 MG TABLET PO (22:14)
[2024-07-08] MEDS: HYDROcodone/acetaminophen (*CRX) 5-325 MG TABLET 1 TAB PO (23:02)
[2024-07-09] VITALS (22 sets, daily range): BP systolic 127–149; BP diastolic 51–71; PULSE 71–113; RESP 18–22; TEMP 36.3–37.1; O2SAT 87–97
[2024-07-09] MEDS: IPRATROPIUM 0.5 MG/ALBUTEROL SULFATE 2.5 MG AMPUL.NEB 3 ML INHALATION ×5 (03:00→19:57)
[2024-07-09 05:20] LABS: Hematocrit 31.8 % (42.0-52.0); Hemoglobin 10.6 g/dL (14.0-18.0); Mean Corpuscular HGB Conc 33.3 g/dl (32-36); Mean Corpuscular Hemoglobin 31.5 pg (26-34); Mean Corpuscular Volume 94.4 fl (80-100); Mean Platelet Volume 9.9 fl (7.4-10.4); Platelet Count Result 167 k/mm3 (150-375); Red Blood Count 3.37 M/mm3 (4.6-6.20); Red Cell Distribution Width 13.5 % (11.5-14.5); White Blood Count 11.9 K/mm3 (4.5-10.0)
[2024-07-09 05:36] LABS: Lactic Acid Reflex 1.6 mmol/L (0.7-2.0)
[2024-07-09 05:37] LABS: Alanine Aminotransferase 20 U/L (6-50); Albumin Level 3.5 g/dL (3.5-5.1); Alkaline Phosphatase 94 U/L (38-126); Anion Gap 10 mmol/L (4-12); Aspartate Amino Transferase 34 U/L (17-59); Bilirubin,Total 0.9 mg/dL (0.2-1.3); Blood Urea Nitrogen 25 mg/dL (9-20); Carbon Dioxide 19 mmol/L (22-30); Chloride 109 mmol/L (98-107); Estimated CRCL calculation 38 ml/min; Estimated Glomerular Filt Rate 54; Glucose 164 mg/dL (65-110); Magnesium 1.9 mg/dL (1.6-2.3); Potassium 3.5 mmol/L (3.4-5.0); Sodium 138 mmol/L (137-145)
[2024-07-09] MEDS: methylPREDNISolone SOD SUCC 40 MG VIAL IV PUSH (06:46)
[2024-07-09 06:47] LABS: Procalcitonin 0.1 ng/mL
--- NOTE | 2024-07-09 07:16 | P.PNIM_ITS ---
Progress Note: A&P Assessment and Plan (1) Acute exacerbation of chronic obstructive pulmonary disease: Code(s): J44.1 - Chronic obstructive pulmonary disease with (acute) exacerbation Status: Acute (2) Atrial fibrillation: Code(s): I48.91 - Unspecified atrial fibrillation Status: Acute (3) Lactic acidosis: Code(s): E87.20 - Acidosis, unspecified Status: Acute (4) Essential hypertension: Code(s): I10 - Essential (primary) hypertension Status: Acute (5) Chronic kidney disease, stage 3: Code(s): N18.30 - Chronic kidney disease, stage 3 unspecified Status: Acute (6) Left upper lobe pulmonary nodule: Code(s): R91.1 - Solitary pulmonary nodule Status: Acute (7) Obstructive sleep apnea on CPAP: Code(s): G47.33 - Obstructive sleep apnea (adult) (pediatric) Status: Acute (8) Hypokalemia: Code(s): E87.6 - Hypokalemia Status: Acute Subjective Date/time seen: 07/09/24 07:16 Interval history: 78-year-old male with history of tobacco abuse since the of 13 (quit 05/22/2024), chronic obstructive pulmonary disease, obstructive sleep apnea on CPAP, deep venous thrombosis, and hypertension who presented to the emergency department via EMS from home with complaints of shortness of breath. 07/09/2024 Patient sitting comfortably in bed at time of examination. I spoke with Dr. Marcos of Pulmonology who agrees that patient seems to be improving today with likely discharge tomorrow with close follow-up with Dr. Marcos's office in the outpatient setting. Switching to Prednisone at this time. At this time pt denies any chest pain, shortness of breath, n/v, or abdominal pain. Earlier in the morning after walking to and from the bathroom, the patient did have an episode of SOB and nursing staff applied 2L NC. Will have nursing staff wean him off this over the evening after next breathing treatment. Will continue Abx upon discharge. Review of Systems Review of Systems: 12 systems were reviewed and are negativ e except for as per HPI. Exam Narrative: General: Nontoxic-appearing gentleman sitting up in bed. On my arrival to the room, he was ambulating with the aid from the bathroom back to bed. It took him a good 10 minutes to catch his breath with stable oxygen saturations. Weight: 84 kg. BMI: 36.2. HEENT: PERRL, EOMI. Sclera anicteric. Tacky mucous membranes. Neck: Supple. No lymphadenopathy or jugular venous distention. Respiratory: normal respiratory effort and able to speak in complete sentences. Occasional cough. Lung sounds are diminished throughout with end-expiratory wheezing. Cardiovascular: Regular rate and rhythm with S1-S2. Gastrointestinal: Abdomen is soft, nontender, and nondistended with positive bowel sounds. No guarding or rebound tenderness. Skin: Warm and dry. Normal capillary refill. Extremities: No cyanosis, clubbing, or significant edema. Radial and pedal pulses intact. Negative Fela sign. Neurological: Alert. Cranial nerves 2-12 are grossly intact. No gross focal deficits to casual conversation. Psychiatric: Pleasant and cooperative with normal mood and affect. Judgment and insight intact. Objective Data Vital Signs Vital Signs: Vital Signs - 24 hr 07/08/24 07:19 07/08/24 08:03 07/08/24 08:03 Temperature Pulse Rate 117 H 97 Respiratory Rate 35 H 18 Blood Pressure 132/72 Pulse Oximetry 92 96 Oxygen Delivery Room Air Oxygen Flow Rate Fraction of Inspired Oxygen 21 07/08/24 08:08 07/08/24 09:28 07/08/24 09:55 Temperature Pulse Rate 94 100 108 H Respiratory Rate 20 22 H 32 H Blood Pressure 145/63 H 140/57 L Pulse Oximetry 98 96 Oxygen Delivery Oxygen Flow Rate Fraction of Inspired Oxygen 07/08/24 11:02 07/08/24 12:49 07/08/24 13:38 Temperature Pulse Rate 80 Respiratory Rate 18 Blood Pressure Pulse Oximetry 97 97 95 Oxygen Delivery Autopap Nasal Cannula Nasal Cannula Oxygen Flow Rate 2 2 Fraction of Inspired Oxygen 28 07/08/24 13:38 07/08/24 13:55 07/08/24 14:00 Temperature 98.7 F Pulse Rate 98 101 H 91 Respiratory Rate 28 H 24 H 28 H Blood Pressure 127/56 L Pulse Oximetry 100 Oxygen Delivery Oxygen Flow Rate Fraction of Inspired Oxygen 07/08/24 16:00 07/08/24 20:00 07/08/24 20:00 Temperature Pulse Rate 94 104 H Respiratory Rate Blood Pressure Pulse Oximetry Oxygen Delivery Room Air Oxygen Flow Rate Fraction of Inspired Oxygen 07/08/24 20:05 07/08/24 20:05 07/08/24 20:15 Temperature Pulse Rate 103 H 98 Respiratory Rate 24 H 24 H Blood Pressure Pulse Oximetry 93 Oxygen Delivery Room Air Oxygen Flow Rate Fraction of Inspired Oxygen 21 07/08/24 21:25 07/08/24 23:41 07/09/24 00:00 Temperature 98.6 F Pulse Rate 85 90 81 Respiratory Rate 20 20 Blood Pressure 156/61 H Pulse Oximetry 95 Oxygen Delivery Oxygen Flow Rate Fraction of Inspired Oxygen 07/09/24 03:00 07/09/24 03:00 07/09/24 03:15 Temperature Pulse Rate 77 77 79 Respiratory Rate 20 20 Blood Pressure Pulse Oximetry 94 Oxygen Delivery Oxygen Flow Rate Fraction of Inspired Oxygen 07/09/24 04:00 07/09/24 04:50 Temperature 98.7 F Pulse Rate 79 71 Respiratory Rate 18 Blood Pressure 149/51 H Pulse Oximetry 95 Oxygen Delivery Oxygen Flow Rate Fraction of Inspired Oxygen Intake/Output Intake/Output: Intake & Output 07/06/24 07/07/24 07/08/24 07/09/24 23:59 23:59 23:59 23:59 Intake Total 990 500 Output Total 300 300 Balance 690 200 Meds/Results Medications: Active Medications Generic Name Dose Route Start Last Admin Trade Name Freq PRN Reason Stop Dose Admin Acetaminophen 650 mg 07/08/24 07:23 Acetaminophen 325 Mg Tablet PO Q4H PRN Mild Pain (1-3) or Fever Hydrocodone Bitart/Acetaminophen 1 tab 07/08/24 14:09 07/08/24 23:02 Hydrocodone/Acetaminophen (*Crx) 5-325 Mg Tablet PO 1 tab Q6H PRN Administration pain 4-10 Albuterol/Ipratropium 3 ml 07/08/24 20:00 07/09/24 03:00 Ipratropium 0.5 Mg/Albuterol Sulfate 2.5 Mg Ampul.Neb 3 Ml INHALATION 3 ml Q4HRT ADALGISA Administration Amlodipine Besylate 5 mg 07/09/24 09:00 Amlodipine Besylate 5 Mg Tablet BY MOUTH DAILY ADALGISA Apixaban 5 mg 07/08/24 21:00 07/08/24 22:14 Apixaban 5 Mg Tablet PO 5 mg Q12HR ADALGISA Administration Aspirin 81 mg 07/09/24 09:00 Aspirin 81 Mg Enteric Tablet PO DAILY ADALIGSA Cefepime HCl 2 gm in 50 mls @ 100 mls/hr 07/08/24 10:00 07/08/24 22:14 Maxipime 2 Gm/Ns 50 Ml IVPB 100 mls/hr Q12H ADALGISA Administration Doxycycline Hyclate 100 mg in 100 mls @ 100 mls/hr 07/08/24 10:00 07/08/24 22:55 Vibramycin 100 Mg/Ns 100 Ml IVPB 100 mls/hr Q12H ADALGISA Administration Losartan Potassium 50 mg 07/09/24 09:00 Losartan Potassium 50 Mg Tablet PO QAM ADALGISA Methylprednisolone Sodium Succinate 40 mg 07/08/24 18:00 07/09/24 06:46 Methylprednisolone Sod Succ 40 Mg Vial IV PUSH 40 mg Q6HR ADALGISA Administration Ondansetron HCl 4 mg 07/08/24 07:23 Ondansetron Inj 4 Mg/2 Ml Vial IV PUSH Q4H PRN Nausea Perflutren Lipid Microsphere 0 ml 07/08/24 09:50 Perflutren Lipid Microspheres 1.5 Ml Vial Diluted To 10 Ml Total Volume IV PUSH 07/11/24 09:50 ONCE PRN adequate visualization Protocol Perflutren Lipid Microsphere 0 ml 07/08/24 11:24 Perflutren Lipid Microspheres 1.5 Ml Vial Diluted To 10 Ml Total Volume IV PUSH 07/11/24 11:24 ONCE PRN adequate visualization Protocol Roflumilast 500 mcg 07/09/24 09:00 Roflumilast 500 Mcg Tablet PO DAILY [facility] Rosuvastatin Calcium 20 mg 07/09/24 09:00 Rosuvastatin 20 Mg Tablet BY MOUTH DAILY [facility] Tamsulosin HCl 0.4 mg 07/09/24 09:00 Tamsulosin Hcl 0.4 Mg Capsule BY MOUTH DAILY [facility] Trazodone HCl 50 mg 07/08/24 14:09 07/08/24 22:14 Trazodone Hcl 50 Mg Tablet PO 50 mg QHS PRN Administration insomnia Radiology Results: ITS Impressions Chest X-Ray 07/08/24 06:53 Impression: Clear lungs. Possible COPD. Chest/Abdomen/Pelvis CTA 07/08/24 12:28 Impression: No acute abnormality. Severe emphysema. Stable 5 mm left upper lobe pulmonary nodule. Labs Labs: Laboratory Results - last 24 hr 07/08/24 07/08/24 07/08/24 05:56 07:50 09:05 WBC RBC Hgb Hct MCV MCH MCHC RDW Plt Count MPV Puncture Site ABG pH ABG pCO2 ABG pO2 ABG PO2/FiO2 Ratio ABG HCO3 ABG O2 Saturation ABG O2 Content ABG Base Excess A-a Gradient Oxyhemoglobin Total Hemoglobin O2 Delivery Device O2 Liters/Min FiO2 Sodium Potassium Chloride Carbon Dioxide Anion Gap BUN Creatinine Estim Creat Clear Calc Estimated GFR Glucose Lactic Acid 7.3 H* Calcium Magnesium 1.7 Total Bilirubin AST ALT Alkaline Phosphatase Troponin I < 0.012 NT-Pro-B Natriuret Pep 534 H Total Protein Albumin Procalcitonin TSH (Reflex) Urine Color Dark yellow Urine Appearance Clear Urine pH 5.0 Ur Specific Ledbetter 1.021 Urine Protein 3+ H Urine Glucose (UA) Negative Urine Ketones 1+ H Ur Blood (Man) Negative Urine Nitrate Negative Urine Bilirubin Negative Urine Urobilinogen 0.2 Add Ur Microanalysis Reviewed Leukocyte Esterase Rfl Negative Urine RBC 0-2 Urine WBC 0-5 Ur Squamous Epith Cells None seen Urine Bacteria None seen Urine Casts 3-5 Hyaline Casts Present Nasal MRSA (PCR) Salicylates 07/08/24 07/08/24 07/08/24 10:11 13:09 14:26 WBC RBC Hgb Hct MCV MCH MCHC RDW Plt Count MPV Puncture Site Right radial ABG pH 7.403 ABG pCO2 27.5 L ABG pO2 85.1 ABG PO2/FiO2 Ratio 3.04 ABG HCO3 16.8 L ABG O2 Saturation 96.6 ABG O2 Content 16.7 ABG Base Excess -6.6 A-a Gradient 82.1 Oxyhemoglobin 95.9 Total Hemoglobin 12.3 O2 Delivery Device Nasal cannula O2 Liters/Min 2.0 FiO2 28 Sodium Potassium Chloride Carbon Dioxide Anion Gap BUN Creatinine Estim Creat Clear Calc Estimated GFR Glucose Lactic Acid 4.7 H* Calcium Magnesium Total Bilirubin AST ALT Alkaline Phosphatase Troponin I NT-Pro-B Natriuret Pep Total Protein Albumin Procalcitonin TSH (Reflex) Urine Color Urine Appearance Urine pH Ur Specific [place] Urine Protein Urine Glucose (UA) Urine Ketones Ur Blood (Man) Urine Nitrate Urine Bilirubin Urine Urobilinogen Add Ur Microanalysis Leukocyte Esterase Rfl Urine RBC Urine WBC Ur Squamous Epith Cells Urine Bacteria Urine Casts Hyaline Casts Nasal MRSA (PCR) Not detected Salicylates 07/08/24 07/09/24 15:38 05:09 WBC 11.9 H RBC 3.37 L Hgb 10.6 L Hct 31.8 L MCV 94.4 MCH 31.5 MCHC 33.3 RDW 13.5 Plt Count 167 MPV 9.9 Puncture Site ABG pH ABG pCO2 ABG pO2 ABG PO2/FiO2 Ratio ABG HCO3 ABG O2 Saturation ABG O2 Content ABG Base Excess A-a Gradient Oxyhemoglobin Total Hemoglobin O2 Delivery Device O2 Liters/Min FiO2 Sodium 139 138 Potassium 4.2 3.5 Chloride 109 H 109 H Carbon Dioxide 16 L 19 L Anion Gap 14 H 10 BUN 23 H 25 H Creatinine 1.18 1.29 Estim Creat Clear Calc 41 38 Estimated GFR 60 54 L Glucose 156 H 164 H Lactic Acid 1.6 Calcium 9.1 9.0 Magnesium 1.9 Total Bilirubin 0.9 AST 34 ALT 20 Alkaline Phosphatase 94 Troponin I NT-Pro-B Natriuret Pep Total Protein 6.0 L Albumin 3.5 Procalcitonin 0.1 TSH (Reflex) 1.030 Urine Color Urine Appearance Urine pH Ur Specific [place] Urine Protein Urine Glucose (UA) Urine Ketones Ur Blood (Man) Urine Nitrate Urine Bilirubin Urine Urobilinogen Add Ur Microanalysis Leukocyte Esterase Rfl Urine RBC Urine WBC Ur Squamous Epith Cells Urine Bacteria Urine Casts Hyaline Casts Nasal MRSA (PCR) Salicylates < 1.0 L Quality VTE Prophylaxis VTE prophylaxis: pharmacologic ordered
--- NOTE | 2024-07-09 08:00 | P.PNPL_ITS ---
Progress Note: A&P Assessment and Plan (1) Acute exacerbation of chronic obstructive pulmonary disease: Code(s): J44.1 - Chronic obstructive pulmonary disease with (acute) exacerbation Status: Acute Assessment and Plan: GOLD grade 1 group E COPD. Patient is former tobacco user, quit . Alpha 1 anti trypsin genotype MM. PFTs on 08/19/2021 with an FEV1 of 1.94 L, 90% predicted, ratio 55% predicted, no bronchodilator response, normal lung volumes and a moderately decreased diffusing capacity that remains moderately decreased when adjusted for alveolar volume. He does not wear oxygen at home. He wears CPAP 16 for obstructive sleep apnea. 06/28/2024: patient says he has been sick for months and recently has worsening cough, shortness of breath and phlegm production. CTA scan of the chest shows No PE, severe apical predominant panlobular emphysema with no focal masses or consolidations. ABG on 2 L 7.4 . COVID, influenza, RSV RT PCR negative. currently on room air with saturations 94%. I believe patient does have a COPD exacerbation. No evidence of PE, fluid overload, ACS, and currently is back in sinus rhythm. there is no evidence of hypercarbic or hypoxemic respiratory failure. Plan: I will increase the patient's DuoNebs to q.4 hours. I will change him to Solu-Medrol 40 mg IV q.6. I will discontinue his trelegy 100 as he is on maximum doses of beta agonist and muscarinic antagonists with the DuoNebs q.4 hours. Patient has no focal infiltrates on a CT scan of the chest but agree with cefepime since he has received previous antibiotics and Doxycycline. Continue Daliresp 500 q.day. I will send urine Legionella, urine pneumococcal, mycoplasma IgM, respiratory pathogen panel looking for alternative infectious etiologies. I will place him on continuous pulse oximetry. I will order sputum culture. await echocardiogram results. 07/09/24: patient is currently wearing his home CPAP 16 and room air with saturations 91%. Through the mask he tells me that he is breathing better and 50% back to his normal. He has minimal cough and phlegm production. He is afebrile. White blood cell count 11.9, creatinine 1.29, lactic acid 1.6, p rocalcitonin 0.1. No wheezing on exam. Plan: Will change the patient to prednisone 40 mg p.o.. Continue DuoNebs q.4 hours. Continue Cefepime and doxycycline, both day 2. Continue Daliresp 500 mcg q.day. Goal saturation 90-94%, adjusted oxygen accordingly. urine Legionella, urine pneumococcal, mycoplasma IgM and respiratory pathogen panel pending. Discussed with Aron Quesada, will follow with you. (2) DOMINIC (obstructive sleep apnea): Code(s): G47.33 - Obstructive sleep apnea (adult) (pediatric) Status: Acute Assessment and Plan: Patient has obstructive sleep apnea on CPAP 16 at home. He has not been able to wear his machine because of his respiratory difficulties the last 2-3 nights. Patient did not tolerate the hospital CPAP 10 last night. Plan: I have talked to the will bring his home CPAP machine to the hospital . The patient can attempt to wear this tonight if it is comfortable, otherwise will hold off on CPAP until he improves. 07/09/24: Patient wearing his home unit of CPAP 16 and says it feels good. He slept well last night. Plan: Continue home CPAP 16 with room air. Subjective Date/time seen: 07/09/24 08:00 Interval history: 07/08/2024: This is a new pulmonary consult for COPD exacerbation and AFib with RVR. Patient is followed in the [facility] in last seen on 05/22/2024: 7 month follow-up regarding DOMINIC on CPAP and COPD. He is here today with his partner, Lissette. Hospitalized 03/13 - 03/14/23, treated for COPD exacerbation, RSV positive. Required supplemental oxygen initially, able to be weaned to room air prior to discharge. He has been sick since 2 weeks prior to [place] with MILIAN, cough, sputum yellow/green, wheezing, and some chest pains. He reports his grandchildren were sick as the time. He tested negative for COVID. PCP prescribed abx and steroid on 03/26 for COPD exacerbation. He felt this did help his symptoms but then he rebounded. He had a recent CXR that was clear. Today, he reports continued MILIAN walking 50ft, productive coughing discolored without blood, wheezing, and chest pains with coughing. He is maintained on Trelegy 100 daily and albuterol PRN. Rescue use 2-3x/week. He is compliant with CPAP and doing well with this. He smokes cigarettes 1ppd. Smokes marijuana occasionally, not every day for pain control. He plans to quit smoking today. plan: He did not like breztri. Continue trilogy 100 and p.r.n. albuterol. Start Daliresp. Start 250 a day for a month and then increase to 500 q.day. obstructive sleep apnea on CPAP 16 download shows excellent compliance, 100% nights used, average usage 6.7 hours a night. AHI 0.9. Low-dose CT scan scheduled 06/01/2024 06/01/2024: Low-dose CT scan with Lung rads 2, recommend follow-up in 12 months. Advanced emphysema. 4 mm nodule posterior lung apex new from prior exam. 4 mm irregular nodule in the right lung apex new from prior exam. Probably early cirrhotic changes of liver. 07/08/2024: Patient tells me he has been sick since . He did have RSV in February of 2024. He has received antibiotics previously. patient tells me he had his last cigarette 3 weeks ago and he has only had 1 cigarette since 05/22/2024. Currently patient tells me he has a cough, increased phlegm production and worsening dyspnea on exertion over the last 48 hours that prompted his emergency department visit. He denies any fever but felt chills with no sweats or diaphoresis. In the emergency department his white blood cell count was 11.8 with eosinophils 0.2%. His creatinine was 1.16, serum bicarbonate was 17, his COVID, influenza RSV RT PCR studies were negative. 2 L ABG 7.4 07/23/1987. Repeat on 2 L 7.. Patient has CT angiogram chest abdomen pelvis with no PE, severe apical predominant panlobular emphysema. His procalcitonin was 0.1. initial lactic acid was 3.2 approximately 3 hours later was 7.3. And 5-1/2 hours later was 4.7. His BNP 534 his troponin was negative. In the emergency department he had AFib RVR treated with metoprolol.. When I enter the room today was on 2 L nasal cannula saturations 97%. I decreased him to room air and over the next 12 minutes saturations remain 94% Later in the day echocardiogram with EF 65-70, grade 1 diastolic dysfunction, normal RV size and function, normal right atrial size. 07/09/24: patient is currently wearing his home CPAP 16 and room air with saturations 91%. Through the mask he tells me that he is breathing better and 50% back to his normal. He has minimal cough and phlegm production. He is afebrile. White blood cell count 11.9, creatinine 1.29, lactic acid 1.6, procalcitonin 0.1. No wheezing on exam. DATA 07/08/2024: Clinical Indication: Shortness of breath, lactic acidosis CT Scan of the Chest, Abdomen, and Pelvis with Contrast: Technique: Contiguous sections were acquired throughout the chest, abdomen, and pelvis after intravenous administration of 100 cc of Omnipaque 350. Dose reduction technique was used on this scan by utilizing automated exposure control and iterative reconstruction technique. The dose-length product (DLP) was 416.05 mGy-cm. Comparison: 06/01/2024 Findings: There is no evidence of any significant mediastinal, hilar or axillary lymphadenopathy. The mediastinal soft tissues appear normal. No aortic aneurysm or dissection. No pulmonary embolus evident. There is no evidence of pleural or pericardial effusion. Severe emphysema present. Stable 5 mm left upper lobe pulmonary nodule (axial image 21). The liver, spleen, pancreas, gallbladder, adrenals and kidneys are within normal limits, siphon bilateral renal cysts. No evidence of aortic aneurysm or dissection. No lymphadenopathy. No bowel obstruction or bowel wall thickening. There is no evidence to suggest acute appendicitis. Urinary bladder is unremarkable. No pelvic mass evident. No ascites. There is streak artifact in the pelvis from bilateral hip orthopedic hardware. There is degenerative spondylosis of the spine. Impression: No acute abnormality. Severe emphysema. Stable 5 mm left upper lobe pulmonary nodule. CXR 05/20/24 - No acute cardiopulmonary process. LDCT 04/26/23 - There is moderate to advanced emphysema. No pulmonary nodule evident. Alpha 1 genotype MM, normal. PFT 08/19/21 - Mild obstructive airway disease in the form of small airway disease with no response to bronchodilators on this testing.? Severely reduced lung diffusion capacity. 6m2 no O2 needed. PFT 11/24/17 moderate obstructive ventilatory defect with severe small airways disease.? No acute bronchodilator response.? Moderately decreased DLCO. Lexiscan stress 07/19/21 - negative 02/21/2024 through 05/20/2024: Patient is on CPAP 16. Usage days greater than or equal to 4 hours is 83%. Average usage days used is 6 hours and 46 minutes. AHI 0.9, apnea index 0.3, hypopnea index 0.7, median leak 3.4, 95th percentile leak 9.7, maximum leak 15.9. I interpret this download as good compliance, adequate pressures and low leak. Review of Systems Constitutional: Constitutional: Reports no additional constitutional complaints Eyes: Eyes: Reports no additional eye complaints ENT: Reports system reviewed and no additional complaints, except as documented Cardiovascular: Cardiovascular: Reports no additional cardiovascular complaints Respiratory: Respiratory: Reports no additional respiratory complaints Gastrointestinal: Gastrointestinal: Reports no additional gastrointestinal complaints Musculoskeletal: Musculoskeletal: Reports no additional musculoskeletal complaints Neurologic: Reports system reviewed and no additional complaints, except as documented Psychiatric: Psychiatric: Reports no additional psychiatric complaints Endocrine: Endocrine: Reports no additional endocrine complaints Hematologic/Lymphatic: Hematologic/Lymphatic: Reports no additional hematologic/lymphatic complaints Allergic/Immunologic: Allergic/Immunologic: Reports no additional allergic/immunologic complaints Exam Narrative: Relatively comfortable appearing on room air. Const: General: cooperative, healthy appearing and comfortable Orientation/consciousness: oriented to person, oriented to place and oriented to time HENMT: Head: normal to inspection Ears: hearing grossly normal bilaterally Eyes: General: appearance normal, both eyes and all related structures Neck: Neck: normal visual inspection Chest: Chest palpation & inspection: normal inspection of the chest Resp: Effort & Inspection: normal respiratory effort and able to speak in complete sentences Auscultation: no crackles, no rales, no rhonchi, no wheezes and lung sounds not diminished Other: Cardio: Jugular venous distension: no JVD GI: Inspection: normal to inspection Skin: General skin exam: normal color Neuro: General: oriented to person, oriented to place and oriented to time Extrem: General: normal to inspection and no edema Psych: Appearance: grossly normal Objective Data Vital Signs Vital Signs: Vital Signs - 24 hr 07/08/24 08:03 07/08/24 08:03 07/08/24 08:08 Temperature Pulse Rate 97 94 Respiratory Rate 18 20 Blood Pressure Pulse Oximetry 96 Oxygen Delivery Room Air Oxygen Flow Rate Fraction of Inspired Oxygen 21 07/08/24 09:28 07/08/24 09:55 07/08/24 11:02 Temperature Pulse Rate 100 108 H 80 Respiratory Rate 22 H 32 H 18 Blood Pressure 145/63 H 140/57 L Pulse Oximetry 98 96 97 Oxygen Delivery Autopap Oxygen Flow Rate Fraction of Inspired Oxygen 07/08/24 12:49 07/08/24 13:38 07/08/24 13:38 Temperature Pulse Rate 98 Respiratory Rate 28 H Blood Pressure Pulse Oximetry 97 95 Oxygen Delivery Nasal Cannula Nasal Cannula Oxygen Flow Rate 2 2 Fraction of Inspired Oxygen 28 07/08/24 13:55 07/08/24 14:00 07/08/24 16:00 Temperature 37.1 C Pulse Rate 101 H 91 94 Respiratory Rate 24 H 28 H Blood Pressure 127/56 L Pulse Oximetry 100 Oxygen Delivery Oxygen Flow Rate Fraction of Inspired Oxygen 07/08/24 20:00 07/08/24 20:00 07/08/24 20:05 Temperature Pulse Rate 104 H Respiratory Rate Blood Pressure Pulse Oximetry 93 Oxygen Delivery Room Air Room Air Oxygen Flow Rate Fraction of Inspired Oxygen 07/08/24 20:05 07/08/24 20:15 07/08/24 21:25 Temperature 37.0 C Pulse Rate 103 H 98 85 Respiratory Rate 24 H 24 H 20 Blood Pressure 156/61 H Pulse Oximetry 95 Oxygen Delivery Oxygen Flow Rate Fraction of Inspired Oxygen 07/08/24 23:41 07/09/24 00:00 07/09/24 03:00 Temperature Pulse Rate 90 81 77 Respiratory Rate 20 Blood Pressure Pulse Oximetry 94 Oxygen Delivery Oxygen Flow Rate Fraction of Inspired Oxygen 07/09/24 03:00 07/09/24 03:15 07/09/24 04:00 Temperature Pulse Rate 77 79 79 Respiratory Rate 20 20 Blood Pressure Pulse Oximetry Oxygen Delivery Oxygen Flow Rate Fraction of Inspired Oxygen 07/09/24 04:50 Temperature 37.1 C Pulse Rate 71 Respiratory Rate 18 Blood Pressure 149/51 H Pulse Oximetry 95 Oxygen Delivery Oxygen Flow Rate Fraction of Inspired Oxygen Intake/Output Intake/Output: Intake & Output 07/06/24 07/07/24 07/08/24 07/09/24 23:59 23:59 23:59 23:59 Intake Total 990 500 Output Total 300 300 Balance 690 200 Meds/Results Medications: Active Medications Generic Name Dose Route Start Last Admin Trade Name Freq PRN Reason Stop Dose Admin Acetaminophen 650 mg 07/08/24 07:23 Acetaminophen 325 Mg Tablet PO Q4H PRN Mild Pain (1-3) or Fever Hydrocodone Bitart/Acetaminophen 1 tab 07/08/24 14:09 07/08/24 23:02 Hydrocodone/Acetaminophen (*Crx) 5-325 Mg Tablet PO 1 tab Q6H PRN Administration pain 4-10 Albuterol/Ipratropium 3 ml 07/08/24 20:00 07/09/24 03:00 Ipratropium 0.5 Mg/Albuterol Sulfate 2.5 Mg Ampul.Neb 3 Ml INHALATION 3 ml Q4HRT ADALGISA Administration Amlodipine Besylate 5 mg 07/09/24 09:00 Amlodipine Besylate 5 Mg Tablet BY MOUTH DAILY ADALGISA Apixaban 5 mg 07/08/24 21:00 07/08/24 22:14 Apixaban 5 Mg Tablet PO 5 mg Q12HR ADALGISA Administration Aspirin 81 mg 07/09/24 09:00 Aspirin 81 Mg Enteric Tablet PO DAILY ADALGISA Cefepime HCl 2 gm in 50 mls @ 100 mls/hr 07/08/24 10:00 07/08/24 22:14 Maxipime 2 Gm/Ns 50 Ml IVPB 100 mls/hr Q12H ADALGISA Administration Doxycycline Hyclate 100 mg in 100 mls @ 100 mls/hr 07/08/24 10:00 07/08/24 22:55 Vibramycin 100 Mg/Ns 100 Ml IVPB 100 mls/hr Q12H ADALGISA Administration Losartan Potassium 50 mg 07/09/24 09:00 Losartan Potassium 50 Mg Tablet PO QAM ADALGISA Methylprednisolone Sodium Succinate 40 mg 07/08/24 18:00 07/09/24 06:46 Methylprednisolone Sod Succ 40 Mg Vial IV PUSH 40 mg Q6HR ADALGISA Administration Ondansetron HCl 4 mg 07/08/24 07:23 Ondansetron Inj 4 Mg/2 Ml Vial IV PUSH Q4H PRN Nausea Perflutren Lipid Microsphere 0 ml 07/08/24 09:50 Perflutren Lipid Microspheres 1.5 Ml Vial Diluted To 10 Ml Total Volume IV PUSH 07/11/24 09:50 ONCE PRN adequate visualization Protocol Perflutren Lipid Microsphere 0 ml 07/08/24 11:24 Perflutren Lipid Microspheres 1.5 Ml Vial Diluted To 10 Ml Total Volume IV PUSH 07/11/24 11:24 ONCE PRN adequate visualization Protocol Roflumilast 500 mcg 07/09/24 09:00 Roflumilast 500 Mcg Tablet PO DAILY [facility] Rosuvastatin Calcium 20 mg 07/09/24 09:00 Rosuvastatin 20 Mg Tablet BY MOUTH DAILY ADALGISA Tamsulosin HCl 0.4 mg 07/09/24 09:00 Tamsulosin Hcl 0.4 Mg Capsule BY MOUTH DAILY [facility] Trazodone HCl 50 mg 07/08/24 14:09 07/08/24 22:14 Trazodone Hcl 50 Mg Tablet PO 50 mg QHS PRN Administration insomnia Radiology Results: ITS Impressions Chest X-Ray 07/08/24 06:53 Impression: Clear lungs. Possible COPD. Chest/Abdomen/Pelvis CTA 07/08/24 12:28 Impression: No acute abnormality. Severe emphysema. Stable 5 mm left upper lobe pulmonary nodule. Labs Labs: Laboratory Results - last 24 hr 07/08/24 07/08/24 07/08/24 05:56 07:50 09:05 WBC RBC Hgb Hct MCV MCH MCHC RDW Plt Count MPV Puncture Site ABG pH ABG pCO2 ABG pO2 ABG PO2/FiO2 Ratio ABG HCO3 ABG O2 Saturation ABG O2 Content ABG Base Excess A-a Gradient Oxyhemoglobin Total Hemoglobin O2 Delivery Device O2 Liters/Min FiO2 Sodium Potassium Chloride Carbon Dioxide Anion Gap BUN Creatinine Estim Creat Clear Calc Estimated GFR Glucose Lactic Acid 7.3 H* Calcium Magnesium 1.7 Total Bilirubin AST ALT Alkaline Phosphatase Troponin I < 0.012 Total Protein Albumin Procalcitonin TSH (Reflex) Urine Color Dark yellow Urine Appearance Clear Urine pH 5.0 Ur Specific [place] 1.021 Urine Protein 3+ H Urine Glucose (UA) Negative Urine Ketones 1+ H Ur Blood (Man) Negative Urine Nitrate Negative Urine Bilirubin Negative Urine Urobilinogen 0.2 Add Ur Microanalysis Reviewed Leukocyte Esterase Rfl Negative Urine RBC 0-2 Urine WBC 0-5 Ur Squamous Epith Cells None seen Urine Bacteria None seen Urine Casts 3-5 Hyaline Casts Present Nasal MRSA (PCR) Salicylates 07/08/24 07/08/24 07/08/24 10:11 13:09 14:26 WBC RBC Hgb Hct MCV MCH MCHC RDW Plt Count MPV Puncture Site Right radial ABG pH 7.403 ABG pCO2 27.5 L ABG pO2 85.1 ABG PO2/FiO2 Ratio 3.04 ABG HCO3 16.8 L ABG O2 Saturation 96.6 ABG O2 Content 16.7 ABG Base Excess -6.6 A-a Gradient 82.1 Oxyhemoglobin 95.9 Total Hemoglobin 12.3 O2 Delivery Device Nasal cannula O2 Liters/Min 2.0 FiO2 28 Sodium Potassium Chloride Carbon Dioxide Anion Gap BUN Creatinine Estim Creat Clear Calc Estimated GFR Glucose Lactic Acid 4.7 H* Calcium Magnesium Total Bilirubin AST ALT Alkaline Phosphatase Troponin I Total Protein Albumin Procalcitonin TSH (Reflex) Urine Color Urine Appearance Urine pH Ur Specific [place] Urine Protein Urine Glucose (UA) Urine Ketones Ur Blood (Man) Urine Nitrate Urine Bilirubin Urine Urobilinogen Add Ur Microanalysis Leukocyte Esterase Rfl Urine RBC Urine WBC Ur Squamous Epith Cells Urine Bacteria Urine Casts Hyaline Casts Nasal MRSA (PCR) Not detected Salicylates 07/08/24 07/09/24 15:38 05:09 WBC 11.9 H RBC 3.37 L Hgb 10.6 L Hct 31.8 L MCV 94.4 MCH 31.5 MCHC 33.3 RDW 13.5 Plt Count 167 MPV 9.9 Puncture Site ABG pH ABG pCO2 ABG pO2 ABG PO2/FiO2 Ratio ABG HCO3 ABG O2 Saturation ABG O2 Content ABG Base Excess A-a Gradient Oxyhemoglobin Total Hemoglobin O2 Delivery Device O2 Liters/Min FiO2 Sodium 139 138 Potassium 4.2 3.5 Chloride 109 H 109 H Carbon Dioxide 16 L 19 L Anion Gap 14 H 10 BUN 23 H 25 H Creatinine 1.18 1.29 Estim Creat Clear Calc 41 38 Estimated GFR 60 54 L Glucose 156 H 164 H Lactic Acid 1.6 Calcium 9.1 9.0 Magnesium 1.9 Total Bilirubin 0.9 AST 34 ALT 20 Alkaline Phosphatase 94 Troponin I Total Protein 6.0 L Albumin 3.5 Procalcitonin 0.1 TSH (Reflex) 1.030 Urine Color Urine Appearance Urine pH Ur Specific [place] Urine Protein Urine Glucose (UA) Urine Ketones Ur Blood (Man) Urine Nitrate Urine Bilirubin Urine Urobilinogen Add Ur Microanalysis Leukocyte Esterase Rfl Urine RBC Urine WBC Ur Squamous Epith Cells Urine Bacteria Urine Casts Hyaline Casts Nasal MRSA (PCR) Salicylates < 1.0 L
[2024-07-09] MEDS: amLODIPine BESYLATE 5 MG TABLET BY MOUTH (10:12)
[2024-07-09] MEDS: APIXABAN 5 MG TABLET PO ×2 (10:12→20:44)
[2024-07-09] MEDS: TAMSULOSIN HCL 0.4 MG CAPSULE BY MOUTH (10:12)
[2024-07-09] MEDS: ROSUVASTATIN 20 MG TABLET BY MOUTH (10:13)
[2024-07-09] MEDS: ASPIRIN 81 MG ENTERIC TABLET PO (10:13)
[2024-07-09] MEDS: LOSARTAN POTASSIUM 50 MG TABLET PO (10:13)
[2024-07-09] MEDS: ROFLUMILAST 500 MCG TABLET PO (10:13)
[2024-07-09] MEDS: CEFEPIME 2 GM/NS 50 ML 2 GM/50 ML BAG IVPB (10:14)
[2024-07-09] MEDS: DOXYCYCLINE 100 MG/NS 100 ML 100 MG/100 ML BAG IVPB (11:09)
[2024-07-09] MEDS: predniSONE 20 MG TABLET 40 MG PO (11:11)
--- NOTE | 2024-07-09 13:22 | ECG_ITS ---
Test Date: 2024-07-09 13:42:43 Measurements Intervals [place] Rate: 93 P: 70 ND: 150 QRS: 84 QRSD: 89 T: 32 QT: 333 QTc: 416 Interpretive Statements SINUS RHYTHM WITH ATRIAL COUPLETS AND ATRIAL AND VENTRICULAR PREMATURE COMPLEXES BORDERLINE ST-T WAVE ABNORMALITY- INFERIOR LEADS BASELINE ARTIFACT- V4-V6 ABNORMAL ECG Compared to ECG 07/08/2024 12:46:50 NO SIGNIFICANT CHANGE Electronically Signed On 07-09-2024 13:56:23 CDT by Tino Snowden D.O.
[2024-07-09] MEDS: HYDROcodone/acetaminophen (*CRX) 5-325 MG TABLET 1 TAB PO (20:44)
[2024-07-09] MEDS: traZODone HCL 50 MG TABLET PO (20:44)
[2024-07-10] VITALS (18 sets, daily range): BP systolic 118–128; BP diastolic 59–69; PULSE 80–105; RESP 16–20; TEMP 36.6–37.1; O2SAT 91–94
[2024-07-10] MEDS: IPRATROPIUM 0.5 MG/ALBUTEROL SULFATE 2.5 MG AMPUL.NEB 3 ML INHALATION ×3 (04:31→08:12)
[2024-07-10 07:10] LABS: Hematocrit 31.3 % (42.0-52.0); Hemoglobin 10.2 g/dL (14.0-18.0); Mean Corpuscular HGB Conc 32.6 g/dl (32-36); Mean Corpuscular Hemoglobin 31.8 pg (26-34); Mean Corpuscular Volume 97.5 fl (80-100); Mean Platelet Volume 10.4 fl (7.4-10.4); Platelet Count Result 198 k/mm3 (150-375); Red Blood Count 3.21 M/mm3 (4.6-6.20); Red Cell Distribution Width 13.8 % (11.5-14.5); White Blood Count 14.8 K/mm3 (4.5-10.0)
[2024-07-10 07:23] LABS: Alanine Aminotransferase 23 U/L (6-50); Albumin Level 3.1 g/dL (3.5-5.1); Alkaline Phosphatase 80 U/L (38-126); Anion Gap 7 mmol/L (4-12); Aspartate Amino Transferase 36 U/L (17-59); Bilirubin,Total 0.7 mg/dL (0.2-1.3); Blood Urea Nitrogen 33 mg/dL (9-20); Calcium 8.8 mg/dL (8.4-10.2); Carbon Dioxide 20 mmol/L (22-30); Chloride 108 mmol/L (98-107); Estimated CRCL calculation 36 ml/min; Estimated Glomerular Filt Rate 50; Glucose 120 mg/dL (65-110); Potassium 3.9 mmol/L (3.4-5.0); Sodium 135 mmol/L (137-145)
[2024-07-10] MEDS: predniSONE 20 MG TABLET 40 MG PO (08:25)
[2024-07-10] MEDS: ROSUVASTATIN 20 MG TABLET BY MOUTH (08:25)
[2024-07-10] MEDS: ASPIRIN 81 MG ENTERIC TABLET PO (08:25)
[2024-07-10] MEDS: amLODIPine BESYLATE 5 MG TABLET BY MOUTH (08:25)
[2024-07-10] MEDS: APIXABAN 5 MG TABLET PO ×2 (08:25→21:00)
[2024-07-10] MEDS: TAMSULOSIN HCL 0.4 MG CAPSULE BY MOUTH (08:25)
[2024-07-10] MEDS: ROFLUMILAST 500 MCG TABLET PO (08:25)
[2024-07-10] MEDS: LOSARTAN POTASSIUM 50 MG TABLET PO (08:25)
--- NOTE | 2024-07-10 08:41 | P.PNPL_ITS ---
Progress Note: A&P Assessment and Plan (1) Acute exacerbation of chronic obstructive pulmonary disease: Code(s): J44.1 - Chronic obstructive pulmonary disease with (acute) exacerbation Status: Acute Assessment and Plan: GOLD grade 1 group E COPD. Patient is former tobacco user, quit . Alpha 1 anti trypsin genotype MM. PFTs on 08/19/2021 with an FEV1 of 1.94 L, 90% predicted, ratio 55% predicted, no bronchodilator response, normal lung volumes and a moderately decreased diffusing capacity that remains moderately decreased when adjusted for alveolar volume. He does not wear oxygen at home. He wears CPAP 16 for obstructive sleep apnea. 06/28/2024: patient says he has been sick for months and recently has worsening cough, shortness of breath and phlegm production. CTA scan of the chest shows No PE, severe apical predominant panlobular emphysema with no focal masses or consolidations. ABG on 2 L 7.4 . COVID, influenza, RSV RT PCR negative. currently on room air with saturations 94%. I believe patient does have a COPD exacerbation. No evidence of PE, fluid overload, ACS, and currently is back in sinus rhythm. there is no evidence of hypercarbic or hypoxemic respiratory failure. Plan: I will increase the patient's DuoNebs to q.4 hours. I will change him to Solu-Medrol 40 mg IV q.6. I will discontinue his trelegy 100 as he is on maximum doses of beta agonist and muscarinic antagonists with the DuoNebs q.4 hours. Patient has no focal infiltrates on a CT scan of the chest but agree with cefepime since he has received previous antibiotics and Doxycycline. Continue Daliresp 500 q.day. I will send urine Legionella, urine pneumococcal, mycoplasma IgM, respiratory pathogen panel looking for alternative infectious etiologies. I will place him on continuous pulse oximetry. I will order sputum culture. await echocardiogram results. 07/09/24: patient is currently wearing his home CPAP 16 and room air with saturations 91%. Through the mask he tells me that he is breathing better and 50% back to his normal. He has minimal cough and phlegm production. He is afebrile. White blood cell count 11.9, creatinine 1.29, lactic acid 1.6, p rocalcitonin 0.1. No wheezing on exam. Plan: Will change the patient to prednisone 40 mg p.o.. Continue DuoNebs q.4 hours. Continue Cefepime and doxycycline, both day 2. Continue Daliresp 500 mcg q.day. Goal saturation 90-94%, adjusted oxygen accordingly. urine Legionella, urine pneumococcal, mycoplasma IgM and respiratory pathogen panel pending. 07/10/2024: Patient tells me he is improving. He is 65% back to his normal. he tells me he is breathing better than he was since January of 2024. On a good day at home he can walk 50 ft and on a bad day he can walk 25 ft. Yester day he walked to the bathroom approximately 25 ft and had his usual dyspnea on exertion. His cough is it is normal. He has less phlegm production the normal and no hemoptysis. When I enter the room he is on 2 L nasal cannula saturations 95%. I changed room air and after 7 minutes saturations were 91%. Patient only slept for an hour last night with his home CPAP of 16 on room air. He did not h ave difficulty sleeping because of respiratory issues. He says that his sleep schedule is irregular any goes to sleep about 3:00 a.m. at home. His weight today is 83 kg. Plan: Continue prednisone 40 mg p.o. q.day, day 3 of steroids. I will change his DuoNebs to his home trelegy 100. Continue Daliresp 500. Goal saturation 90-94%. Adjust act oxygen accordingly. Continue cefepime and doxycycline both day 3. urine Legionella, urine pneumococcal, mycoplasma IgM and respiratory pathogen panel pending. if patient continues to improve possibly discharge on 07/11 on these pulmonary medications prednisone 40 mg p.o. q.day x2 days Cefdinir 300 mg p.o. b.i.d. times 3 days Doxycycline 100 mg p.o. b.i.d. x3 days trelegy 100 at 1 puff q.day Daliresp 500 mcg p.o. q.day Rescue albuterol 2 puffs q.4 hours p.r.n. shortness of breath or wheezing Oxygen at rest and with activity per formal home O2 assessment on the day of discharge CPAP 16 with oxygen levels guided by overnight oximetry tonight. Discussed with Nichole Galloway, will follow with you. (2) DOMINIC (obstructive sleep apnea): Code(s): G47.33 - Obstructive sleep apnea (adult) (pediatric) Status: Acute Assessment and Plan: Patient has obstructive sleep apnea on CPAP 16 at home. He has not been able to wear his machine because of his respiratory difficulties the last 2-3 nights. Patient did not tolerate the hospital CPAP 10 last night. Plan: I have talked to the will bring his home CPAP machine to the hospital. The patient can attempt to wear this tonight if it is comfortable, otherwise will hold off on CPAP until he improves. 07/09/24: Patient wearing his home unit of CPAP 16 and says it feels good. He slept well last night. Plan: Continue home CPAP 16 with room air. 07/10/24: Patient sporadically wearing his home CPAP with room air in the hospital because of 0 regular sleep patterns. Plan: Continue home CPAP 16 with room air. I will perform an overnight oximetry tonight on these settings. Subjective Date/time seen: 07/10/24 08:41 Interval history: 07/08/2024: This is a new pulmonary consult for COPD exacerbation and AFib with RVR. Patient is followed in the [facility] in last seen on 05/22/2024: 7 month follow-up regarding DOMINIC on CPAP and COPD. He is here today with his partner, Lissette. Hospitalized 03/13 - 03/14/23, treated for COPD exacerbation, RSV positive. Required supplemental oxygen initially, able to be weaned to room air prior to discharge. He has been sick since 2 weeks prior to with MILIAN, cough, sputum yellow/green, wheezing, and some chest pains. He reports his grandchildren were sick as the time. He tested negative for COVID. PCP prescribed abx and steroid o n 03/26 for COPD exacerbation. He felt this did help his symptoms but then he rebounded. He had a recent CXR that was clear. Today, he reports continued MILIAN walking 50ft, productive coughing discolored without blood, wheezing, and chest pains with coughing. He is maintained on Trelegy 100 daily and albuterol PRN. Rescue use 2-3x/week. He is compliant with CPAP and doing well with this. He smokes cigarettes 1ppd. Smokes marijuana occasionally, not every day for pain control. He plans to quit smoking today. plan: He did not like breztri. Continue trilogy 100 and p.r.n. albuterol. Start Daliresp. Start 250 a day for a month and then increase to 500 q.day. obstructive sleep apnea on CPAP 16 download shows excellent compliance, 100% nights used, average usage 6.7 hours a night. AHI 0.9. Low-dose CT scan scheduled 06/01/2024 06/01/2024: Low-dose CT scan with Lung rads 2, recommend follow-up in 12 months. Advanced emphysema. 4 mm nodule posterior lung apex new from prior exam. 4 mm irregular nodule in the right lung apex new from prior exam. Probably early cirrhotic changes of liver. 07/08/2024: Patient tells me he has been sick since . He did have RSV in February of 2024. He has received antibiotics previously. patient tells me he had his last cigarette 3 weeks ago and he has only had 1 cigarette since 05/22/2024. Currently patient tells me he has a cough, increased phlegm production and worsening dyspnea on exertion over the last 48 hours that prompted his emergency department visit. He denies any fever but felt chills with no sweats or diaphoresis. In the emergency department his white blood cell count was 11.8 with eosinophils 0.2%. His creatinine was 1.16, serum bicarbonate was 17, his COVID, influenza RSV RT PCR studies were negative. 2 L ABG 7.4 07/23/1987. Repeat on 2 L 7.. Patient has CT angiogram chest abdomen pelvis with no PE, severe apical predominant panlobular emphysema. His procalcitonin was 0.1. initial lactic acid was 3.2 approximately 3 hours later was 7.3. And 5-1/2 hours later was 4.7. His BNP 534 his troponin was negative. In the emergency department he had AFib RVR treated with metoprolol .. When I enter the room today was on 2 L nasal cannula saturations 97%. I decreased him to room air and over the next 12 minutes saturations remain 94% Later in the day echocardiogram with EF 65-70, grade 1 diastolic dysfunction, normal RV size and function, normal right atrial size. 4/15/25: patient is currently wearing his home CPAP 16 and room air with saturations 91%. Through the mask he tells me that he is breathing better and 50% back to his normal. He has minimal cough and phlegm production. He is afebrile. White blood cell count 11.9, creatinine 1.29, lactic acid 1.6, proca lcitonin 0.1. No wheezing on exam. 07/10/2024: Patient tells me he is improving. He is 65% back to his normal. he tells me he is breathing better than he was since January of 2024. On a good day at home he can walk 50 ft and on a bad day he can walk 25 ft. Yesterday he walked to the bathroom approximately 25 ft and had his usual dyspnea on exertion. His cough is it is normal. He has less phlegm production the normal and no hemoptysis. When I enter the room he is on 2 L nasal cannula saturations 95%. I changed room air and after 7 minutes saturations were 91%. Patient only slept for an hour last night with his home CPAP of 16 on room air. He did not have difficulty sleeping because of respiratory issues. He says that his sleep schedule is irregular any goes to sleep about 3:00 a.m. at home. His weight today is 83 kg. DATA 07/08/2024: Clinical Indication: Shortness of breath, lactic acidosis CT Scan of the Chest, Abdomen, and Pelvis with Contrast: Technique: Contiguous sections were acquired throughout the chest, abdomen, and pelvis after intravenous administration of 100 cc of Omnipaque 350. Dose reduction technique was used on this scan by utilizing automated exposure control and iterative reconstruction technique. The dose-length product (DLP) was 416.05 mGy-cm. Comparison: 06/01/2024 Findings: There is no evidence of any significant mediastinal, hilar or axillary lymphadenopathy. The mediastinal soft tissues appear normal. No aortic aneurysm or dissection. No pulmonary embolus evident. There is no evidence of pleural or pericardial effusion. Severe emphysema present. Stable 5 mm left upper lobe pulmonary nodule (axial image 21). The liver, spleen, pancreas, gallbladder, adrenals and kidneys are within normal limits, siphon bilateral renal cysts. No evidence of aortic aneurysm or dissection. No lymphadenopathy. No bowel obstruction or bowel wall thickening. There is no evidence to suggest acute appendicitis. Urinary bladder is unremarkable. No pelvic mass evident. No ascites. There is streak artifact in the pelvis from bilateral hip orthopedic hardware. There is degenerative spondylosis of the spine. Impression: No acute abnormality. Severe emphysema. Stable 5 mm left upper lobe pulmonary nodule. CXR 05/20/24 - No acute cardiopulmonary process. LDCT 04/26/23 - There is moderate to advanced emphysema. No pulmonary nodule evident. Alpha 1 genotype MM, normal. PFT 08/19/21 - Mild obstructive airway disease in the form of small airway disease with no response to bronchodilators on this testing.? Severely reduced lung diffusion capacity. 6m2 no O2 needed. PFT 11/24/17 moderate obstructive ventilatory defect with severe small airways disease.? No acute bronchodilator response.? Moderately decreased DLCO. Lexiscan stress 07/19/21 - negative 02/21/2024 through 05/20/2024: Patient is on CPAP 16. Usage days greater than or equal to 4 hours is 83%. Average usage days used is 6 hours and 46 minutes. AHI 0.9, apnea index 0.3, hypopnea index 0.7, median leak 3.4, 95th percentile leak 9.7, maximum leak 15.9. I interpret this download as good compliance, adequate pressures and low leak. Review of Systems Constitutional: Constitutional: Reports no additional constitutional complaints Eyes: Eyes: Reports no additional eye complaints ENT: Reports system reviewed and no additional complaints, except as documented Cardiovascular: Cardiovascular: Reports no additional cardiovascular complaints Respiratory: Respiratory: Reports no additional respiratory complaints Gastrointestinal: Gastrointestinal: Reports no additional gastrointestinal complaints Musculoskeletal: Musculoskeletal: Reports no additional musculoskeletal complaints Neurologic: Reports system reviewed and no additional complaints, except as documented Psychiatric: Psychiatric: Reports no additional psychiatric complaints Endocrine: Endocrine: Reports no additional endocrine complaints Hematologic/Lymphatic: Hematologic/Lymphatic: Reports no additional hematologic/lymphatic complaints Allergic/Immunologic: Allergic/Immunologic: Reports no additional a llergic/immunologic complaints Exam Narrative: Relatively comfortable appearing on room air. Const: General: cooperative, healthy appearing and comfortable Orientation/consciousness: oriented to person, oriented to place and oriented to time HENMT: Head: normal to inspection Ears: hearing grossly normal bilaterally Eyes: General: appearance normal, both eyes and all related structures Neck: Neck: normal visual inspection Chest: Chest palpation & inspection: normal inspection of the chest Resp: Effort & Inspection: normal respiratory effort and able to speak in complete sentences Auscultation: no crackles, no rales, no rhonchi, no wheezes and lung sounds not diminished Other: Cardio: Jugular venous distension: no JVD GI: Inspection: normal to inspection Skin: General skin exam: normal color Neuro: General: oriented to person, oriented to place and oriented to time Extrem: General: normal to inspection and no edema Psych: Appearance: grossly normal Objective Data Vital Signs Vital Signs: Vital Signs - 24 hr 07/09/24 08:42 07/09/24 10:15 07/09/24 11:14 Temperature Pulse Rate 80 Respiratory Rate 20 Blood Pressure Pulse Oximetry 91 Oxygen Delivery Room Air Room Air Oxygen Flow Rate Fraction of Inspired Oxygen 21 21 07/09/24 11:14 07/09/24 11:20 07/09/24 12:00 Temperature Pulse Rate 101 H 97 108 H Respiratory Rate 22 H 22 H Blood Pressure Pulse Oximetry Oxygen Delivery Oxygen Flow Rate Fraction of Inspired Oxygen 07/09/24 14:00 07/09/24 16:00 07/09/24 16:57 Temperature 36.3 C L Pulse Rate 101 H 91 113 H Respiratory Rate 18 22 H Blood Pressure 127/54 L Pulse Oximetry 97 87 L Oxygen Delivery Room Air Oxygen Flow Rate Fraction of Inspired Oxygen 07/09/24 16:58 07/09/24 17:15 07/09/24 19:57 Temperature Pulse Rate 113 H 95 93 Respiratory Rate 20 20 20 Blood Pressure Pulse Oximetry Oxygen Delivery Oxygen Flow Rate Fraction of Inspired Oxygen 07/09/24 20:00 07/09/24 20:00 07/09/24 20:10 Temperature Pulse Rate 98 83 Respiratory Rate 20 Blood Pressure Pulse Oximetry Oxygen Delivery Room Air Oxygen Flow Rate Fraction of Inspired Oxygen 07/09/24 20:11 07/09/24 21:22 07/09/24 23:38 Temperature 37.0 C Pulse Rate 99 78 Respiratory Rate 18 Blood Pressure 133/71 Pulse Oximetry 93 96 94 Oxygen Delivery Nasal Cannula Oxygen Flow Rate 2 Fraction of Inspired Oxygen 07/10/24 00:00 07/10/24 00:00 07/10/24 00:12 Temperature Pulse Rate 98 105 H 101 H Respiratory Rate 20 20 Blood Pressure Pulse Oximetry Oxygen Delivery Oxygen Flow Rate Fraction of Inspired Oxygen 07/10/24 01:43 07/10/24 04:00 07/10/24 04:32 Temperature Pulse Rate 86 92 90 Respiratory Rate 20 Blood Pressure Pulse Oximetry 94 Oxygen Delivery Oxygen Flow Rate Fraction of Inspired Oxygen 07/10/24 04:40 07/10/24 05:00 07/10/24 08:14 Temperature 36.8 C Pulse Rate 91 88 86 Respiratory Rate 20 16 18 Blood Pressure 128/69 Pulse Oximetry 93 Oxygen Delivery Oxygen Flow Rate Fraction of Inspired Oxygen 07/10/24 08:16 Temperature Pulse Rate Respiratory Rate Blood Pressure Pulse Oximetry 91 Oxygen Delivery Room Air Oxygen Flow Rate Fraction of Inspired Oxygen Intake/Output Intake/Output: Intake & Output 07/07/24 07/08/24 07/09/24 07/10/24 23:59 23:59 23:59 23:59 Intake Total 1140 1918 790 Output Total 300 500 300 Balance 840 1418 490 Meds/Results Medications: Active Medications Generic Name Dose Route Start Last Admin Trade Name Freq PRN Reason Stop Dose Admin Acetaminophen 650 mg 07/08/24 07:23 Acetaminophen 325 Mg Tablet PO Q4H PRN Mild Pain (1-3) or Fever Hydrocodone Bitart/Acetaminophen 1 tab 07/08/24 14:09 07/09/24 20:44 Hydrocodone/Acetaminophen (*Crx) 5-325 Mg Tablet PO 1 tab Q6H PRN Administration pain 4-10 Amlodipine Besylate 5 mg 07/09/24 09:00 07/10/24 08:25 Amlodipine Besylate 5 Mg Tablet BY MOUTH 5 mg DAILY ADLAGISA Administration Apixaban 5 mg 07/08/24 21:00 07/10/24 08:25 Apixaban 5 Mg Tablet PO 5 mg Q12HR ADALGISA Administration Aspirin 81 mg 07/09/24 09:00 07/10/24 08:25 Aspirin 81 Mg Enteric Tablet PO 81 mg DAILY ADALGISA Administration Fluticasone/Umeclidinium/Vilanterol 1 puff 07/10/24 08:40 Fluticasone/Umeclidin/Vilanter 100-62.5-25 Mcg Ellipta INHALATION DAILYRT ADALGISA Cefepime HCl 2 gm in 50 mls @ 100 mls/hr 07/08/24 10:00 07/10/24 06:30 Maxipime 2 Gm/Ns 50 Ml IVPB Not Given Q12H ADALGISA Doxycycline Hyclate 100 mg in 100 mls @ 100 mls/hr 07/08/24 10:00 07/10/24 06:30 Vibramycin 100 Mg/Ns 100 Ml IVPB Not Given Q12H ADALGISA Losartan Potassium 50 mg 07/09/24 09:00 07/10/24 08:25 Losartan Potassium 50 Mg Tablet PO 50 mg QAM ADALGISA Administration Ondansetron HCl 4 mg 07/08/24 07:23 Ondansetron Inj 4 Mg/2 Ml Vial IV PUSH Q4H PRN Nausea Perflutren Lipid Microsphere 0 ml 07/08/24 09:50 Perflutren Lipid Microspheres 1.5 Ml Vial Diluted To 10 Ml Total Volume IV PUSH 07/11/24 09:50 ONCE PRN adequate visualization Protocol Perflutren Lipid Microsphere 0 ml 07/08/24 11:24 Perflutren Lipid Microspheres 1.5 Ml Vial Diluted To 10 Ml Total Volume IV PUSH 07/11/24 11:24 ONCE PRN adequate visualization Protocol Prednisone 40 mg 07/09/24 11:00 07/10/24 08:25 Prednisone 20 Mg Tablet PO 40 mg DAILY@0800 ADALGISA Administration Roflumilast 500 mcg 07/09/24 09:00 07/10/24 08:25 Roflumilast 500 Mcg Tablet PO 500 mcg DAILY ADALGISA Administration Rosuvastatin Calcium 20 mg 07/09/24 09:00 07/10/24 08:25 Rosuvastatin 20 Mg Tablet BY MOUTH 20 mg DAILY ADALGISA Administration Tamsulosin HCl 0.4 mg 07/09/24 09:00 07/10/24 08:25 Tamsulosin Hcl 0.4 Mg Capsule BY MOUTH 0.4 mg DAILY ADALGISA Administration Trazodone HCl 50 mg 07/08/24 14:09 07/09/24 20:44 Trazodone Hcl 50 Mg Tablet PO 50 mg QHS PRN Administration insomnia Radiology Results: ITS Impressions Chest X-Ray 07/08/24 06:53 Impression: Clear lungs. Possible COPD. Chest/Abdomen/Pelvis CTA 07/08/24 12:28 Impression: No acute abnormality. Severe emphysema. Stable 5 mm left upper lobe pulmonary nodule. Labs Labs: Laboratory Results - last 24 hr 07/09/24 07/10/24 13:59 06:58 WBC 14.8 H RBC 3.21 L Hgb 10.2 L Hct 31.3 L MCV 97.5 MCH 31.8 MCHC 32.6 RDW 13.8 Plt Count 198 MPV 10.4 D-Dimer 0.50 H Sodium 135 L Potassium 3.9 Chloride 108 H Carbon Dioxide 20 L Anion Gap 7 BUN 33 H Creatinine 1.37 H Estim Creat Clear Calc 36 Estimated GFR 50 L Glucose 120 H Calcium 8.8 Total Bilirubin 0.7 AST 36 ALT 23 Alkaline Phosphatase 80 Total Protein 6.0 L Albumin 3.1 L
--- NOTE | 2024-07-10 08:52 | PM.IMPN ---
Progress Note: A&P Assessment and Plan (1) Acute exacerbation of chronic obstructive pulmonary disease: Code(s): J44.1 - Chronic obstructive pulmonary disease with (acute) exacerbation Status: Acute Assessment and Plan: Chest XR: Clear lungs. Possible COPD. Chest/abdomen/pelvis CTA: No acute abnormality, severe emphysema, and a stable 5 mm left upper lobe pulmonary nodule. - Antibiotics: Cefepime and doxycycline started on 07/08 Patient continues to endorse productive cough, continue pep therapy and IS - Home trelegy 1 puff daily - Prednisone 40 mg daily, transitioned to on 07/09 - urine Legionella, urine pneumococcal, mycoplasma IgM and respiratory pathogen panel pending. - Monitor vital signs, I&Os, neuro status and patient is a fall risk - Monitor serum electrolytes, cultures and CBC - Monitor Oxygen saturation, Oxygen via NC; wean oxygen as tolerated, keep SpO2 greater than 90-94% - Pulmonology consulted If patient continues to improve possibly discharge on 07/11 on these pulmonary medications Prednisone 40 mg p.o. q.day x2 days Cefdinir 300 mg p.o. b.i.d. times 3 days Doxycycline 100 mg p.o. b.i.d. x3 days Trelegy 100 at 1 puff q.day Daliresp 500 mcg p.o. q.day Rescue albuterol 2 puffs q.4 hours p.r.n. shortness of breath or wheezing Oxygen at rest and with activity per formal home O2 assessment on the day of discharge CPAP 16 with oxygen levels guided by overnight oximetry tonight. (2) Atrial fibrillation: Code(s): I48.91 - Unspecified atrial fibrillation Status: Acute Assessment and Plan: New onset AFib with RVR-most likely secondary to pulmonary disease. Received IV metroprolol and converted back to sinus rhythm with heart rates in the 90s. Troponin x3 negative TSH and free T3, T4 WNL Remains in sinus rhythm Cardiology consulted TTE: LVEF 65-70% with grade I diastolic dysfunction CHADS2 Vasc score of 4. Start anticoagulation with Eliquis p.o. 5 mg b.i.d. event monitor for 30 days at discharge to evaluate burden of AFib outpatient stress test after recovering from acute illness outpatient Cardiology follow-up in 4 weeks post discharge (3) Lactic acidosis: Code(s): E87.20 - Acidosis, unspecified Status: Acute Assessment and Plan: Initial lactic acid level was 3.2 and a repeat level increased to 7.3. Received normal saline and level is trending down, now 1.6. The etiology of lactic acidosis is not entirely clear. Sepsis seems unlikely, blood cultures were drawn and show NGTD. He was in rapid atrial fibrillation on arrival but that seemed to be brief. He has been normotensive and without significant hypoxia. Anion gap is 15 and ABG shows a compensated respiratory alkalosis. (4) Obstructive sleep apnea on CPAP: Code(s): G47.33 - Obstructive sleep apnea (adult) (pediatric) Status: Acute Assessment and Plan: Continue home CPAP 16 with room air. Obtain an overnight oximetry tonight on these settings. (5) Essential hypertension: Code(s): I10 - Essential (primary) hypertension Status: Acute Assessment and Plan: Chronic, continue home medications - amlodipine 5 mg daily - losartan 50 mg daily - blood pressures remain stable, continue to monitor (6) Chronic kidney disease, stage 3: Code(s): N18.30 - Chronic kidney disease, stage 3 unspecified Status: Acute Assessment and Plan: Chronic, appears at baseline - Avoid nephrotoxic medications - Renally dose medications - Monitor I/O (7) Left upper lobe pulmonary nodule: Code(s): R91.1 - Solitary pulmonary nodule Status: Acute Assessment and Plan: Chronic Chest/abdomen/pelvis CTA: Stable 5 mm left pulmonary nodule Continue to monitor Time Spent With Patient Time with patient: 25 - 35 minutes Subjective Date/time seen: 07/10/24 08:52 Interval history: 78-year-old male with history of tobacco abuse since the of 13 (quit 05/22/2024), chronic obstructive pulmonary disease, obstructive sleep apnea on CPAP, deep venous thrombosis, and hypertension who presented to the hospital via EMS from home with complaints of shortness of breath. Patient is pleasant lying comfortably in bed. He states he feels like he is 50% back to normal. He continues to endorse shortness of breath but states that it is improving every day. He states that productive cough has improved as well. He has no other complaints denying chest pain, palpitations, nausea/vomiting and abdominal pain. Review of Systems Review of Systems: All systems reviewed & are unremarkable except as noted in HPI and below Exam Narrative: AF HR 95 RR 18 SpO2 92 BP 120/59 General: well nourished, well-developed male in no acute respiratory distress who is nontoxic appearing, lying semi recumbent in bed. HEENT: Normocephalic. Atraumatic. Extraocular movement intact. No facial asymmetry. Chest: Lungs with slight expiratory wheeze on auscultation bilaterally. CV: Heart was regular rate and rhythm. Abd: Abdomen was soft. Nontender. Nondistended. Positive bowel sounds. Ext: No clubbing, cyanosis, or edema. DP pulses bilaterally. Neuro: Patient is alert and oriented x4. Speech is clear. Objective Data Vital Signs Vital Signs: Vital Signs - 24 hr 07/09/24 10:15 07/09/24 11:14 07/09/24 11:14 Temperature Pulse Rate 101 H Respiratory Rate 22 H Blood Pressure Pulse Oximetry 91 Oxygen Delivery Room Air Room Air Oxygen Flow Rate Fraction of Inspired Oxygen 21 21 07/09/24 11:20 07/09/24 12:00 07/09/24 14:00 Temperature 97.4 F L Pulse Rate 97 108 H 101 H Respiratory Rate 22 H 18 Blood Pressure 127/54 L Pulse Oximetry 97 Oxygen Delivery Oxygen Flow Rate Fraction of Inspired Oxygen 07/09/24 16:00 07/09/24 16:57 07/09/24 16:58 Temperature Pulse Rate 91 113 H 113 H Respiratory Rate 22 H 20 Blood Pressure Pulse Oximetry 87 L Oxygen Delivery Room Air Oxygen Flow Rate Fraction of Inspired Oxygen 07/09/24 17:15 07/09/24 19:57 07/09/24 20:00 Temperature Pulse Rate 95 93 Respiratory Rate 20 20 Blood Pressure Pulse Oximetry Oxygen Delivery Room Air Oxygen Flow Rate Fraction of Inspired Oxygen 07/09/24 20:00 07/09/24 20:10 07/09/24 20:11 Temperature Pulse Rate 98 83 Respiratory Rate 20 Blood Pressure Pulse Oximetry 93 Oxygen Delivery Nasal Cannula Oxygen Flow Rate 2 Fraction of Inspired Oxygen 07/09/24 21:22 07/09/24 23:38 07/10/24 00:00 Temperature 98.6 F Pulse Rate 99 78 98 Respiratory Rate 18 20 Blood Pressure 133/71 Pulse Oximetry 96 94 Oxygen Delivery Oxygen Flow Rate Fraction of Inspired Oxygen 07/10/24 00:00 07/10/24 00:12 07/10/24 01:43 Temperature Pulse Rate 105 H 101 H 86 Respiratory Rate 20 Blood Pressure Pulse Oximetry 94 Oxygen Delivery Oxygen Flow Rate Fraction of Inspired Oxygen 07/10/24 04:00 07/10/24 04:32 07/10/24 04:40 Temperature Pulse Rate 92 90 91 Respiratory Rate 20 20 Blood Pressure Pulse Oximetry Oxygen Delivery Oxygen Flow Rate Fraction of Inspired Oxygen 07/10/24 05:00 07/10/24 08:14 07/10/24 08:16 Temperature 98.2 F Pulse Rate 88 86 Respiratory Rate 16 18 Blood Pressure 128/69 Pulse Oximetry 93 91 Oxygen Delivery Room Air Oxygen Flow Rate Fraction of Inspired Oxygen Intake/Output Intake/Output: Intake & Output 07/07/24 07/08/24 07/09/24 07/10/24 23:59 23:59 23:59 23:59 Intake Total 1140 1918 790 Output Total 300 500 300 Balance 840 1418 490 Meds/Results Medications: Active Medications Generic Name Dose Route Start Last Admin Trade Name Freq PRN Reason Stop Dose Admin Acetaminophen 650 mg 07/08/24 07:23 Acetaminophen 325 Mg Tablet PO Q4H PRN Mild Pain (1-3) or Fever Hydrocodone Bitart/Acetaminophen 1 tab 07/08/24 14:09 07/09/24 20:44 Hydrocodone/Acetaminophen (*Crx) 5-325 Mg Tablet PO 1 tab Q6H PRN Administration pain 4-10 Amlodipine Besylate 5 mg 07/09/24 09:00 07/10/24 08:25 Amlodipine Besylate 5 Mg Tablet BY MOUTH 5 mg DAILY ADALGISA Administration Apixaban 5 mg 07/08/24 21:00 07/10/24 08:25 Apixaban 5 Mg Tablet PO 5 mg Q12HR ADALGISA Administration Aspirin 81 mg 07/09/24 09:00 07/10/24 08:25 Aspirin 81 Mg Enteric Tablet PO 81 mg DAILY ADALGISA Administration Fluticasone/Umeclidinium/Vilanterol 1 puff 07/10/24 08:40 Fluticasone/Umeclidin/Vilanter 100-62.5-25 Mcg Ellipta INHALATION DAILYRT ADALGISA Cefepime HCl 2 gm in 50 mls @ 100 mls/hr 07/08/24 10:00 07/10/24 06:30 Maxipime 2 Gm/Ns 50 Ml IVPB Not Given Q12H ADALGISA Doxycycline Hyclate 100 mg in 100 mls @ 100 mls/hr 07/08/24 10:00 07/10/24 06:30 Vibramycin 100 Mg/Ns 100 Ml IVPB Not Given Q12H ADALGISA Losartan Potassium 50 mg 07/09/24 09:00 07/10/24 08:25 Losartan Potassium 50 Mg Tablet PO 50 mg QAM ADALGISA Administration Ondansetron HCl 4 mg 07/08/24 07:23 Ondansetron Inj 4 Mg/2 Ml Vial IV PUSH Q4H PRN Nausea Perflutren Lipid Microsphere 0 ml 07/08/24 09:50 Perflutren Lipid Microspheres 1.5 Ml Vial Diluted To 10 Ml Total Volume IV PUSH 07/11/24 09:50 ONCE PRN adequate visualization Protocol Perflutren Lipid Microsphere 0 ml 07/08/24 11:24 Perflutren Lipid Microspheres 1.5 Ml Vial Diluted To 10 Ml Total Volume IV PUSH 07/11/24 11:24 ONCE PRN adequate visualization Protocol Prednisone 40 mg 07/09/24 11:00 07/10/24 08:25 Prednisone 20 Mg Tablet PO 40 mg DAILY@0800 ADALGISA Administration Roflumilast 500 mcg 07/09/24 09:00 07/10/24 08:25 Roflumilast 500 Mcg Tablet PO 500 mcg DAILY ADALGISA Administration Rosuvastatin Calcium 20 mg 07/09/24 09:00 07/10/24 08:25 Rosuvastatin 20 Mg Tablet BY MOUTH 20 mg DAILY ADALGISA Administration Tamsulosin HCl 0.4 mg 07/09/24 09:00 07/10/24 08:25 Tamsulosin Hcl 0.4 Mg Capsule BY MOUTH 0.4 mg DAILY ADALGISA Administration Trazodone HCl 50 mg 07/08/24 14:09 07/09/24 20:44 Trazodone Hcl 50 Mg Tablet PO 50 mg QHS PRN Administration insomnia Radiology Results: ITS Impressions Chest X-Ray 07/08/24 06:53 Impression: Clear lungs. Possible COPD. Chest/Abdomen/Pelvis CTA 07/08/24 12:28 Impression: No acute abnormality. Severe emphysema. Stable 5 mm left upper lobe pulmonary nodule. Labs Labs: Laboratory Results - last 24 hr 07/09/24 07/10/24 13:59 06:58 WBC 14.8 H RBC 3.21 L Hgb 10.2 L Hct 31.3 L MCV 97.5 MCH 31.8 MCHC 32.6 RDW 13.8 Plt Count 198 MPV 10.4 D-Dimer 0.50 H Sodium 135 L Potassium 3.9 Chloride 108 H Carbon Dioxide 20 L Anion Gap 7 BUN 33 H Creatinine 1.37 H Estim Creat Clear Calc 36 Estimated GFR 50 L Glucose 120 H Calcium 8.8 Total Bilirubin 0.7 AST 36 ALT 23 Alkaline Phosphatase 80 Total Protein 6.0 L Albumin 3.1 L Quality VTE Prophylaxis VTE prophylaxis: pharmacologic ordered
[2024-07-10] MEDS: FLUTICASONE/UMECLIDIN/VILANTER 100-62.5-25 MCG ELLIPTA 1 PUFF INHALATION (11:46)
[2024-07-10] MEDS: CEFEPIME 2 GM/NS 50 ML 2 GM/50 ML BAG IVPB ×2 (11:54→22:13)
[2024-07-10] MEDS: DOXYCYCLINE 100 MG/NS 100 ML 100 MG/100 ML BAG IVPB ×2 (11:54→21:00)
[2024-07-10] MEDS: traZODone HCL 50 MG TABLET PO (22:17)
[2024-07-11] VITALS (9 sets, daily range): BP systolic 134; BP diastolic 66; PULSE 59–109; RESP 16; TEMP 37; O2SAT 89–95
[2024-07-11 05:18] LABS: Hematocrit 33.7 % (42.0-52.0); Mean Corpuscular HGB Conc 32.6 g/dl (32-36); Mean Corpuscular Hemoglobin 31.5 pg (26-34); Mean Corpuscular Volume 96.6 fl (80-100); Mean Platelet Volume 10.4 fl (7.4-10.4); Platelet Count Result 211 k/mm3 (150-375); Red Blood Count 3.49 M/mm3 (4.6-6.20)
[2024-07-11 05:36] LABS: Alanine Aminotransferase 39 U/L (6-50); Albumin Level 3.5 g/dL (3.5-5.1); Alkaline Phosphatase 83 U/L (38-126); Anion Gap 9 mmol/L (4-12); Aspartate Amino Transferase 55 U/L (17-59); Bilirubin,Total 0.7 mg/dL (0.2-1.3); Blood Urea Nitrogen 39 mg/dL (9-20); Carbon Dioxide 21 mmol/L (22-30); Chloride 107 mmol/L (98-107); Estimated CRCL calculation 32 ml/min; Estimated Glomerular Filt Rate 44; Glucose 90 mg/dL (65-110); Potassium 4.2 mmol/L (3.4-5.0); Sodium 137 mmol/L (137-145)
[2024-07-11] MEDS: FLUTICASONE/UMECLIDIN/VILANTER 100-62.5-25 MCG ELLIPTA 1 PUFF INHALATION (07:59)
--- NOTE | 2024-07-11 08:01 | P.PNPL_ITS ---
Progress Note: A&P Assessment and Plan (1) Acute exacerbation of chronic obstructive pulmonary disease: Code(s): J44.1 - Chronic obstructive pulmonary disease with (acute) exacerbation Status: Acute Assessment and Plan: GOLD grade 1 group E COPD. Patient is former tobacco user, quit . Alpha 1 anti trypsin genotype MM. PFTs on 08/19/2021 with an FEV1 of 1.94 L, 90% predicted, ratio 55% predicted, no bronchodilator response, normal lung volumes and a moderately decreased diffusing capacity that remains moderately decreased when adjusted for alveolar volume. He does not wear oxygen at home. He wears CPAP 16 for obstructive sleep apnea. 06/28/2024: patient says he has been sick for months and recently has worsening cough, shortness of breath and phlegm production. CTA scan of the chest shows No PE, severe apical predominant panlobular emphysema with no focal masses or consolidations. ABG on 2 L 7.4 . COVID, influenza, RSV RT PCR negative. currently on room air with saturations 94%. I believe patient does have a COPD exacerbation. No evidence of PE, fluid overload, ACS, and currently is back in sinus rhythm. there is no evidence of hypercarbic or hypoxemic respiratory failure. Plan: I will increase the patient's DuoNebs to q.4 hours. I will change him to Solu-Medrol 40 mg IV q.6. I will discontinue his trelegy 100 as he is on maximum doses of beta agonist and muscarinic antagonists with the DuoNebs q.4 hours. Patient has no focal infiltrates on a CT scan of the chest but agree with cefepime since he has received previous antibiotics and Doxycycline. Continue Daliresp 500 q.day. I will send urine Legionella, urine pneumococcal, mycoplasma IgM, respiratory pathogen panel looking for alternative infectious etiologies. I will place him on continuous pulse oximetry. I will order sputum culture. await echocardiogram results. 07/09/24: patient is currently wearing his home CPAP 16 and room air with saturations 91%. Through the mask he tells me that he is breathing better and 50% back to his normal. He has minimal cough and phlegm production. He is afebrile. White blood cell count 11.9, creatinine 1.29, lactic acid 1.6, p rocalcitonin 0.1. No wheezing on exam. Plan: Will change the patient to prednisone 40 mg p.o.. Continue DuoNebs q.4 hours. Continue Cefepime and doxycycline, both day 2. Continue Daliresp 500 mcg q.day. Goal saturation 90-94%, adjusted oxygen accordingly. urine Legionella, urine pneumococcal, mycoplasma IgM and respiratory pathogen panel pending. 07/10/2024: Patient tells me he is improving. He is 65% back to his normal. he tells me he is breathing better than he was since January of 2024. On a good day at home he can walk 50 ft and on a bad day he can walk 25 ft. Yester day he walked to the bathroom approximately 25 ft and had his usual dyspnea on exertion. His cough is it is normal. He has less phlegm production the normal and no hemoptysis. When I enter the room he is on 2 L nasal cannula saturations 95%. I changed room air and after 7 minutes saturations were 91%. Patient only slept for an hour last night with his home CPAP of 16 on room air. He did not h ave difficulty sleeping because of respiratory issues. He says that his sleep schedule is irregular any goes to sleep about 3:00 a.m. at home. His weight today is 83 kg. Plan: Continue prednisone 40 mg p.o. q.day, day 3 of steroids. I will change his DuoNebs to his home trelegy 100. Continue Daliresp 500. Goal saturation 90-94%. Adjust act oxygen accordingly. Continue cefepime and doxycycline both day 3. urine Legionella, urine pneumococcal, mycoplasma IgM and respiratory pathogen panel pending. Later in the day obtain download:Download From [employer] from 04/11/2024 through 07/09/2024: patient is on CPAP 16. Usage days greater than or equal to 4 hours is 87%. Average usage on days used is 7 hours and 9 minutes. AHI 0.8, apnea index 0.2, hypopnea index 0.6, Central apnea index 0.1. Median leak 1.5, 95th percentile leak 3.8, maximum leak 7.1. I interpret this download as good compliance, adequate pressures and low leak. 07/12/2023: Patient feels the same as yesterday and has improved since admission and is doing better than he has since January of 2024. He states his cough is normal, his phlegm is normal in producing white phlegm. Yesterday he walked 12 ft and then 72 ft with physical therapy and saturations decreased to 87. Currently is on room air with saturations 94%. white blood cell count 11.0, creatinine 1.53. Patient had an overnight oximetry on CPAP 16 and room air his home settings with recording duration of 6 hours and 28 minutes. Average saturation 94%. Low saturation 90%. Time with saturation less than or equal to 88% was 0 minutes. Oxygen desaturation index 0.6. urine Legionella, urine pneumococcal, mycoplasma IgM and respiratory pathogen panel pending. From a pulmonary perspective patient can be discharged on these pulmonary medications: Prednisone 40 mg p.o. q.day x2 days Cefdinir 300 mg p.o. b.i.d. times 3 days Doxycycline 100 mg p.o. b.i.d. x3 days Trelegy 100 at 1 puff q.day Daliresp 500 mcg p.o. q.day Rescue albuterol 2 puffs q.4 hours p.r.n. shortness of breath or wheezing Oxygen at rest and with activity per formal home O2 assessment which I have ordered. when he naps or sleeps: CPAP 16 with room air. follow-up with his previously scheduled appointment in the [facility] on 08/26/2024 at 11:30 a.m.. Discussed with Fabiola Galloway, will follow with you. (2) DOMINIC (obstructive sleep apnea): Code(s): G47.33 - Obstructive sleep apnea (adult) (pediatric) Status: Acute Assessment and Plan: Patient has obstructive sleep apnea on CPAP 16 at home. He has not been able to wear his machine because of his respiratory difficulties the last 2-3 nights. Patient did not tolerate the hospital CPAP 10 last night. Plan: I have talked to the will bring his home CPAP machine to the hospital. The patient can attempt to wear this tonight if it is comfortable, otherwise will hold off on CPAP until he improves. 07/09/24: Patient wearing his home unit of CPAP 16 and says it feels good. He slept well last night. Plan: Continue home CPAP 16 with room air. 07/10/24: Patient sporadically wearing his home CPAP with room air in the hospital because of 0 regular sleep patterns. Plan: Continue home CPAP 16 with room air. I will perform an overnight oximetry tonight on these settings. Later in the day obtain download:Download From [employer] from 04/11/2024 through 07/09/2024: patient is on CPAP 16. Usage days greater than or equal to 4 hours is 87%. Average usage on days used is 7 hours and 9 minutes. AHI 0.8, apnea index 0.2, hypopnea index 0.6, Central apnea index 0.1. Median leak 1.5, 95th percentile leak 3.8, maximum leak 7.1. I interpret this download as good compliance, adequate pressures and low leak. I interpret this download as good compliance, adequate pressures and low leak. 07/12/2023: Patient wore his home CPAP 16 with room air and did well. Patient had an overnight oximetry on CPAP 16 and room air his home settings with recording duration of 6 hours and 28 minutes. Average saturation 94%. Low saturation 90%. Time with saturation less than or equal to 88% was 0 minutes. Oxygen desaturation index 0.6. Plan: Continue home a home CPAP 16 with room air when he naps and sleeps. Subjective Date/time seen: 07/11/24 08:01 Interval history: 07/08/2024: This is a new pulmonary consult for COPD exacerbation and AFib with RVR. Patient is followed in the Pulmonary Clinic in last seen on 05/22/2024: 7 month follow-up regarding DOMINIC on CPAP and COPD. He is here today with his partner, Lissette. Hospitalized 03/13 - 03/14/23, treated for COPD exacerbation, RSV positive. Required supplemental oxygen initially, able to be weaned to room air prior to discharge. He has been sick since 2 weeks prior to Thanksgiving with MILIAN, cough, sputum yellow/green, wheezing, and some chest pains. He reports his grandchildren were sick as the time. He tested negative for COVID. PCP prescribed abx and steroid on 03/26 for COPD exacerbation. He felt this did help his symptoms but then he rebounded. He had a recent CXR that was clear. Today, he reports continued MILIAN walking 50ft, productive coughing discolored without blood, wheezing, and chest pains with coughing. He is maintained on Trelegy 100 daily and albuterol PRN. Rescue use 2-3x/week. He is compliant with CPAP and doing well with this. He smokes cigarettes 1ppd. Smokes marijuana occasionally, not every day for pain control. He plans to quit smoking today. plan: He did not like breztri. Continue trilogy 100 and p.r.n. albuterol. Start Daliresp. Start 250 a day for a month and then increase to 500 q.day. obstructive sleep apnea on CPAP 16 download shows excellent compliance, 100% nights used, average usage 6.7 hours a night. AHI 0.9. Low-dose CT scan scheduled 06/01/2024 06/01/2024: Low-dose CT scan with Lung rads 2, recommend follow-up in 12 months. Advanced emphysema. 4 mm nodule posterior lung apex new from prior exam. 4 mm irregular nodule in the right lung apex new from prior exam. Probably early cirrhotic changes of liver. 07/08/2024: Patient tells me he has been sick since . He did have RSV in February of 2024. He has received antibiotics previously. patient tells me he had his last cigarette 3 weeks ago and he has only had 1 cigarette since 05/22/2024. Currently patient tells me he has a cough, increased phlegm production and worsening dyspnea on exertion over the last 48 hours that prompted his emergency department visit. He denies any fever but felt chills with no sweats or diaphoresis. In the emergency department his white blood cell count was 11.8 with eosinophils 0.2%. His creatinine was 1.16, serum bicarbonate was 17, his COVID, influenza RSV RT PCR studies were negative. 2 L ABG 7.4 07/23/1987. Repeat on 2 L 7.. Patient has CT angiogram chest abdomen pelvis with no PE, severe apical predominant panlobular emphysema. His procalcitonin was 0.1. initial lactic acid was 3.2 approximately 3 hours later was 7.3. And 5-1/2 hours later was 4.7. His BNP 534 his troponin was negative. In the emergency department he had AFib RVR treated with metoprolol.. When I enter the room today was on 2 L nasal cannula saturations 97%. I decreased him to room air and over the next 12 minutes saturations remain 94% Later in the day echocardiogram with EF 65-70, grade 1 diastolic dysfunction, normal RV size and function, normal right atrial size. 07/09/24: patient is currently wearing his home CPAP 16 and room air with saturations 91%. Through the mask he tells me that he is breathing better and 50% back to his normal. He has minimal cough and phlegm production. He is afebrile. White blood cell count 11.9, creatinine 1.29, lactic acid 1.6, procalcitonin 0.1. No wheezing on exam. 07/10/2024: Patient tells me he is improving. He is 65% back to his normal. he tells me he is breathing better than he was since January of 2024. On a good day at home he can walk 50 ft and on a bad day he can walk 25 ft. Yesterday he walked to the bathroom approximately 25 ft and had his usual dyspnea on exertion. His cough is it is normal. He has less phlegm production the normal and no hemoptysis. When I enter the room he is on 2 L nasal cannula saturations 95%. I changed room air and after 7 minutes saturations were 91%. Patient only slept for an hour last night with his home CPAP of 16 on room air. He did not have difficulty sleeping because of respiratory issues. He says that his sleep schedule is irregular any goes to sleep about 3:00 a.m. at home. His weight today is 83 kg. Later in the day obtain download:Download From [facility] from 04/11/2024 through 07/09/2024: patient is on CPAP 16. Usage days greater than or equal to 4 hours is 87%. Average usage on days used is 7 hours and 9 minutes. AHI 0.8, apnea index 0.2, hypopnea index 0.6, Central apnea index 0.1. Median leak 1.5, 95th percentile leak 3.8, maximum leak 7.1. I interpret this download as good compliance, adequate pressures and low leak. 07/12/2023: Patient feels the same as yesterday and has improved since admi ssion and is doing better than he has since January of 2024. He states his cough is normal, his phlegm is normal in producing white phlegm. Yesterday he walked 12 ft and then 72 ft with physical therapy and saturations decreased to 87. Currently is on room air with saturations 94%. white blood cell count 11.0, creatinine 1.53. Patient had an overnight oximetry on CPAP 16 and room air his home settings with recording duration of 6 hours and 28 minutes. Average saturation 94%. Low saturation 90%. Time with saturation less than or equal to 88% was 0 minutes. Oxygen desaturation index 0.6. DATA 07/08/24: Echo Summary 1. Definity contrast administered improved wall motion interpretation. 2. Left ventricular chamber dimension is normal. 3. Left ventricular systolic function is normal, estimated at 65-70%. 4. The left ventricular diastolic function is grade I diastolic dysfunction. 5. E/e' 6 is not elevated. 6. There is mild aortic valve sclerosis. Right Ventricle Right ventricular chamber dimension is normal. Right ventricular systolic function is normal. Left Atria Left atrial chamber dimension is normal. Right Atria Right atrial chamber dimension is normal. No RVSP calculated. 07/08/2024: Clinical Indication: Shortness of breath, lactic acidosis CT Scan of the Chest, Abdomen, and Pelvis with Contrast: Technique: Contiguous sections were acquired throughout the chest, abdomen, and pelvis after intravenous administration of 100 cc of Omnipaque 350. Dose reduction technique was used on this scan by utilizing automated exposure control and iterative reconstruction technique. The dose-length product (DLP) was 416.05 mGy-cm. Comparison: 06/01/2024 Findings: There is no evidence of any significant mediastinal, hilar or axillary lymphadenopathy. The mediastinal soft tissues appear normal. No aortic aneurysm or dissection. No pulmonary embolus evident. There is no evidence of pleural or pericardial effusion. Severe emphysema present. Stable 5 mm left upper lobe pulmonary nodule (axial image 21). The liver, spleen, pancreas, gallbladder, adrenals and kidneys are within normal limits, siphon bilateral renal cysts. No evidence of aortic aneurysm or dissection. No lymphadenopathy. No bowel obstruction or bowel wall thickening. There is no evidence to suggest acute appendicitis. Urinary bladder is unremarkable. No pelvic mass evident. No ascites. There is streak artifact in the pelvis from bilateral hip orthopedic hardware. There is degenerative spondylosis of the spine. Impression: No acute abnormality. Severe emphysema. Stable 5 mm left upper lobe pulmonary nodule. CXR 05/20/24 - No acute cardiopulmonary process. LDCT 04/26/23 - There is moderate to advanced emphysema. No pulmonary nodule evident. Alpha 1 genotype MM, normal. PFT 08/19/21 - Mild obstructive airway disease in the form of small airway disease with no response to bronchodilators on this testing.? Severely reduced lung diffusion capacity. 6m2 no O2 needed. PFT 11/24/17 moderate obstructive ventilatory defect with severe small airways disease.? No acute bronchodilator response.? Moderately decreased DLCO. Lexiscan stress 07/19/21 - negative 02/21/2024 through 05/20/2024: Patient is on CPAP 16. Usage days greater than or equal to 4 hours is 83%. Average usage days used is 6 hours and 46 minutes. AHI 0.9, apnea index 0.3, hypopnea index 0.7, median leak 3.4, 95th percentile leak 9.7, maximum leak 15.9. I interpret this download as good compliance, adequate pressures and low leak. Review of Systems Constitutional: Constitutional: Reports no additional constitutional complaints Eyes: Eyes: Reports no additional eye complaints ENT: Reports system reviewed and no additional complaints, except as documented Cardiovascular: Cardiovascular: Reports no additional cardiovascular complaints Respiratory: Respiratory: Reports no additional respiratory complaints Gastrointestinal: Gastrointestinal: Reports no additional gastrointestinal complaints Musculoskeletal: Musculoskeletal: Reports no additional musculoskeletal complaints Neurologic: Reports system reviewed and no additional complaints, except as documented Psychiatric: Psychiatric: Reports no additional psychiatric complaints Endocrine: Endocrine: Reports no additional endocrine complaints Hematologic/Lymphatic: Hematologic/Lymphatic: Reports no additional hematologic/lymphatic complaints Allergic/Immunologic: Allergic/Immunologic: Reports no additional allergic/immunologic complaints Exam Narrative: comfortable appearing on room air. Const: General: cooperative, healthy appearing and comfortable Orientation/consciousness: oriented to person, oriented to place and oriented to time HENMT: Head: normal to inspection Ears: hearing grossly normal bilaterally Eyes: General: appearance normal, both eyes and all related structures Neck: Neck: normal visual inspection Chest: Chest palpation & inspection: normal inspection of the chest Resp: Effort & Inspection: normal respiratory effort and able to speak in complete sentences Auscultation: no crackles, no rales, no rhonchi, no wheezes and lung sounds not diminished Other: Cardio: Jugular venous distension: no JVD GI: Inspection: normal to inspection Skin: General skin exam: normal color Neuro: General: oriented to person, oriented to place and oriented to time Extrem: General: normal to inspection and no edema Psych: Appearance: grossly normal Objective Data Vital Signs Vital Signs: Vital Signs - 24 hr 07/10/24 08:14 07/10/24 08:16 07/10/24 08:20 Temperature Pulse Rate 86 Respiratory Rate 18 Blood Pressure Pulse Oximetry 91 92 Oxygen Delivery Room Air Room Air 07/10/24 12:00 07/10/24 12:32 07/10/24 14:00 Temperature 36.6 C Pulse Rate 104 H 95 Respiratory Rate 18 Blood Pressure 120/59 L Pulse Oximetry 92 Oxygen Delivery Room Air 07/10/24 16:00 07/10/24 20:00 07/10/24 20:41 Temperature 37.1 C Pulse Rate 86 87 82 Respiratory Rate 16 Blood Pressure 118/62 Pulse Oximetry 94 Oxygen Delivery 07/10/24 22:25 07/10/24 22:30 07/11/24 00:00 Temperature Pulse Rate 80 59 L Respiratory Rate Blood Pressure Pulse Oximetry 94 94 Oxygen Delivery Room Air 07/11/24 04:00 07/11/24 05:06 Temperature 37.0 C Pulse Rate 78 71 Respiratory Rate 16 Blood Pressure 134/66 Pulse Oximetry 95 Oxygen Delivery Intake/Output Intake/Output: Intake & Output 07/08/24 07/09/24 07/10/24 07/11/24 23:59 23:59 23:59 23:59 Intake Total 1140 1918 2428 250 Output Total 300 500 700 300 Balance 840 1418 1728 -50 Meds/Results Medications: Active Medications Generic Name Dose Route Start Last Admin Trade Name Freq PRN Reason Stop Dose Admin Acetaminophen 650 mg 07/08/24 07:23 Acetaminophen 325 Mg Tablet PO Q4H PRN Mild Pain (1-3) or Fever Hydrocodone Bitart/Acetaminophen 1 tab 07/08/24 14:09 07/09/24 20:44 Hydrocodone/Acetaminophen (*Crx) 5-325 Mg Tablet PO 1 tab Q6H PRN Administration pain 4-10 Amlodipine Besylate 5 mg 07/09/24 09:00 07/10/24 08:25 Amlodipine Besylate 5 Mg Tablet BY MOUTH 5 mg DAILY ADALGISA Administration Apixaban 5 mg 07/08/24 21:00 07/10/24 21:00 Apixaban 5 Mg Tablet PO 5 mg Q12HR ADALGISA Administration Aspirin 81 mg 07/09/24 09:00 07/10/24 08:25 Aspirin 81 Mg Enteric Tablet PO 81 mg DAILY ADALGISA Administration Cefdinir 300 mg 07/11/24 09:00 Cefdinir 300 Mg Capsule PO 07/13/24 21:01 Q12HR ADALGISA Doxycycline Hyclate 100 mg 07/11/24 09:00 Doxycycline Hyclate 100 Mg Tablet PO 07/13/24 21:01 Q12HR [facility] Fluticasone/Umeclidinium/Vilanterol 1 puff 07/10/24 08:40 07/11/24 07:59 Fluticasone/Umeclidin/Vilanter 100-62.5-25 Mcg Ellipta INHALATION 1 puff DAILYRT ADALGISA Administration Losartan Potassium 50 mg 07/09/24 09:00 07/10/24 08:25 Losartan Potassium 50 Mg Tablet PO 50 mg QAM ADALGISA Administration Ondansetron HCl 4 mg 07/08/24 07:23 Ondansetron Inj 4 Mg/2 Ml Vial IV PUSH Q4H PRN Nausea Perflutren Lipid Microsphere 0 ml 07/08/24 09:50 Perflutren Lipid Microspheres 1.5 Ml Vial Diluted To 10 Ml Total Volume IV PUSH 07/11/24 09:50 ONCE PRN adequate visualization Protocol Perflutren Lipid Microsphere 0 ml 07/08/24 11:24 Perflutren Lipid Microspheres 1.5 Ml Vial Diluted To 10 Ml Total Volume IV PUSH 07/11/24 11:24 ONCE PRN adequate visualization Protocol Prednisone 40 mg 07/09/24 11:00 07/10/24 08:25 Prednisone 20 Mg Tablet PO 07/12/24 08:01 40 mg DAILY@0800 ADALGISA Administration Roflumilast 500 mcg 07/09/24 09:00 07/10/24 08:25 Roflumilast 500 Mcg Tablet PO 500 mcg DAILY ADALGISA Administration Rosuvastatin Calcium 20 mg 07/09/24 09:00 07/10/24 08:25 Rosuvastatin 20 Mg Tablet BY MOUTH 20 mg DAILY ADALGISA Administration Tamsulosin HCl 0.4 mg 07/09/24 09:00 07/10/24 08:25 Tamsulosin Hcl 0.4 Mg Capsule BY MOUTH 0.4 mg DAILY ADALGISA Administration Trazodone HCl 50 mg 07/08/24 14:09 07/10/24 22:17 Trazodone Hcl 50 Mg Tablet PO 50 mg QHS PRN Administration insomnia Radiology Results: ITS Impressions Chest X-Ray 07/08/24 06:53 Impression: Clear lungs. Possible COPD. Chest/Abdomen/Pelvis CTA 07/08/24 12:28 Impression: No acute abnormality. Severe emphysema. Stable 5 mm left upper lobe pulmonary nodule. Labs Labs: Laboratory Results - last 24 hr 07/11/24 04:58 WBC 11.0 H RBC 3.49 L Hgb 11.0 L Hct 33.7 L MCV 96.6 MCH 31.5 MCHC 32.6 RDW 14.0 Plt Count 211 MPV 10.4 Sodium 137 Potassium 4.2 Chloride 107 Carbon Dioxide 21 L Anion Gap 9 BUN 39 H Creatinine 1.53 H Estim Creat Clear Calc 32 Estimated GFR 44 L Glucose 90 Calcium 9.0 Total Bilirubin 0.7 AST 55 ALT 39 Alkaline Phosphatase 83 Total Protein 6.0 L Albumin 3.5
[2024-07-11] MEDS: amLODIPine BESYLATE 5 MG TABLET BY MOUTH (08:17)
[2024-07-11] MEDS: ROSUVASTATIN 20 MG TABLET BY MOUTH (08:18)
[2024-07-11] MEDS: LOSARTAN POTASSIUM 50 MG TABLET PO (08:18)
[2024-07-11] MEDS: APIXABAN 5 MG TABLET PO (08:18)
[2024-07-11] MEDS: predniSONE 20 MG TABLET 40 MG PO (08:18)
[2024-07-11] MEDS: DOXYCYCLINE HYCLATE 100 MG TABLET PO (08:18)
[2024-07-11] MEDS: TAMSULOSIN HCL 0.4 MG CAPSULE BY MOUTH (08:18)
[2024-07-11] MEDS: CEFDINIR 300 MG CAPSULE PO (08:18)
[2024-07-11] MEDS: ROFLUMILAST 500 MCG TABLET PO (08:18)
[2024-07-11] MEDS: ASPIRIN 81 MG ENTERIC TABLET PO (08:19)
--- NOTE | 2024-07-11 10:27 | PCRCNOTE ---
HOME O2 EVAL COMPLETE, NO REQUIREMENTS
--- NOTE | 2024-07-11 12:50 | P.DS_ITS ---
DS: Admitting Diagnosis Discharge Date 07/11/2024 Admitting Diagnosis Acute exacerbation of COPD Atrial fibrillation Lactic acidosis DOMINIC Hypertension CKD Left upper lobe pulmonary nodule DS: Discharge Diagnosis Discharge Diagnosis (1) Acute exacerbation of chronic obstructive pulmonary disease: Code(s): J44.1 - Chronic obstructive pulmonary disease with (acute) exacerbation Status: Acute (2) Atrial fibrillation: Code(s): I48.91 - Unspecified atrial fibrillation Status: Acute (3) Lactic acidosis: Code(s): E87.20 - Acidosis, unspecified Status: Acute (4) Obstructive sleep apnea on CPAP: Code(s): G47.33 - Obstructive sleep apnea (adult) (pediatric) Status: Acute (5) Essential hypertension: Code(s): I10 - Essential (primary) hypertension Status: Acute (6) Chronic kidney disease, stage 3: Code(s): N18.30 - Chronic kidney disease, stage 3 unspecified Status: Acute (7) Left upper lobe pulmonary nodule: Code(s): R91.1 - Solitary pulmonary nodule Status: Acute DS: Summary Hospital Course Reason for hospitalization: Acute exacerbation of COPD Atrial fibrillation Lactic acidosis DOMINIC Hypertension CKD Left upper lobe pulmonary nodule Hospital Course: 78-year-old male with history of tobacco abuse since the of 13 (quit 05/22/2024), chronic obstructive pulmonary disease, obstructive sleep apnea on CPAP, deep venous thrombosis, and hypertension who presented to the hospital via EMS from home with complaints of shortness of breath. Initial lactic acid level was 3.2 and a repeat level increased to 7.3. Received normal saline and level is trended back to WNL. The etiology of lactic acidosis is not entirely clear. Sepsis seems unlikely, blood cultures were drawn and show NGTD. Anion gap is 15 and ABG shows a compensated respiratory alkalosis. Chest XR showed clear lungs with possible COPD. Chest/abdomen/pelvis CTA showed no acute abnormality, severe emphysema, and a stable 5 mm left upper lobe pulmonary nodule. Patient endorsed productive cough, started on IV antibiotics and steroids for COPD exacerbation. Pulmonology consulted. Patient had an overnight oximetry performed on CPAP 16 with room air and no adjustments were required. Patient stable for discharge from pulmonology perspective on oral antibiotics and steroids to complete the course. He is to keep scheduled appointment with pulmonology for follow up. Home O2 eval performed prior to discharge and patient does not require chronic oxygen supplementation. During admission patient had new onset AFib with RVR-most l ikely secondary to pulmonary disease. Received IV metoprolol and converted back to sinus rhythm with heart rates in the 90s. Troponin x3 negative. Cardiology consulted. TTE showing LVEF 65-70% with grade I diastolic dysfunction. CHADS2 Vasc score of 4. Started on anticoagulation with Eliquis p.o. 5 mg b.i.d. HR remains stable throughout the rest of admission. Event monitor for 30 days at discharge to evaluate burden of AFib ordered by cardiology. Plan for outpatient stress test after recovering from acute illness and Cardiology follow-up in 4 weeks. Patient has no complaints at time of discharge denying chest pain, shortness a breath, palpitations, nausea/vomiting, and abdominal pain. Patient discharged home with family in stable condition. He has a primary care provider in 1 week and Pulmonology and Cardiology as scheduled. Status at Discharge Functional status at discharge: independent ambulation Time Spent with Patient Time attestation: Total time spent providing and/or coordinating discharge services: Time spent: Greater than 30 minutes Exam Narrative: AF HR 94 RR 16 SpO2 92 BP 134/66 General: male in no acute respiratory distress who is nontoxic appearing, sitting up in bed. HEENT: Normocephalic. Atraumatic. Extraocular movement intact. No facial asymmetry. Chest: Lungs clear on auscultation bilaterally. CV: Heart was regular rate and rhythm. Abd: Abdomen was soft. Nontender. Nondistended. Positive bowel sounds. Ext: No clubbing, cyanosis, or edema. DP pulses bilaterally. Neuro: Patient is alert and oriented x4. Speech is clear. DS: Data Data Completed and Pending Completed studies during hospitalization: Chest/abdomen/pelvis CTA Chest x-ray Labs on day of discharge: Labs from last 24 hours 07/11/24 04:58 WBC 11.0 H RBC 3.49 L Hgb 11.0 L Hct 33.7 L MCV 96.6 MCH 31.5 MCHC 32.6 RDW 14.0 Plt Count 211 MPV 10.4 Sodium 137 Potassium 4.2 Chloride 107 Carbon Dioxide 21 L Anion Gap 9 BUN 39 H Creatinine 1.53 H Estim Creat Clear Calc 32 Estimated GFR 44 L Glucose 90 Calcium 9.0 Total Bilirubin 0.7 AST 55 ALT 39 Alkaline Phosphatase 83 Total Protein 6.0 L Albumin 3.5 Preliminary micro results at discharge 07/08/24 10:47 Blood Culture - Preliminary Blood 07/08/24 10:35 Blood Culture - Preliminary Blood Discharge Plan Discharge Attending physician on discharge: Sandoval Vazquez Consulting providers: Anisha Sands; Maged Marcos Discharging Clinician: Fabiola Galloway Anticipated Discharge Date/Time: 07/11/24 11:28 Patient Disposition: Home Activity: as tolerated Diet: as tolerated and heart healthy Discharge Instructions: Discharge disposition: Patient admitted to the hospital for COPD exacerbation Evaluated by pulmonology during admission Take medications as prescribed Prednisone 40 mg p.o. q.day, course to be completed 07/12 Cefdinir 300 mg p.o. b.i.d., course to start to night and completed on 07/13 Doxycycline 100 mg p.o. b.i.d, course to start tonight and completed on 07/13 Trelegy 100 at 1 puff q.day Daliresp 500 mcg p.o. q.day Rescue albuterol 2 puffs q.4 hours p.r.n. shortness of breath or wheezing Attached is information on these medications Oxygen at rest and with activity per formal home O2 assessment which I have ordered. When he naps or sleeps: CPAP 16 with room air. Follow-up with his previously scheduled appointment in the Pulmonary [facility] on 08/26/2024 at 11:30 a.m.. Patient developed atrial fibrillation likely secondary to pulmonary disease Evaluated by cardiology Started on eliquis Strict bleeding precautions since you are being started on Eliquis including shaving with an electric razor, holding pressure for greater than 20 minutes for injury, protection of had with any falls, etc. 30 day event monitor to evaluate afib burder Outpatient stress test should be done following recovery of acute illness Outpatient cardiology follow up in 4 weeks, call for appointment Monitor blood pressures Take caution while standing, rising, or moving Change positions slowly taking a break between each position change If you standing feel dizzy sit back down and take a break Obtain a BMP in 5 days to reassess kidney function Encouraged to continue with yearly vaccinations Return to the emergency department if he developed sudden shortness of breath, chest pain, nausea, vomiting, upset stomach or intractable diarrhea Return to the emergency department if you develop fever greater than 101.5 Follow-up with the primary care physician within 1-2 weeks Thank you for [facility] for your healthcare needs Patient Instructions: Antibiotic Form, Doxycycline (By mouth), Albuterol (By mouth), Prednisone (By mouth), Cefdinir (By mouth), Apixaban (By mouth), Fluticasone/Umeclidinium/Vilanterol (By breathing), A-fib (Atrial Fibrillation) (DC), COPD (Chronic Obstructive Pulmonary Disease) (DC), Blood Thinners (DC) Patient Language: Maltese Stand Alone Forms: General Discharge Information Follow-up/Referrals: Anisha Sands MD [Physician] - 4 Weeks Maged Marcos MD [Physician] - Keep Reg. Scheduled Appt. Jackelyn Radford APRN [Primary Care Provider] - 1 Week Discharge Medications: New prednisone 20 mg Tablet 40 mg PO DAILY@0800 Qty: 1 0RF cefdinir 300 mg Capsule 300 mg PO Q12HR Qty: 5 0RF doxycycline hyclate 100 mg Tablet 100 mg PO Q12HR Qty: 5 0RF Eliquis 5 mg Tablet 5 mg PO Q12HR Qty: 60 0RF Continued aspirin [Adult Low Dose Aspirin] 81 mg tablet,delayed release (DR/EC) 81 mg PO DAILY Qty: 90 0RF Tylenol Extra Strength 500 mg powder in packet 500 mg PO Q6H PRN (Reason: Pain (Scale Score 4-6)) albuterol sulfate [Ventolin HFA] 90 mcg/actuation HFA aerosol inhaler 1 - 2 inh INHALATION Q4-6H PRN (Reason: shortness of breath or wheezing) Qty: 8.5 2RF trazodone 50 mg tablet 50 mg PO QHS PRN (Reason: insomnia) Trelegy Ellipta 100-62.5-25 mcg blister with device See Rx Instructions .ROUTE .COMPLEX Qty: 60 5RF Dose Instruction: INHALE 1 PUFF BY MOUTH DAILY. RINSE MOUTH AND SPIT AFTER EACH USE Rx Instructions: INHALE 1 PUFF BY MOUTH DAILY. RINSE MOUTH AND SPIT AFTER EACH USE losartan 100 mg tablet See Rx Instructions .ROUTE .COMPLEX Qty: 45 0RF Dose Instruction: TAKE 1/2 TABLET BY MOUTH DAILY Rx Instructions: TAKE 1/2 TABLET BY MOUTH DAILY rosuvastatin 20 mg tablet See Rx Instructions .ROUTE .COMPLEX Qty: 90 0RF Dose Instruction: TAKE 1 TABLET BY MOUTH DAILY Rx Instructions: TAKE 1 TABLET BY MOUTH DAILY tamsulosin 0.4 mg capsule See Rx Instructions .ROUTE .COMPLEX Qty: 90 0RF Dose Instruction: TAKE 1 CAPSULE BY MOUTH DAILY Rx Instructions: TAKE 1 CAPSULE BY MOUTH DAILY amlodipine 5 mg tablet See Rx Instructions .ROUTE .COMPLEX Qty: 90 0RF Dose Instruction: TAKE 1 TABLET BY MOUTH DAILY Rx Instructions: TAKE 1 TABLET BY MOUTH DAILY hydrocodone-acetaminophen 5-325 mg tablet 1 tablet PO Q6H PRN (Reason: pain) Qty: 60 0RF roflumilast [Daliresp] 500 mcg tablet 500 mcg PO DAILY Qty: 30 5RF Other Ambulatory Orders: Basic Metabolic Panel (Routine) Timeframe: 5 Days Location: Determined by Patient Ordered By: Fabiola ZAMORA cardiac event monitor (Routine) Timeframe: 1 Month Location: Determined by Patient Ordered By: Fabiola Galloway Date of admission: 07/10/24 13:23 Primary Care Provider: Jackelyn Radford Admitting Provider: Gabino Granda Attending physician on admission: Fabiola Galloway Condition: Stable Hospitalist MIPS Heart Failure (Exclusion) Patient has history of Heart Transplant or Left Ventricular Assistive Device?: No IF YES, STOP HERE Heart Failure (Qualifier) Patient has current or prior documentation of LVEF less than or equal to 40%, or mod/servere depressed LVSF?: No IF NO, STOP HERE
[2024-07-11 17:08] LABS: Mycoplasma IgM Antibody Titer 77 U/mL
[2024-07-11 19:28] LABS: Pneumococcal Antigen Urine NOT DETECTED
[2024-07-12 18:59] LABS: Adenovirus DNA Not Detected (Not Detected); Chlamydophila pneumoniae Not Detected (Not Detected); Coronavirus 229E Not Detected (Not Detected); Coronavirus HKU1 Not Detected (Not Detected); Coronavirus NL63 Not Detected (Not Detected); Coronavirus OC43 Not Detected (Not Detected); Human Metapneumovirus Not Detected (Not Detected); Human Parainfluenza Virus 1 Not Detected (Not Detected); Human Parainfluenza Virus 2 Not Detected (Not Detected); Human Parainfluenza Virus 3 Not Detected (Not Detected); Human Parainfluenza Virus 4 Not Detected (Not Detected); Human RSV B Not Detected (Not Detected); Influenza A Not Detected (Not Detected); Influenza B Not Detected (Not Detected); Mycoplasma pneumoniae Not Detected (Not Detected); Rhinovirus/Enterovirus Detected (Not Detected)
[2024-07-12 19:07] LABS: Legionella pneumophila Ag Ur NOT DETECTED
== END 2024-07-11 14:15 | disposition home or self-care (01) | DRG 191 ==
LOC: ANHED 07:25 → ANH2MED 07:45
PROVIDERS: Internal Medicine Pulmonary Disease; Physician Assistant; Admitting Provider General Practice; Emergency Provider Emergency Medicine; PCP Nurse Practitioner Family; Visit Provider Student in an Organized Health Care Education/Training Program
DX: J44.1 Chronic obstructive pulmonary disease with (acute) exacerbation (principal); E87.20 Acidosis, unspecified; I12.9 Hypertensive chronic kidney disease with stage 1 through stage 4 chronic kidney disease, or unspecified chronic kidney disease; I73.9 Peripheral vascular disease, unspecified; I48.91 Unspecified atrial fibrillation; N18.9 Chronic kidney disease, unspecified; E87.6 Hypokalemia; E78.5 Hyperlipidemia, unspecified; R91.1 Solitary pulmonary nodule; G47.33 Obstructive sleep apnea (adult) (pediatric); F12.90 Cannabis use, unspecified, uncomplicated; Z20.822 Contact with and (suspected) exposure to COVID-19; F17.210 Nicotine dependence, cigarettes, uncomplicated; Z86.718 Personal history of other venous thrombosis and embolism; Z79.82 Long term (current) use of aspirin
CPT/HCPCS: 36415; 36600; 71045; 71275; 74174; 80048; 80053; 80179; 81001; 82805; 83605; 83735; 83880; 84145; 84443; 84484; 85018; 85025; 85027; 85380; 85610; 85730; 86738; 87040; 87086; 87449; 87633; 87637; 87641; 87899; 93005; 94618; 94640; 94660; 94667; 94762; 96361; 96365; 96366; 96367; 96374; 96375; 96376; 97161; 99285; A9270; C8929; G0378; J0692; J2060; J2919; J7050; J7120; J7512; Q9957; Q9967